=== PATIENT | female | born 1995 | race Caucasian/White ===

== ENCOUNTER 2020-08-31 11:42 | Outpatient (CLI) | payer OTHER, SELFPAY ==
[2020-09-02 03:52] LABS: Patient Race White; SARS-CoV-2 RNA Undetected (Undetected); SARS-CoV-2 Specimen Source Nasopharynx
== END 2020-08-31 12:02 ==
PROVIDERS: PCP Nurse Practitioner Family; Visit Provider Nurse Practitioner Family
DX: J06.9 Acute upper respiratory infection, unspecified (principal)
CPT/HCPCS: U0003

== ENCOUNTER 2020-10-27 02:25 | Outpatient (CLI) | payer OTHER, SELFPAY ==
[2020-10-29 18:53] LABS: Patient Race White; SARS-CoV-2 RNA Undetected (Undetected); SARS-CoV-2 Specimen Source Nasal
== END 2020-10-27 02:45 ==
PROVIDERS: PCP Nurse Practitioner Family; Visit Provider Nurse Practitioner Family
DX: Z11.59 Encounter for screening for other viral diseases (principal); Z20.828 Contact with and (suspected) exposure to other viral communicable diseases
CPT/HCPCS: U0003

== ENCOUNTER 2020-11-02 02:24 | Outpatient (CLI) | payer OTHER, SELFPAY ==
[2020-11-03 23:24] LABS: COVID-19 RT-PCR Result NEGATIVE (Negative)
== END 2020-11-02 02:44 ==
PROVIDERS: PCP Nurse Practitioner Family; Visit Provider Nurse Practitioner Family
DX: Z20.828 Contact with and (suspected) exposure to other viral communicable diseases (principal); Z11.59 Encounter for screening for other viral diseases
CPT/HCPCS: U0003

== ENCOUNTER 2021-01-05 08:16 | Outpatient (CLI) | payer OTHER, SELFPAY ==
[2021-01-06 15:19] LABS: COVID-19 RT-PCR UVMMC Result Negative (Negative)
== END 2021-01-05 08:17 | disposition home or self-care (01) ==
LOC: LBO 08:16
PROVIDERS: PCP Nurse Practitioner Family; Visit Provider Nurse Practitioner Family
DX: Z20.822 Contact with and (suspected) exposure to COVID-19 (principal)
CPT/HCPCS: U0003

== ENCOUNTER 2021-05-28 01:27 | Outpatient (CLI) | payer OTHER, SELFPAY ==
[2021-05-28 12:41] LABS: HCT 42.3 % (36.0-46.0); HGB 13.7 g/dL (11.2-15.7); MCHC 32.4 % (32.0-36.0); MCV 95.7 fL (80-95); MPV 12.8 fL (8.0-11.0); Platelet Count 215 10^3/uL (130-400); RBC 4.42 10^6/uL (3.93-5.22); RDW 11.9 % (11.7-14.6); RDW-SD 41.6 fL
[2021-05-28 12:54] LABS: Anion Gap 8.9 mmol/L (3-11); BUN 9 mg/dL (7-18); CO2 28.1 mmol/L (21.0-32.0); CREATININE 0.8 mg/dL (0.55-1.02); Calcium 9.3 mg/dL (8.5-10.1); Chloride 105 mmol/L (98-107); Glucose 80 mg/dL (74-106); Potassium 4.2 mmol/L (3.5-5.1); Sodium 142 mmol/L (136-145); TSH 0.86 uIU/mL (0.36-3.74)
== END 2021-05-28 01:28 | disposition home or self-care (01) ==
LOC: LOS 01:27
PROVIDERS: PCP Nurse Practitioner Family; Visit Provider Nurse Practitioner Family
DX: R53.83 Other fatigue (principal)
CPT/HCPCS: 36415; 80048; 85027; 84439; 84443

== ENCOUNTER 2021-07-09 15:57 | Outpatient (REF) | payer OTHER, SELFPAY ==
[2021-07-11 01:25] LABS: COVID-19 RT-PCR UVMMC Result Negative (Negative)
== END 2021-07-09 15:58 | disposition home or self-care (01) ==
LOC: LBN 15:57
PROVIDERS: PCP Nurse Practitioner Family; Visit Provider Physician Assistant
DX: Z20.822 Contact with and (suspected) exposure to COVID-19 (principal)
CPT/HCPCS: U0003

== ENCOUNTER 2021-07-13 15:50 | Emergency (ER) | payer OTHER, SELFPAY ==
[2021-07-13] VITALS (7 sets, daily range): BP systolic 109–118; BP diastolic 59–70; PULSE 75–98; RESP 14–22; TEMP 36.3; O2SAT 100
--- NOTE | 2021-07-13 16:00 | DI.RAD_ITS ---
Exam(s) XR PORTABLE CHEST AP EXAM: XR PORTABLE CHEST AP CLINICAL HISTORY: shortness of breath. TECHNIQUE: 2D digital imaging was performed. COMPARISON: No exams were available for comparison FINDINGS: Heart size is normal. The mediastinum is not widened. Lungs are clear. No infiltrates nor obvious pleural effusions. IMPRESSION: No acute pulmonary findings on this single AP portable view of the chest. DATA REPOSITORY: RADIATION DOSE DELIVERED: All CT scans at this facility use at least one of these dose optimization techniques: automated exposure control; mA and/or kV adjustment per patient size (includes targeted e xams where dose is matched to clinical indication); or iterative reconstruction.
--- NOTE | 2021-07-13 16:00 | RT.EKG_ITS ---
APPROVED REPORT Exam: Resting ECG Reason for Exam: shortness of breath Patient Location: E HR:90 bpm ECG Measurements Heart Rate 90 AXIS NM 114 P 38 QRSd 77 QRS 61 QT 367 T 32 QTc 449 Conclusion Sinus rhythm...normal P axis, V-rate 60- 99
--- NOTE | 2021-07-13 16:20 | ED.GENADUL_ITS ---
Discharge Plan Disposition Patient Disposition: HOME Condition: Stable Discharge Details Clinical Impression: Asthma exacerbation, Shortness of breath Primary Care Provider: Jocelyn Dhillon ED Provider: Kilo Hudson Home Meds and New Rx's Prescriptions: New prednisone 20 mg tablet 60 mg PO DAILY 4 Days Qty: 12 RF: 0 Continued albuterol sulfate 2.5 mg /3 mL (0.083 %) solution for nebulization 2.5 mg IH Q6H PRN (Reason: shortness of breath or wheezing) Qty: 180 RF: 4 loratadine [Allergy Relief (loratadine)] 10 mg tablet 10 mg PO DAILY RF: 0 famotidine 20 mg tablet 20 mg PO DAILY Qty: 90 RF: 0 methocarbamol 500 mg tablet 500 mg PO TID PRN (Reason: muscle spasm) Qty: 30 RF: 0 montelukast 10 mg tablet 10 mg PO DAILY Qty: 90 RF: 4 desogestrel-ethinyl estradiol [Apri] 0.15-0.03 mg tablet 1 tab PO DAILY Qty: 168 RF: 4 albuterol sulfate 90 mcg/actuation HFA aerosol inhaler 2 inh IH Q6H PRN (Reason: shortness of breath or wheezing) Qty: 18 RF: 4 budesonide-formoterol [Symbicort] 80-4.5 mcg/actuation HFA aerosol inhaler 2 puff IH BID Qty: 10.2 RF: 4 fluticasone propionate [Allergy Relief (fluticasone)] 50 mcg/actuation spray,suspension 2 spray intranasal DAILY PRN (Reason: allergy symptoms) Qty: 15.8 RF: 4 epinephrine 0.3 mg/0.3 mL auto-injector 0.3 ml subcut Q5-15M PRN (Reason: hypersensitivity reaction) Qty: 2 RF: 4 benzonatate [Tessalon Perles] 100 mg capsule 100 mg PO TID PRN (Reason: cough) Qty: 14 RF: 0 indomethacin 50 mg capsule 50 mg PO DAILY RF: 0 Discharge Instructions Instructions: Asthma (ED) Additional Instructions: your blood work, ekg and xray did not show concerning findings take the prednisone once a day for 4 more days follow up with your primary care provider within a week if you feel more ill, have worsening difficulty breathing or severe chest pain return to the emergency department Medical Decision Making 25 yo female with hx of asthma, who comes in with one week of shortness of breath along with dry cough. She states she has seen her pcp and had a covid test done on Monday that was negative. She has been using her albuterol with minimal relief. She has no chest pain or pressure. Also notes some rhinorrhea. She appears well systemically on exam. She states she had a fever to 102 yesterday none today and denies ivdu. She has wheezing in both lower lung lobes on exam as well as the apices. No jvd, no calf tenderness or leg swelling and no murmurs, no rashes or other stigmata of endocarditis. I suspect asthma exacerbation in the setting of a viral uri vs allergies but given persistent symptoms and her fever yesterday will obtain cxr to evaluate for infiltrate. Her wells score is low but given her oral contraceptive use can't use perc to exclude PE, will obtain d dimer. No chest pain or pressure so doubt acs but could have myocarditis, will obtain ecg and troponin labs and imaging unremarkable and she feels better after duoneb and only has apical bilateral wheezing now clear lungs otherwise. Covid negative. She is stable for d/c, will start her on prednisone and have her f/u with pcp and return precautions given Differential Diagnosis Differential Diagnosis: viral uri, covid, pneumonia, PE Imaging Data Radiologic Study: Attestation: I personally reviewed and interpreted this imaging study as follows: Imaging: X-Ray Radiologist's impression: no acute findings Lab Data Lab results reviewed: Yes I reviewed the patient's lab results. ECG Data Attestation: I personally reviewed and interpreted this ECG (s) as follows: Prior ECG tracings: not available for review HPI General Mode of arrival: ambulatory . Date/Time Provider Initiated Documentation: 07/13/21 15:52 . Limitations to Documentation: no limitations . Information obtained by: patient . History of Present Illness 25 year old F presents to the emergency department with the chief complaint of shortness of breath, described as moderate, Patient started experiencing this week(s) (1) and it has been constant. Rest improves symptom(s), Movement worsens symptoms . Patient notes cough. Patient did receive the following treatments prior to arrival, other (albuterol) Related Data Home Medications Medication Instructions Recorded Confirmed albuterol sulfate 2.5 mg IH Q6H PRN #180 ml 07/13/20 07/13/21 albuterol sulfate 90 mcg/actuation 2 inh IH Q6H PRN #18 gm 11/23/20 07/13/21 aerosol inhaler budesonide-formoterol HFA 80 2 puff IH BID #10.2 gm 11/23/20 07/13/21 mcg-4.5 mcg/actuation aerosol inhaler fluticasone propionate 50 2 spray INTRANASAL DAILY PRN #15.8 11/24/20 07/13/21 mcg/actuation nasal ml spray,suspension loratadine 10 mg tablet 10 mg PO DAILY 12/02/20 07/13/21 methocarbamol 500 mg tablet 500 mg PO TID PRN #30 tab 12/11/20 07/13/21 epinephrine 0.3 mg/0.3 mL 0.3 ml SUBCUT Q5-15M PRN #2 ea 05/25/21 07/13/21 injection, auto-injector famotidine 20 mg tablet 20 mg PO DAILY #90 tab 06/25/21 07/13/21 desogestrel 0.15 mg-ethinyl 1 tab PO DAILY #168 tab 07/05/21 07/13/21 estradiol 0.03 mg tablet montelukast 10 mg tablet 10 mg PO DAILY #90 tab 07/05/21 07/13/21 benzonatate 100 mg capsule 100 mg PO TID PRN #14 cap 07/12/21 07/13/21 indomethacin 50 mg PO DAILY 07/13/21 07/13/21 prednisone 60 mg PO DAILY 4 Days #12 tab 07/13/21 Previous Rx's Medication Instructions Recorded albuterol sulfate 2.5 mg IH Q6H PRN #180 ml 07/13/20 albuterol sulfate 90 mcg/actuation 2 inh IH Q6H PRN #18 gm 11/23/20 aerosol inhaler budesonide-formoterol HFA 80 2 puff IH BID #10.2 gm 11/23/20 mcg-4.5 mcg/actuation aerosol inhaler fluticasone propionate 50 2 spray INTRANASAL DAILY PRN #15.8 11/24/20 mcg/actuation nasal ml spray,suspension methocarbamol 500 mg tablet 500 mg PO TID PRN #30 tab 12/11/20 epinephrine 0.3 mg/0.3 mL 0.3 ml SUBCUT Q5-15M PRN #2 ea 05/25/21 injection, auto-injector famotidine 20 mg tablet 20 mg PO DAILY #90 tab 06/25/21 desogestrel 0.15 mg-ethinyl 1 tab PO DAILY #168 tab 07/05/21 estradiol 0.03 mg tablet montelukast 10 mg tablet 10 mg PO DAILY #90 tab 07/05/21 benzonatate 100 mg capsule 100 mg PO TID PRN #14 cap 07/12/21 prednisone 60 mg PO DAILY 4 Days #12 tab 07/13/21 Allergies Allergy/AdvReac Type Severity Reaction Status Date / Time lavender (Lavandula Allergy Mild Verified 07/13/21 15:57 angustifolia) amoxicillin [From Augmentin] AdvReac Intermediate GI Verified 07/13/21 15:57 clavulanic acid AdvReac Intermediate GI Verified 07/13/21 15:57 [From Augmentin] dairy Allergy Severe Uncoded 07/13/21 15:57 General Stated Complaint: RespSymp POLO: 3 Review of Systems All systems reviewed & are unremarkable except as noted in HPI and below Constitutional Constitutional: Denies chills and Denies weakness Cardiovascular Cardiovascular: Denies chest pain Gastrointestinal Gastrointestinal: Denies abdominal pain, Denies nausea and Denies vomiting Genitourinary Genitourinary: Denies dysuria Musculoskeletal Musculoskeletal: Denies joint swelling Neurologic Neurologic: Denies weakness [facility] Medical History Allergic rhinitis 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 entry and deep. GERD (gastroesophageal reflux disease) LLQ pain Migraine headache Moderate persistent asthma Oral contraceptive pill surveillance Seizures As a child, resolved at age 10 Surgical History S/P sinus surgery (06/08/20) Family History Mother Asthma Heart disease Hyperlipidemia Myocardial infarction Endometriosis Father , age 54 overdosed from alcohol poisoning Alcohol abuse Substance abuse Sister Asthma Endometriosis Maternal Grandfather Brain aneurysm Maternal Grandmother , from post polio syndrome No problems noted. Paternal Grandfather No problems noted. 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 Together since 2016 Number of Children: 0 Communication Needs: None Education Level: college Details: Education degree. [employer] current occupation: [employer]. Relocated from [place] Pets and animals: No Sexually active: No Do you think of yourself as: straight/heterosexual Current gender identity: female What is your relationship status?: living with partner How often do you talk on the phone with friends or family?: three or more times per week How often do you get together with friends or relatives?: three or more times per week How often do you attend buddhist or muslim services?: decline to answer Do you belong to any clubs or organized social groups?: no Panel score (0-1 are the most socially isolated patients): 2 What type of physical activity do you participate in: walking and aerobic Duration: 15-30 minutes/day Frequency: 3-4 times per week Roxy/Muslim: Hoahaoism Seatbelt use: always Helmet use: Yes Helmet use: always Drive intox or ride w/intox mechanic driver: No Do you feel safe at home: Yes Do you feel safe in your relationship?: Yes Female Reproductive History Menstrual Age of Menarche: 15 control method: pills History History 0 Para Hx # Term Pregnancies Multiple births Hx # Pregnancies Ectopic pregnancies AB induced Hx Number of Living Children AB spontaneous Exam Const General: no acute distress Orientation: alert HENMT Head: normal to inspection Ears: external ears normal General nose exam: external nose normal Mouth: moist mucous membranes Eyes General: appearance normal, both eyes and all related structures Neck Neck: normal visual inspection Resp Effort & Inspection: normal respiratory effort and able to speak in complete sentences Cardio Rate: regular rate Skin General skin exam: no rashes or lesions noted Neuro General: patient alert and patient oriented x3 Extrem General: normal to inspection Psych Mental Status: mental status grossly normal Course Vital Signs Vital signs: Vital Signs Temperature 36.3 C L 07/13/21 15:53 Pulse 95 H 07/13/21 15:53 Respiratory Rate 14 07/13/21 15:53 Pulse Oximetry 100 07/13/21 15:53 Temperature 36.3 C L 07/13/21 15:53 Temperature Source Skin 07/13/21 15:53 Pulse 95 H 07/13/21 15:53 Respiratory Rate 14 07/13/21 15:53 Respiratory Effort Non-Labored 07/13/21 15:59 Respiratory Depth Normal 07/13/21 15:59 Blood Pressure Position Supine 07/13/21 15:53 Pulse Oximetry 100 07/13/21 15:53 Oxygen Delivery Method Room Air 07/13/21 15:53 Oxygen Flow Rate 0 07/13/21 15:53 Pain Level 4 07/13/21 15:53 Comment 07/13/21 15:53
[2021-07-13 16:26] LABS: Source Nasal/Nares
[2021-07-13 16:36] LABS: Abs Immature Grans 0.01 10^3/uL (0.0-0.06); Absolute Basophil Count 0.03 10^3/uL (0.0-0.2); Absolute Eosinophil Count 0.04 10^3/uL (0.0-0.7); Absolute Lymphocyte Count 3.13 10^3/uL (1.2-3.4); Absolute Monocyte Count 0.51 10^3/uL (0.1-0.8); Absolute Neutrophil Count 4.41 10^3/uL (1.2-6.7); Basophils % 0.4; Eosinophils % 0.5; HCT 43.3 % (36.0-46.0); HGB 14.2 g/dL (11.2-15.7); Immature Grans % 0.1; Lymphocytes % 38.5; MCH 30.5 pg (27.0-33.0); MCHC 32.8 % (32.0-36.0); MCV 92.9 fL (80-95); MPV 12.1 fL (8.0-11.0); Monocytes % 6.3; Neutrophils % 54.2; Nucleated RBC 0 %; Platelet Count 249 10^3/uL (130-400); RBC 4.66 10^6/uL (3.93-5.22); RDW 11.6 % (11.7-14.6); RDW-SD 39.6 fL; WBC 8.13 10^3/uL (4.4-10.8)
[2021-07-13 16:51] LABS: ALT 12 U/L (14-59); AST 9 U/L (15-37); Albumin 3.4 g/dL (3.4-5.0); Alkaline Phosphatase 66 U/L (46-116); Anion Gap 7.1 mmol/L (3-11); BUN 10 mg/dL (7-18); Bilirubin, Total 0.2 mg/dL (0.2-1.0); CO2 27.9 mmol/L (21.0-32.0); CREATININE 0.7 mg/dL (0.55-1.02); Calcium 8.8 mg/dL (8.5-10.1); Chloride 103 mmol/L (98-107); Glucose 118 mg/dL (74-106); Magnesium 2.3 mg/dL (1.8-2.4); NT-proBNP 23 pg/mL (<300); Potassium 3.6 mmol/L (3.5-5.1); Sodium 138 mmol/L (136-145); Total Protein 7.3 g/dL (6.4-8.2); Troponin I < 0.05 ng/mL (<0.06)
[2021-07-13 17:01] LABS: D-Dimer 139 ng/mlFEU (<500)
[2021-07-13] MEDS: Albuterol/Ipratropium 3 ML UPD VIAL UPD (17:07)
[2021-07-13] MEDS: methylPREDNISolone SUCC 125 MG VIAL IVP (17:08)
--- NOTE | 2021-07-13 17:13 | DI.VRAD_ITS ---
PROCEDURE INFORMATION: Exam: XR Chest Exam date and time: 07/13/2021 4:08 PM Age: 25 years old Clinical indication: Other: Shortness of breath TECHNIQUE: Imaging protocol: XR of the chest. Views: 1 view. COMPARISON: No relevant prior studies available. FINDINGS: Lungs: No mass. No consolidation. Pleural spaces: Unremarkable. No pleural effusion. No pneumothorax. Heart/Mediastinum: Unremarkable cardiomediastinal silhouette. No cardiomegaly. Bones/joints: Unremarkable. IMPRESSION: No evidence for acute cardiopulmonary disease. Dictated and Authenticated by: Lavon Gardner MD. Ordering:SIL Boateng MD
[2021-07-13 17:17] LABS: COVID-19 PCR Negative (Negative)
== END 2021-07-13 18:11 | disposition home or self-care (01) ==
PROVIDERS: Emergency Provider Emergency Medicine; PCP Nurse Practitioner Family
DX: J45.901 Unspecified asthma with (acute) exacerbation (principal); R50.9 Fever, unspecified; Z77.22 Contact with and (suspected) exposure to environmental tobacco smoke (acute) (chronic); R06.02 Shortness of breath
CPT/HCPCS: 36415; 80053; 81025; 87635; 93005; 94640; 96374; 99284; 71045; 83735; 83880; 84484; 85025; 85379; 93010; J2930; J7620

== ENCOUNTER 2021-10-18 01:58 | Outpatient (CLI) | payer OTHER, SELFPAY ==
--- NOTE | 2021-10-18 12:45 | W.PFT ---
Date of service: 10/18/21 Time of Service: 08:05 Pulmonary Function Test Result Requesting Provider Jake Abel Indications: BEVERLY Interpretation Spirometry: No airflow limitation. There is no significant bronchodilator response. Impression Normal spirometry Clinical Correlation therefore is recommended.
[2021-10-18] MEDS: Inhaler, Assist Device 1 EACH MC (13:57)
[2021-10-18] MEDS: Albuterol HFA 18 GM 200 PUFF INH IH (13:57)
== END 2021-10-18 01:59 | disposition home or self-care (01) ==
LOC: RT 01:58
PROVIDERS: PCP Nurse Practitioner Family; Visit Provider Physician Assistant
DX: R06.09 Other forms of dyspnea (principal); R05.8 Other specified cough
CPT/HCPCS: 94060

== ENCOUNTER 2021-10-29 02:28 | Outpatient (CLI) | payer OTHER, SELFPAY ==
[2021-11-01 13:19] LABS: IgA 136 mg/dL (85-499); Interpretation (See Note); Tissue Transglutaminase IgA <1.2 U/mL (<4.0)
[2021-11-01 21:37] LABS: Baker's Yeast, IgE <0.35 kU/L; Beef IgE <0.35 kU/L; Black/White Pepper IgE <0.35 kU/L; Cacao/Cocoa, IgE <0.35 kU/L; Clam IgE <0.35 kU/L; Coconut IgE <0.35 kU/L; Crab IgE <0.35 kU/L; Egg Whole IgE <0.10 kU/L; Lobster IgE <0.35 kU/L; Milk, IgE <0.35 kU/L; Mushroom, IgE <0.35 kU/L; Scallop IgE <0.35 kU/L; Shrimp IgE <0.35 kU/L
[2021-11-01 21:51] LABS: Cranberry IgE <0.35 kU/L; Oyster IgE <0.35 kU/L
[2021-11-03 13:31] LABS: Misc Referral (MAYO) See Comments
== END 2021-10-29 02:29 | disposition home or self-care (01) ==
LOC: LBO 02:28
PROVIDERS: PCP Nurse Practitioner Family; Visit Provider Otolaryngology Otolaryngology/Facial Plastic Surgery
DX: Z91.018 Allergy to other foods (principal); T78.3XXA Angioneurotic edema, initial encounter; L50.9 Urticaria, unspecified
CPT/HCPCS: 36415; 82784; 83516; 86003

== ENCOUNTER 2021-11-18 11:01 | Outpatient (REF) | payer OTHER, SELFPAY ==
[2021-11-19 16:52] LABS: COVID-19 RT-PCR UVMMC Result Negative (Negative)
== END 2021-11-18 11:02 | disposition home or self-care (01) ==
LOC: LBN 11:01
PROVIDERS: PCP Nurse Practitioner Family; Visit Provider Physician Assistant
DX: Z20.822 Contact with and (suspected) exposure to COVID-19 (principal)
CPT/HCPCS: U0003

== ENCOUNTER 2021-12-01 03:48 | Outpatient (CLI) | payer OTHER, SELFPAY ==
[2021-12-02 10:39] LABS: C4 Complement 23 mg/dL (13-39)
[2021-12-02 14:29] LABS: Cinnamon, IgE <0.35 kU/L
== END 2021-12-01 03:49 | disposition home or self-care (01) ==
LOC: LBO 03:49
PROVIDERS: PCP Nurse Practitioner Family; Visit Provider Physician Assistant
DX: T78.3XXD Angioneurotic edema, subsequent encounter (principal); L50.9 Urticaria, unspecified
CPT/HCPCS: 36415; 86003; 83520; 86160

== ENCOUNTER 2022-06-13 12:20 | Outpatient (REF) | payer OTHER, SELFPAY ==
--- NOTE | 2022-06-13 11:20 | PAPFT_PTH ---
PATIENT: Shira Romo LOC: [facility] U#:[id number] AGE/SX: 26/F ROOM: RE06/13/[address]: Nirali Wen : 1995 BED: DIS: 06/13/2022 SPEC #: [id number] RECD: 06/13/22 13:09 STATUS: MEGAN RETiara #: [id number] HERBERT: 06/13/22 11:[address]: Nirali Wen DEPT: [facility] Cytology RECD BY: Cecile Barbosa ENTERED: 06/13/22 13:10 SP TYPE: PAPFT OTHR DR: Jocelyn Dhillon, ARELI Tissues: 1 - CX/ENDOCX FOR PAP SMEARS Procedures: PAP THIN PREP/UVM Screening Comments: [id number]
[2022-06-14 15:28] LABS: Chlamydia Result Negative (Negative); GC Result Negative (Negative)
== END 2022-06-13 12:21 | disposition home or self-care (01) ==
LOC: LBN 12:20
PROVIDERS: PCP Nurse Practitioner Family; Visit Provider Obstetrics & Gynecology Gynecology
DX: N94.6 Dysmenorrhea, unspecified (principal); R10.2 Pelvic and perineal pain; Z11.3 Encounter for screening for infections with a predominantly sexual mode of transmission; Z12.4 Encounter for screening for malignant neoplasm of cervix
CPT/HCPCS: 87491; 87591; 88142

== ENCOUNTER 2022-10-29 10:38 | Emergency (ER) | payer OTHER, SELFPAY ==
[2022-10-29] VITALS (16 sets, daily range): BP systolic 88–127; BP diastolic 50–81; PULSE 96–136; RESP 24; TEMP 36.8–37.4; O2SAT 98
--- NOTE | 2022-10-29 11:00 | DI.RAD_ITS ---
Exam(s) XR PORTABLE CHEST AP EXAM: XR PORTABLE CHEST AP CLINICAL HISTORY: covid positive, cough, tachycardia. TECHNIQUE: 2D digital imaging was performed. COMPARISON: CR,XR XR PORTABLE CHEST AP from 07/13/2021 FINDINGS: LUNGS: Clear. No pleural abnormality seen. HEART: Normal. MEDIASTINUM: Normal. OTHER FINDINGS: None. IMPRESSION: No acute pulmonary findings. DATA REPOSITORY: RADIATION DOSE DELIVERED: Total DLP
--- NOTE | 2022-10-29 11:23 | W.ED.GENAD ---
Discharge Plan Disposition Patient Disposition: Home Condition: Improving Discharge Details Chief Complaint: RespSymp Clinical Impression: COVID, Dehydration Primary Care Provider: Jocelyn Dhillon ED Provider: Enrique Mccoy Home Meds and New Rx's Prescriptions: No Action norethindrone ac-eth estradiol [ (21)] 1.5-30 mg-mcg tablet 1 tab PO .COMPLEX Qty: 63 5RF Rx Instructions: 1 tab orally active pills daily. No withdrawal bleed; fluticasone propionate [Allergy Relief (fluticasone)] 50 mcg/actuation spray,suspension 2 spray intranasal DAILY PRN (Reason: allergy symptoms) 90 Days Qty: 48 4RF Rx Instructions: administer into each nostril albuterol sulfate 1.25 mg/3 mL solution for nebulization 1.25 mg inhalation Q8H PRN (Reason: shortness of breath or wheezing) Qty: 90 3RF albuterol sulfate 90 mcg/actuation HFA aerosol inhaler 2 inh IH Q6H PRN (Reason: shortness of breath or wheezing) Qty: 18 4RF epinephrine 0.3 mg/0.3 mL auto-injector 0.3 ml subcut Q5-15M PRN (Reason: hypersensitivity reaction) Qty: 2 4RF Rx Instructions: do not exceed 2 doses per episode Discharge Instructions Instructions: Dehydration (ED), Viral Syndrome (ED) Additional Instructions: Continue with ibuprofen and/or acetaminophen at home for fevers and body aches. Stay hydrated consider buying Gatorade and/or Pedialyte on top of the normal fluids that you are taking daily. Please help with your primary care physician. Please return to the emergency department for any worsening symptoms Medical Decision Making 27-year-old female presents with tachycardia cough and fever tested positive for COVID, patient currently resting comfortably lungs clear bilaterally speaking full sentences, had taken antipyretics earlier today, was seen at [facility] here for evaluation of shortness of breath and tachycardia, nontoxic no acute distress afebrile currently, persistently tachycardic to the 120s sinus on the monitor, likely symptomatic COVID must consider superimposed pneumonia versus dehydration, lower suspicion for PE although patient is on exogenous estrogen she is low risk Wells criteria and symptomatology and examination more consistent with acute viral syndrome. At this point ordering a D-dimer compared to be falsely elevated due to patient's inflammatory state. If patient's tachycardia and symptomatology do not improve after fluids anti-inflammatory medications and rest consider further evaluation for thromboembolic disease however more likely viral versus superimposed pneumonia 14: 25 patient resting comfortably. Heart rate in the 90s currently. No respiratory distress. Labs and imaging unremarkable. Likely component of dehydration in the setting of viral syndrome, COVID. Home care instructions and return precautions given. Sign Out No HPI General Date/Time Provider Initiated Documentation: 10/29/22 10:59. HPI Narrative: 27-year-old female brought in by EMS from [facility] for evaluation of tachycardia and cough, tested positive for COVID. Related Data Home Medications Medication Instructions Recorded Confirmed albuterol sulfate 90 mcg/actuation 2 inh inhalation Q6H PRN shortness 11/23/20 10/29/22 aerosol inhaler of breath or wheezing #18 grams epinephrine 0.3 mg/0.3 mL 0.3 ml subcut Q5-15M PRN 05/25/21 10/29/22 injection, auto-injector hypersensitivity reaction #2 ea norethindrone acetate 1.5 1 tab PO .COMPLEX #63 tabs 06/13/22 10/29/22 mg-ethinyl estradiol 30 mcg tablet () fluticasone propionate 50 2 spray intranasal DAILY PRN 08/08/22 10/29/22 mcg/actuation nasal allergy symptoms 90 days #48 mL spray,suspension (Allergy Relief (fluticasone)) albuterol sulfate 1.25 mg/3 mL 1.25 mg (3 mL) inhalation Q8H PRN 10/17/22 10/29/22 solution for nebulization shortness of breath or wheezing #90 mL Previous Rx's Medication Instructions Recorded albuterol sulfate 90 mcg/actuation 2 inh inhalation Q6H PRN shortness 11/23/20 aerosol inhaler of breath or wheezing #18 grams epinephrine 0.3 mg/0.3 mL 0.3 ml subcut Q5-15M PRN 05/25/21 injection, auto-injector hypersensitivity reaction #2 ea norethindrone acetate 1.5 1 tab PO .COMPLEX #63 tabs 06/13/22 mg-ethinyl estradiol 30 mcg tablet () fluticasone propionate 50 2 spray intranasal DAILY PRN 08/08/22 mcg/actuation nasal allergy symptoms 90 days #48 mL spray,suspension (Allergy Relief (fluticasone)) albuterol sulfate 1.25 mg/3 mL 1.25 mg (3 mL) inhalation Q8H PRN 10/17/22 solution for nebulization shortness of breath or wheezing #90 mL Allergies Allergy/AdvReac Type Severity Reaction Status Date / Time lactose Allergy Severe Verified 10/29/22 10:47 lavender (Lavandula Allergy Mild Verified 10/29/22 10:47 angustifolia) dairy Allergy Severe Uncoded 10/29/22 10:47 General Stated Complaint: RespSymp POLO: 3 Review of Systems Narrative: Review of Systems Constitutional: Fever Eyes: negative ENT: negative Cardiovascular: negative Respiratory: Cough Gastrointestinal: negative : negative Musculoskeletal: negative Skin: negative Neurologic: negative Psych: negative PFSH All Active Problems (Updated 10/29/22 @ 14:25 by Enrique Mccoy MD) COVID (Acute) Dehydration (Acute) Exercise-induced asthma (Chronic) 04/2022-managed with as needed albuterol Normal PFTs 2020 Chronic rhinitis (Chronic) Food allergy (Chronic) Recurrent hives Dyspareunia in female (Chronic) longstanding. entry and deep. Rx with pelvic floor PT. Chronic sinusitis (Chronic) GERD (gastroesophageal reflux disease) (Chronic) Dysmenorrhea (Chronic) 05/2022 reluctant to use levonorgestrel IUD or Nexplanon. Continuous active OCPs for a number of years. No withdrawal menses. 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 Paternal Grandfather No problems noted. 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 Together 6 years Number of Children: 0 Communication Needs: None Education Level: other Details: Studying for masters in education at [employer] [place] Do you need help understanding health information?: Never current occupation: [employer]. Relocated from [place] Pets and animals: No Sexually active: Yes Do you think of yourself as: straight/heterosexual Current gender identity: female What is your relationship status?: living with partner How often do you talk on the phone with friends or family?: twice per week How often do you get together with friends or relatives?: twice per week How often do you attend tenriism or mandaeism services?: decline to answer Do you belong to any clubs or organized social groups?: decline to answer Panel score (0-1 are the most socially isolated patients): 2 What type of physical activity do you participate in: walking and aerobic Duration: 15-30 minutes/day Frequency: 3-4 times per week Roxy/Adventism: Mu-Ism Seatbelt use: always Helmet use: Yes Helmet use: always Drive intox or ride w/intox grain combine driver: No Do you feel safe at home: Yes Do you feel safe in your relationship?: Yes Female Reproductive History Menstrual Age of Menarche: 15 control method: pills History History 0 Para Hx # Term Pregnancies Multiple births Hx # Pregnancies Ectopic pregnancies AB induced Hx Number of Living Children AB spontaneous Exam Narrative Exam Narrative: Physical Examination General: alert, awake, cooperative, resting comfortably, no acute distress HEENT: normocephalic, atraumatic; PERRL, EOM intact, conjunctiva normal; no nasal discharge; moist mucous membranes, oral and pharyngeal mucosa normal, tolerating secretions Neck: supple, trachea midline; full ROM Chest: normal to inspection Respiratory: normal respiratory effort, speaking in full sentences, clear to auscultation, no wheezing, rales or rhonchi Cardiac: Tachycardia, regular rhythm, S1S2 intact, no murmurs rubs or gallops GI: abdomen soft, non-tender, non-distended; no palpable mass or hepatosplenomegaly Skin: no lesions, rashes or trauma appreciated Neuro: AAOx3, normal speech, moving all extremities Extremities: No peripheral edema Psych: Appropriate mood and affect Course Vital Signs Vital signs: Vital Signs Temperature 37.4 C 10/29/22 10:42 Pulse 136 H 10/29/22 10:42 Respiratory Rate 24 10/29/22 10:42 Blood Pressure 127/81 10/29/22 10:42 Pulse Oximetry 98 10/29/22 10:42 Temperature 37.4 C 10/29/22 10:42 Temperature Source Oral 10/29/22 10:42 Pulse 136 H 10/29/22 10:42 Respiratory Rate 24 10/29/22 10:42 Respiratory Effort 10/29/22 10:49 Respiratory Depth Normal 10/29/22 10:49 Blood Pressure 127/81 10/29/22 10:42 Blood Pressure Position Sitting 10/29/22 10:42 Pulse Oximetry 98 10/29/22 10:42 Oxygen Delivery Method Room Air 10/29/22 10:42 Oxygen Flow Rate 0 10/29/22 10:42 Pain Level 6 10/29/22 10:42
[2022-10-29] MEDS: Normal Saline 1,000 ML 1000 ML IV ×2 (11:27→13:08)
[2022-10-29] MEDS: Dexamethasone 10 MG/ML VIAL IVP (11:27)
[2022-10-29 11:36] LABS: Abs Immature Grans 0.04 10^3/uL (0.0-0.06); Absolute Eosinophil Count 0.03 10^3/uL (0.0-0.7); Absolute Lymphocyte Count 1.13 10^3/uL (1.2-3.4); Absolute Monocyte Count 0.91 10^3/uL (0.1-0.8); Absolute Neutrophil Count 8.98 10^3/uL (1.2-6.7); Basophils % 0.4; Eosinophils % 0.3; HCT 41.8 % (36.0-46.0); HGB 13.9 g/dL (11.2-15.7); Immature Grans % 0.4; Lymphocytes % 10.1; MCH 31.1 pg (27.0-33.0); MCHC 33.3 % (32.0-36.0); MCV 94 fL (80-95); MPV 12.2 fL (8.0-11.0); Monocytes % 8.2; Neutrophils % 80.6; Platelet Count 252 10^3/uL (130-400); RBC 4.47 10^6/uL (3.93-5.22); RDW 11.9 % (11.7-14.6); RDW-SD 40.6 fL; WBC 11.14 10^3/uL (4.4-10.8)
[2022-10-29 11:37] LABS: Absolute Basophil Count 0.04 10^3/uL (0.0-0.2)
[2022-10-29 11:45] LABS: ALT 16 U/L (14-59); AST 14 U/L (15-37); Albumin 3.4 g/dL (3.4-5.0); Alkaline Phosphatase 61 U/L (46-116); BUN 10 mg/dL (7-18); Bilirubin, Total 0.3 mg/dL (0.2-1.0); CREATININE 0.8 mg/dL (0.55-1.02); Calcium 9.1 mg/dL (8.5-10.1); Chloride 101 mmol/L (98-107); Glucose 91 mg/dL (74-106); Potassium 3.6 mmol/L (3.5-5.1); Sodium 136 mmol/L (136-145); Total Protein 7.4 g/dL (6.4-8.2)
[2022-10-29 11:54] LABS: Bilirubin Negative (Negative); Blood Trace-intact (Negative); Clarity Clear (Clear); Glucose Negative (Negative); Ketones Negative (Negative); Leukocyte Esterase Small (Negative); Nitrite Negative (Negative); Urobilinogen 0.2 EU/dL (Up TO 0.2); pH 7.5 (5-8)
[2022-10-29 12:01] LABS: Bacteria Few HPF (Negative); C & S Indicated? No/Sq. Contamination; Casts Negative LPF (Negative); Crystals Negative HPF (Negative); Epithelial Cells Many HPF (Negative); Mucus Trace (Negative); RBC 0-2 HPF (0-2)
--- NOTE | 2022-10-29 12:16 | DI.VRAD_ITS ---
PROCEDURE INFORMATION: Exam: XR Chest Exam date and time: 10/29/2022 11:40 AM Age: 27 years old Clinical indication: Other: Covid positive, cough, tachycardia.No history of trauma or recent surgery is provided. TECHNIQUE: Imaging protocol: Radiologic exam of the chest. 1image(s) are provided. Views: 1 view. COMPARISON: XR PORTABLE CHEST AP 07/13/2021 4:43 PM FINDINGS: Lungs: No interval lobar consolidation is appreciated. Pleural spaces: Unremarkable. No pneumothorax or pleural effusion is appreciated. Heart/Mediastinum: Unremarkable. The cardiomediastinal silhouette is normal. No cardiac decompensation is appreciated. Diaphragm: The hemidiaphragms are symmetric. Bones/joints: Unremarkable. No fracture or dislocation is appreciated. Soft tissues: No radiopaque foreign body or subcutaneous emphysema is appreciated. Other findings: No significant interval changes are appreciated. IMPRESSION: No interval lobar consolidation or cardiac decompensation is appreciated.No significant change of parenchymal aeration is appreciated. Dictated and Authenticated by: Catarino Dueñas MD. Ordering:BLAKE Nunez MD
[2022-10-29] MEDS: Acetaminophen 325 MG TAB 650 MG PO (13:11)
--- NOTE | 2022-10-29 15:23 | NUR.NOTE ---
Nursing Note: Accessed pt chart to see if pt had a chest CT done for ticket to ride.
--- NOTE | 2022-10-29 16:47 | NUR.NOTE ---
Addendum entered by Maritza Dunn 10/29/22 16:49: Meena Cheatham [phone] Original Note: Nursing Note: Mother, Meena Cheatham, called asking 1. what was the steriod given, daughter doesn't remember. 2. with severe asthma why not given antibodies? 3. no cough medicine was prescribed only told to take tylenol. Mother is on HIPPA form. Note given to Dr. Oviedo.
== END 2022-10-29 14:34 | disposition home or self-care (01) ==
PROVIDERS: Emergency Provider Emergency Medicine; PCP Nurse Practitioner Family
DX: U07.1 COVID-19 (principal); E86.0 Dehydration; R00.0 Tachycardia, unspecified; Z77.22 Contact with and (suspected) exposure to environmental tobacco smoke (acute) (chronic)
CPT/HCPCS: 36415; 80053; 81025; 96361; 96374; 99284; 71045; 81003; 81015; 85025; J1100

== ENCOUNTER 2022-11-16 16:32 | Outpatient (CLI) | payer OTHER, SELFPAY ==
--- NOTE | 2022-11-16 16:30 | RT.EKG_ITS ---
APPROVED REPORT Exam: Resting ECG Reason for Exam: chest discomfort Patient Location: O HR:79 bpm ECG Measurements Heart Rate 79 AXIS [place] 106 P 54 QRSd 76 QRS 66 QT 365 T 38 QTc 419 Conclusion Sinus rhythm...normal P axis, V-rate 50- 99 Short [place] interval...[place] <11 Otherwise normal
== END 2022-11-16 16:33 | disposition home or self-care (01) ==
LOC: DI.CM 16:33
PROVIDERS: PCP Nurse Practitioner Family; Visit Provider Physician Assistant
DX: R07.89 Other chest pain (principal)
CPT/HCPCS: 93010

== ENCOUNTER 2022-12-09 14:56 | Outpatient (RCR) | payer OTHER, SELFPAY ==
--- NOTE | 2022-12-09 14:45 | HOLTER_ITS ---
APPROVED REPORT Conclusion This is a 48-hour Holter monitor ordered for palpitations Rhythm throughout was sinus with an average heart rate of 88. Minimum was 64, maximum 151 There were no ventricular dysrhythmias There were rare isolated atrial premature beats There was no atrial fibrillation, no supraventricular tachycardia, no high-grade AV block, no pauses greater than 3 seconds
== END 2022-12-27 23:59 | disposition home or self-care (01) ==
LOC: CARDOPNVT 14:56
PROVIDERS: PCP Nurse Practitioner Family; Visit Provider Nurse Practitioner Family
DX: R00.2 Palpitations (principal)
CPT/HCPCS: 93225; 93226

== ENCOUNTER 2023-03-28 05:06 | Outpatient (CLI) | payer OTHER, SELFPAY ==
[2023-03-28] MEDS: Inhaler, Assist Device 1 EACH MC (09:00)
[2023-03-28] MEDS: Albuterol HFA 18 GM 200 PUFF INH IH (09:00)
--- NOTE | 2023-03-28 16:09 | W.PFT ---
Date of service: 03/28/23 Time of Service: 07:59 Pulmonary Function Test Result Indications: Dyspnea on exertion Interpretation Spirometry: There is no airway limitation. There is no significant bronchodilator response. Lung Volumes: There is air trapping Diffusion Capacity: Normal diffusion Airway Pressure: Normal airways resistance Impression Normal pulmonary function testing with some air trapping, which could be consistent with diagnosis of reactive airways disease. Note: When compared to 10/18/21, spirometry is stable. Clinical Correlation therefore is recommended.
== END 2023-03-28 05:07 | disposition home or self-care (01) ==
LOC: RT 05:11
PROVIDERS: PCP Student in an Organized Health Care Education/Training Program; Visit Provider Student in an Organized Health Care Education/Training Program
DX: R06.09 Other forms of dyspnea (principal); Z82.5 Family history of asthma and other chronic lower respiratory diseases
CPT/HCPCS: 94060; 94726; 94729

== ENCOUNTER 2023-04-07 15:10 | Outpatient (CLI) | payer OTHER, SELFPAY | END 2023-04-07 15:11 | disposition home or self-care (01) | PROVIDERS: PCP Student in an Organized Health Care Education/Training Program; Visit Provider Student in an Organized Health Care Education/Training Program | DX: D89.9 Disorder involving the immune mechanism, unspecified (principal); R00.0 Tachycardia, unspecified; R00.2 Palpitations; U09.9 Post COVID-19 condition, unspecified | CPT/HCPCS: 93246 ==

== ENCOUNTER 2023-04-10 12:26 | Outpatient (CLI) | payer OTHER, SELFPAY ==
--- NOTE | 2023-04-10 08:45 | DI.RAD_ITS ---
Exam(s) XR KNEE RT 4V AP,LAT,CAROL,PAT EXAM: XR KNEE RT 4V AP,LAT,CAROL,PAT CLINICAL HISTORY: eval bony path, knee pain, knee effusion rt, M25.569, M25.461. TECHNIQUE: 2D digital imaging was performed. Three views. COMPARISON: No exams were available for comparison FINDINGS: BONES: No acute fracture is present. No bony destructive lesion is seen. JOINTS: The knee is normally aligned. No joint effusion is seen. SOFT TISSUE: Normal. IMPRESSION: Unremarkable radiographs of the right knee. DATA REPOSITORY: RADIATION DOSE DELIVERED:
== END 2023-04-10 12:46 ==
LOC: DI 07-25 12:26
PROVIDERS: PCP Student in an Organized Health Care Education/Training Program; Visit Provider Student in an Organized Health Care Education/Training Program
DX: M25.561 Pain in right knee
CPT/HCPCS: 73564

== ENCOUNTER 2023-05-11 00:44 | Outpatient (CLI) | payer OTHER, SELFPAY ==
--- NOTE | 2023-05-11 08:45 | DI.MRI_ITS ---
Exam(s) MR LOWER JOINT RT WO EXAM: MR LOWER JOINT RT WO CLINICAL HISTORY: S87.80XA R KNEE CRUSHING INJURY M23.91 DERANGEMENT RT KNEE M25.561 PAIN TECHNIQUE: Multiplanar multisequence MRI of the knee was performed. COMPARISON: CR XR KNEE RT 4V AP,LAT,CAROL,PAT from 04/10/2023 FINDINGS: EFFUSION: There is a small knee joint effusion. There is no Saravia cyst in the popliteal fossa. MARROW:There is no evidence of fracture, bone contusion, nor osteochondral defects.. There are no si gnificant osseous lesions. PATELLOFEMORAL COMPARTMENT: The quadriceps tendon is intact. The patellar ligament is intact. There is no significant thinning of the retropatellar cartilage. No evidence of fissure nor signific ant chondral defect. No osteochondral defect at this level.There is no intraosseous signal to sugges t recent patellar dislocation. There are no patellar retinacular tears. CRUCIATE LIGAMENTS: The anterior cruciate ligament is intact.The posterior cruciate ligament is intac t. MEDIAL COMPARTMENT/MEDIAL MENISCUS: There are no tears of the medial meniscus evident.. There are no chondral defects, osteochondral defects, subarticular marrow edema, nor osteophytes evid ent. MEDIAL COLLATERAL LIGAMENT: Intact LATERAL COMPARTMENT/LATERAL MENISCUS: There is no evidence of lateral meniscal tear.There are no angelina dral defects, osteochondral defects, subarticular marrow edema, nor osteophytes evident. ILIOTIBIAL BAND: Intact LATERAL COLLATERAL LIGAMENT COMPLEX: The fibular collateral ligament is intact. The biceps femoris t endon is intact.Popliteus muscle and tendon are intact. IMPRESSION: 1. There is a small knee joint effusion (no Saravia cyst) but there is no evidence of significant inter nal derangement. No cruciate nor collateral ligament tears and no meniscal tears evident. 2. No evidence of bone contusion, osteochondral defects, nor significant degenerative changes. DATA REPOSITORY:
== END 2023-05-11 01:04 ==
LOC: DI 00:45
PROVIDERS: PCP Student in an Organized Health Care Education/Training Program; Visit Provider Student in an Organized Health Care Education/Training Program
DX: M25.561 Pain in right knee; S87.80XA Crushing injury of unspecified lower leg, initial encounter; M25.461 Effusion, right knee; X58.XXXA Exposure to other specified factors, initial encounter
CPT/HCPCS: 73721

== ENCOUNTER 2023-05-15 10:20 | Outpatient (CLI) | payer OTHER, SELFPAY ==
--- NOTE | 2023-05-15 10:27 | W.CARDEVENT ---
Date of service: 05/15/23 Time of Service: 10:27 Cardiac Event Recorder Referring Provider:: Keyla Solorzano Indications:: Palpitations Cardiac Event Note: This is a cardiac event monitor ordered for palpitations. Patient was monitored for 12 days and 21 hours Rhythm throughout was sinus. Average heart rate was 94, minimum was 51, maximum 158 There were no supraventricular dysrhythmias, no atrial fibrillation, no SVT There were very rare isolated ventricular ectopic beats, a total of 24 Patient symptoms were reported. These corresponded to sinus rhythm
== END 2023-05-15 10:21 | disposition home or self-care (01) ==
LOC: CARDOPNVT 10:20
PROVIDERS: PCP Student in an Organized Health Care Education/Training Program; Visit Provider Internal Medicine Cardiovascular Disease
DX: R00.2 Palpitations (principal); R00.8 Other abnormalities of heart beat

== ENCOUNTER → 2023-07-12 01:15 | Outpatient (CLI) | payer OTHER, SELFPAY ==
--- NOTE | 2023-07-12 07:00 | DI.CT_ITS ---
Exam(s) CT ABD AORTA CTA W RUNOFF EXAM: CT ABD AORTA CTA W RUNOFF CLINICAL HISTORY: evaluate vascular competency,numbness,tingling,pain and cold ext, h/o crush. TECHNIQUE: Imaging Protocol: Axial CT angiography was performed with multi-slice acquisition and mu lti-planar and/or 3D reconstructions. CONTRAST MATERIAL: Intravenous: Omnipaque 350 Contrast volume:50 ml Contrast route:IV - Oral:/ no COMPARISON: US US SOFT TISSUE EXTREMITY from 04/19/2023 FINDINGS: Vascular Structures: Abdomen: Celiac [place]/SMA: No evidence of stenosis. Renal Arteries: No evidence of stenosis. There is a single renal artery perfusing each kidney. Aorta: No aneurysm. No dissection. Pelvis: Iliac Arteries: No evidence of stenosis. Common Femoral Arteries: No evidence of stenosis. Lower extremities: Right: Common Femoral: No evidence of stenosis. Superficial Femoral: No evidence of stenosis. Popliteal: No evidence of stenosis. Knee Trifurcation: No evidence of stenosis. Posterior Tibial: No evidence of stenosis. Dorsalis Pedis: No evidence of stenosis. Left: Common Femoral: No evidence of stenosis. Superficial Femoral: No evidence of stenosis. Popliteal: No evidence of stenosis. Knee Trifurcation: No evidence of stenosis. Posterior Tibial: No evidence of stenosis. Dorsalis Pedis: No evidence of stenosis. Soft Tissues: No abnormality in the soft tissues. No hematoma or fluid collection. Liver: Normal density. No measurable mass. Gallbladder and biliary tract: No radiodense calculus or dilation. Pancreas: Normal density, no abnormal calcifications or inflammatory process. Spleen: Normal. Kidneys: Normal size, contour and axis. No radiodense stones or obstructive uropathy. No masses seen. Adrenal glands: No masses seen. Aorta: Abdominal portion non-dilated. Bladder: Symmetric distention, no gross wall thickening. Bowel: No obstruction or bowel wall thickening. Peritoneal cavity: No ascites, collection or mesenteric inflammatory response. Bones: Within normal limits. IMPRESSION: Normal CT Angiogram of the Abdomen, Pelvis and Lower Extremities. RADIATION DOSE DELIVERED: 1,132.94mGy.cm Total DLP DATA REPOSITORY: All CT scans at this facility are submitted to the National Radiology Data Registry (NRDR) Dose Index Registry (DIR) with the [employer] (ACR). RADIATION OPTIMIZATION: All CT scans at this facility use at least one of these dose optimization te chniques: automated exposure control; mA and/or kV adjustment per patient size (includes targeted exa ms where dose is matched to clinical indication); or iterative reconstruction.
[2023-07-12] MEDS: Omnipaque 350 MG/ML 100 ML BTL IJ (09:13)
[2023-07-12] MEDS: Normal Saline - Diluent 50 ML VIAL 100 ML IJ (09:13)
[2023-07-12] MEDS: Normal Saline Flush 10 ML SYR IVP (09:14)
== END ==
PROVIDERS: PCP Student in an Organized Health Care Education/Training Program; Visit Provider Student in an Organized Health Care Education/Training Program
DX: M25.561 Pain in right knee (principal); R20.0 Anesthesia of skin; R20.2 Paresthesia of skin; R93.89 Abnormal findings on diagnostic imaging of other specified body structures; S87.81XA Crushing injury of right lower leg, initial encounter; X58.XXXA Exposure to other specified factors, initial encounter
CPT/HCPCS: 75635; J3490

== ENCOUNTER 2023-08-15 12:15 | Outpatient (REF) | payer OTHER, SELFPAY ==
[2023-08-15 16:54] LABS: COVID-19 PCR Negative (Negative); Influenza A PCR Negative (Negative); Influenza B PCR Negative (Negative); RSV PCR Negative (Negative)
[2023-08-15 16:55] LABS: Source NASOPHARYNX
== END 2023-08-15 12:16 | disposition home or self-care (01) ==
LOC: LBN 12:15
PROVIDERS: PCP Student in an Organized Health Care Education/Training Program; Visit Provider Nurse Practitioner
DX: R11.2 Nausea with vomiting, unspecified (principal); R19.7 Diarrhea, unspecified; R10.11 Right upper quadrant pain; R10.32 Left lower quadrant pain; Z20.822 Contact with and (suspected) exposure to COVID-19; R82.79 Other abnormal findings on microbiological examination of urine
CPT/HCPCS: 87637; 87086

== ENCOUNTER → 2023-08-15 13:07 | Outpatient (CLI) | payer OTHER, SELFPAY ==
--- NOTE | 2023-08-15 12:00 | DI.CT_ITS ---
Exam(s) CT ABDOMEN PELVIS W EXAM: CT ABDOMEN PELVIS W CLINICAL HISTORY: RUQ, RLQ pain for 6 days, nausea, R10.31 TECHNIQUE: Imaging Protocol: Axial computed tomography images with coronal and sagittal reformatted images were created and reviewed CONTRAST MATERIAL: Intravenous: Omnipaque 350 Contrast volume:100 mL Oral: Yes COMPARISON: CT CT CTA CHEST W AND/OR WO CONTRAST from 10/31/[address] ABD AORTA CTA W RUNOFF from 07/12/2023 FINDINGS: ABDOMEN: Lung Bases: There is a small ground-glass nodule seen at the 1st image in the medial aspect of the ri ght lung base. Liver: Normal density. No measurable mass. Portal, Superior Mesenteric, and Splenic Veins: Unremarkable. Gallbladder and Biliary Tract: No radiodense calculus or dilation. Pancreas: Normal density, no abnormal calcifications or inflammatory process. Spleen: Normal. Adrenals: No masses seen. Kidneys: Normal size, contour and axis. No radiodense stones or obstructive uropathy. No masses seen. Abdominal Aorta: Abdominal portion non-dilated. Bowel: No obstruction or bowel wall thickening. Appendix is unremarkable. There is a moderate amount of stool throughout the colon suggesting constipation. Peritoneal Cavity: No ascites, collection or mesenteric inflammatory response. No free air. Lymph Nodes: Within normal limits. Bones: Within normal limits for the patient's age. Soft Tissues: Unremarkable. PELVIS: Bladder: Symmetric distention, no gross wall thickening. Reproductive Organs: Unremarkable as visualized. Lymph Nodes: Within normal limits. Bones: Within normal limits for the patient's age. IMPRESSION: 1. No acute abdominal or pelvic process. 2. No evidence of appendicitis. 3. Constipation. RADIATION DOSE DELIVERED: 871.08mGy.cm Total DLP DATA REPOSITORY: All CT scans at this facility are submitted to the National Radiology Data Registry (NRDR) Dose Index Registry (DIR) with the [employer] (ACR). RADIATION OPTIMIZATION: All CT scans at this facility use at least one of these dose optimization te chniques: automated exposure control; mA and/or kV adjustment per patient size (includes targeted exa ms where dose is matched to clinical indication); or iterative reconstruction.
[2023-08-15] MEDS: Barium Sulfate 2% W/V-Berry Smoothie 450 ML BTL PO (12:15)
[2023-08-15] MEDS: Omnipaque 350 MG/ML 500 ML BTL-Imaging package IJ (14:14)
[2023-08-15] MEDS: Normal Saline - Diluent 50 ML VIAL IJ (14:15)
[2023-08-15] MEDS: Normal Saline Flush 10 ML SYR IVP (14:16)
== END ==
PROVIDERS: PCP Student in an Organized Health Care Education/Training Program; Visit Provider Nurse Practitioner
DX: R10.11 Right upper quadrant pain (principal); R10.31 Right lower quadrant pain; R11.0 Nausea
CPT/HCPCS: 74177

== ENCOUNTER 2023-08-18 02:21 | Outpatient (CLI) | payer OTHER, SELFPAY ==
[2023-08-18 16:23] LABS: Abs Immature Grans 0.01 10^3/uL (0.0-0.06); Absolute Basophil Count 0.05 10^3/uL (0.0-0.2); Absolute Monocyte Count 0.83 10^3/uL (0.1-0.8); Absolute Neutrophil Count 5.56 10^3/uL (1.2-6.7); Basophils % 0.5; HCT 43.2 % (36.0-46.0); HGB 14.4 g/dL (11.2-15.7); Immature Grans % 0.1; Lymphocytes % 34.2; MCH 31.2 pg (27.0-33.0); MCHC 33.3 % (32.0-36.0); MCV 94 fL (80-95); MPV 11.8 fL (8.0-11.0); Monocytes % 8.3; Neutrophils % 55.9; Platelet Count 243 10^3/uL (130-400); RBC 4.62 10^6/uL (3.93-5.22); RDW 11.9 % (11.7-14.6); RDW-SD 40.9 fL; WBC 9.95 10^3/uL (4.4-10.8)
[2023-08-18 17:20] LABS: ALT 15 U/L (14-59); AST 12 U/L (15-37); Albumin 3.6 g/dL (3.4-5.0); Alkaline Phosphatase 64 U/L (46-116); Anion Gap 6.3 mmol/L (3-11); BUN 11 mg/dL (7-18); Bilirubin, Total 0.3 mg/dL (0.2-1.0); CO2 28.7 mmol/L (21.0-32.0); CREATININE 0.6 mg/dL (0.55-1.02); Calcium 9.5 mg/dL (8.5-10.1); Chloride 101 mmol/L (98-107); Estimated GFR 126.87 (mL/min/1.73m2); Glucose 86 mg/dL (74-106); Potassium 4.4 mmol/L (3.5-5.1); Sodium 136 mmol/L (136-145); Total Protein 7.2 g/dL (6.4-8.2)
== END 2023-08-18 02:22 | disposition home or self-care (01) ==
LOC: LBO 02:21
PROVIDERS: PCP Student in an Organized Health Care Education/Training Program; Visit Provider Nurse Practitioner
DX: B34.9 Viral infection, unspecified (principal); R82.998 Other abnormal findings in urine
CPT/HCPCS: 36415; 80053; 85025; 87086

== ENCOUNTER 2023-08-24 05:18 | Outpatient (CLI) | payer OTHER, SELFPAY ==
[2023-08-24] MEDS: Inhaler, Assist Device 1 EACH MC (16:47)
[2023-08-24] MEDS: Albuterol HFA 18 GM 200 PUFF INH IH (16:47)
[2023-08-24] MEDS: Methacholine 100 MG VIAL IH (16:47)
--- NOTE | 2023-08-28 14:10 | W.PFT ---
Date of service: 08/24/23 Time of Service: 14:59 Pulmonary Function Test Result Indications: [facility] Interpretation Spirometry: There is no baseline airflow limitation. There was a 35% decrease in FEV1 with administration of 0.5mg/mL methacholine. Impression Positive methacholine challenge. Clinical Correlation therefore is recommended.
== END 2023-08-24 05:19 | disposition home or self-care (01) ==
LOC: RT 05:18
PROVIDERS: PCP Student in an Organized Health Care Education/Training Program; Visit Provider Student in an Organized Health Care Education/Training Program
DX: U09.9 Post COVID-19 condition, unspecified (principal)
CPT/HCPCS: 94060; 94070; J7674

== ENCOUNTER 2023-09-13 19:31 | Outpatient (REF) | payer BC, SELFPAY ==
[2023-09-13 19:35] LABS: Source Nasal/Nares
[2023-09-13 20:28] LABS: COVID-19 PCR POSITIVE (Negative)
== END 2023-09-13 19:32 | disposition home or self-care (01) ==
LOC: LBN 19:31
PROVIDERS: PCP Student in an Organized Health Care Education/Training Program; Visit Provider Nurse Practitioner Adult Health
DX: J45.909 Unspecified asthma, uncomplicated (principal); R05.9 Cough, unspecified; R06.2 Wheezing; Z20.822 Contact with and (suspected) exposure to COVID-19
CPT/HCPCS: 87635

== ENCOUNTER 2023-10-16 17:56 | Outpatient (REF) | payer BC, SELFPAY ==
[2023-10-16 19:50] LABS: Influenza A PCR Negative (Negative); Influenza B PCR Negative (Negative); RSV PCR Negative (Negative)
[2023-10-16 19:53] LABS: COVID-19 PCR Positive (Negative); Source NASOPHARYNX
== END 2023-10-16 17:57 | disposition home or self-care (01) ==
LOC: LBN 17:56
PROVIDERS: PCP Student in an Organized Health Care Education/Training Program; Referring Provider Nurse Practitioner; Visit Provider Nurse Practitioner
DX: R05.8 Other specified cough (principal); J34.89 Other specified disorders of nose and nasal sinuses; Z20.822 Contact with and (suspected) exposure to COVID-19
CPT/HCPCS: 87637

== ENCOUNTER → 2023-10-17 15:11 | Outpatient (CLI) | payer BC, SELFPAY ==
--- NOTE | 2023-10-17 16:03 | DI.RAD_ITS ---
Exam(s) XR CHEST 2V PA LATERAL EXAM: XR CHEST 2V PA LATERAL CLINICAL HISTORY: cough, chest pain R05.9,R07.9 TECHNIQUE: 2D digital imaging was performed. COMPARISON: CT CT CHEST WO from 08/25/2023 FINDINGS: HEART: Normal size. Aorta: Not dilated. PULMONARY VASCULATURE: Normal. LUNGS: Clear. PLEURAL SPACE: No pleural effusion or pneumothorax. BONE:Unremarkable for age. Soft tissues: Unremarkable. IMPRESSION: No acute abnormality. DATA REPOSITORY: RADIATION DOSE DELIVERED:
== END ==
PROVIDERS: PCP Student in an Organized Health Care Education/Training Program; Visit Provider Nurse Practitioner
DX: R05.9 Cough, unspecified (principal); R07.9 Chest pain, unspecified
CPT/HCPCS: 71046

== ENCOUNTER 2023-10-17 16:09 | Inpatient (IN) | payer BC, SELFPAY ==
[2023-10-17] VITALS (61 sets, daily range): BP systolic 95–137; BP diastolic 45–91; PULSE 88–131; RESP 13–30; TEMP 37.3; O2SAT 96–100
--- NOTE | 2023-10-17 16:00 | RT.EKG_ITS ---
APPROVED REPORT Exam: Resting ECG Reason for Exam: chest pain Patient Location: E HR:117 bpm ECG Measurements Heart Rate 117 AXIS [place] 95 P 35 QRSd 70 QRS 37 QT 298 T 54 QTc 416 Conclusion Sinus tachycardia...rate> 99 Narrow complex sinus tachycardia at a rate of 117. Normal axis. Short [place] interval similar to prior. No obvious delta wave. No ST segment abnormalities. No T wave inversions. Compared to prior date d last year sinus tachycardia has replaced normal sinus rhythm.
--- NOTE | 2023-10-17 16:30 | DI.CT_ITS ---
Exam(s) CT CHEST PE CTA EXAM: CT CHEST PE CTA CLINICAL HISTORY: covid-19, chest pain, fhx of severe covid, tachy. TECHNIQUE: Imaging Protocol: Axial CT angiography was performed with multi-slice acquisition and mu lti-planar reconstructions as well as axial, coronal and sagittal MIP reconstructions. CONTRAST MATERIAL: Intravenous: Omnipaque 350 Contrast volume:100 ml COMPARISON: CT CT CHEST WO from 08/25/2023 FINDINGS: Evaluation of the lungs mildly limited by mild motion and dependent changes. Pulmonary Arteries: No evidence of filling defect to suggest pulmonary emboli. Tracheobronchial tree: Patent where visualized. Mediastinum and Karissa: No dominant adenopathy or fluid collection. Pulmonary parenchyma: No consolidation or dominant measurable mass. No infiltrates. Pleura: No effusion or pneumothorax. Heart: The heart is not dilated. No coronary artery calcifications are seen. Aorta: Thoracic aorta non-dilated. No aneurysm. No dissection. Upper abdomen: Unremarkable. Bones: Unremarkable for age. Tubes, Catheters, and Lines: None IMPRESSION: No evidence of pulmonary embolism or other acute abnormality.. RADIATION DOSE DELIVERED: Total DLP DATA REPOSITORY: All CT scans at this facility are submitted to the National Radiology Data Registry (NRDR) Dose Index Registry (DIR) with the [employer] (ACR). RADIATION OPTIMIZATION: All CT scans at this facility use at least one of these dose optimization te chniques: automated exposure control; mA and/or kV adjustment per patient size (includes targeted exa ms where dose is matched to clinical indication); or iterative reconstruction.
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
[2023-10-17 16:48] LABS: Lactate 1.3 mmol/L (0.6-1.4)
[2023-10-17] MEDS: Normal Saline 1,000 ML 1000 ML IV (16:49)
[2023-10-17 16:50] LABS: Abs Immature Grans 0.08 10^3/uL (0.0-0.06); Absolute Basophil Count 0.04 10^3/uL (0.0-0.2); Absolute Eosinophil Count 0.07 10^3/uL (0.0-0.7); Absolute Lymphocyte Count 2.98 10^3/uL (1.2-3.4); Absolute Monocyte Count 1.56 10^3/uL (0.1-0.8); Absolute Neutrophil Count 9.58 10^3/uL (1.2-6.7); Basophils % 0.3; Eosinophils % 0.5; HGB 15.3 g/dL (11.2-15.7); Immature Grans % 0.6; Lymphocytes % 20.8; MCH 30.7 pg (27.0-33.0); MCHC 33.3 % (32.0-36.0); MCV 92 fL (80-95); MPV 11.5 fL (8.0-11.0); Monocytes % 10.9; Neutrophils % 66.9; Platelet Count 252 10^3/uL (130-400); RBC 4.99 10^6/uL (3.93-5.22); RDW 12.3 % (11.7-14.6); RDW-SD 41.8 fL; WBC 14.32 10^3/uL (4.4-10.8)
[2023-10-17] MEDS: ACETAMINOPHEN 1,000 MG/100 ML BTL 400 MG IVPB (16:50)
[2023-10-17] MEDS: Ketorolac 15 MG/ML VIAL IVP (16:51)
[2023-10-17] MEDS: Dexamethasone 10 MG/ML VIAL IVP (16:51)
[2023-10-17 17:00] LABS: Diff Comment Diff Reviewed; RBC Morphology Normal
[2023-10-17 17:09] LABS: ALT 19 U/L (14-59); AST 10 U/L (15-37); Albumin 3.6 g/dL (3.4-5.0); Alkaline Phosphatase 58 U/L (46-116); Anion Gap 7.8 mmol/L (3-11); BUN 8 mg/dL (7-18); Bilirubin, Total 0.6 mg/dL (0.2-1.0); C-Reactive Protein 12.17 mg/dL (0.0-0.3); CO2 26.2 mmol/L (21.0-32.0); CREATININE 0.7 mg/dL (0.55-1.02); Calcium 9.3 mg/dL (8.5-10.1); Chloride 100 mmol/L (98-107); Estimated GFR 122.25 (mL/min/1.73m2); Glucose 105 mg/dL (74-106); LDH 128 U/L (81-234); Potassium 3.6 mmol/L (3.5-5.1); Sodium 134 mmol/L (136-145); Total Protein 7.8 g/dL (6.4-8.2); Troponin I 55 ng/L (<or=60)
[2023-10-17 17:15] LABS: NT-proBNP 87 pg/mL (<300)
--- NOTE | 2023-10-17 17:34 | ED.PROG_ITS ---
Date of service: 10/17/23 Time of Service: 17:34 Medical Decision Making I had initially signed up to evaluate this patient but I did not see her nor participate in her care in emergency department. Discharge Plan Discharge Details Chief Complaint: Chest Pain Primary Care Provider: Keyla Solorzano ED Provider: Diony Yang Home Meds and New Rx's Prescriptions: No Action fexofenadine [Radha Allergy] 180 mg tablet 180 mg PO DAILY Qty: 30 0RF Rx Instructions: Seasonal & environmental allergies during cough illness & Fall ipratropium-albuterol 0.5 mg-3 mg(2.5 mg base)/3 mL solution for nebulization 3 ml inhalation QID PRN (Reason: wheezing/productive moist cough) Qty: 90 0RF Rx Instructions: May use instead of albuterol when moist cough present albuterol sulfate 1.25 mg/3 mL solution for nebulization 1.25 mg inhalation Q8H PRN (Reason: shortness of breath or wheezing) Qty: 90 3RF epinephrine 0.3 mg/0.3 mL auto-injector 0.3 ml subcut Q5-15M PRN (Reason: hypersensitivity reaction) Qty: 2 4RF Rx Instructions: do not exceed 2 doses per episode fluticasone propionate [Allergy Relief (fluticasone)] 50 mcg/actuation spray,suspension 2 spray intranasal DAILY PRN (Reason: allergy symptoms) 90 Days Qty: 48 4RF Rx Instructions: administer into each nostril (DME) Dexcom G7 Sensor Device See Rx Instructions .Route Qty: 3 6RF Rx Instructions: As directed glucagon 3 mg/actuation spray,non-aerosol 3 mg intranasal ONCE Rx Instructions: Reported Rx from [facility] in [place], dose size unknown. albuterol sulfate 90 mcg/actuation HFA aerosol inhaler 2 inh IH Q6H PRN (Reason: shortness of breath or wheezing) Qty: 18 4RF (DME) Continuous Glucose Monitor - SENSOR Dexcom G7 CGM SENSOR See Rx Instructions .Route .MEDSUPPLY Qty: 1 0RF Rx Instructions: As directed glucagon 1 mg/0.2 mL solution 1 mg subcut Q20M MDD 6 doses Qty: 1.2 2RF Rx Instructions: Trial for symptomatic low blood-glucose; Eat; Repeat q20min or go to ED norethindrone ac-eth estradiol [Microgestin 1.5/30 (21)] 1.5-30 mg-mcg tablet See Rx Instructions .ROUTE .COMPLEX Qty: 63 5RF Dose Instruction: TAKE 1 ACTIVE PILL BY MOUTH DAILY, NO WITHDRAWAL BLEED Rx Instructions: TAKE 1 ACTIVE PILL BY MOUTH DAILY, NO WITHDRAWAL BLEED (DME) FreeStyle Test Strip See Rx Instructions .Route Qty: 100 1RF Rx Instructions: DX: E16.1, E74.9 (DME) blood-glucose meter Misc See Rx Instructions .Route Qty: 1 1RF Rx Instructions: Freestyle glucometer DX: E16.1, E74.9, (DME) lancets [FreeStyle Lancets] 28 gauge misc See Rx Instructions .Route Qty: 100 1RF Rx Instructions: DX E74.9, E16.1 fluticasone propion-salmeterol [Advair HFA] 115-21 mcg/actuation HFA aerosol inhaler 2 puff inhalation BID Qty: 12 12RF Gynazole-1 2 % cream 1 appful vaginal ONCE Qty: 5 0RF Hold Instructions: Pt Stopped/Never Started Rx Instructions: Apply to vagina and vulva
[2023-10-17] MEDS: Normal Saline - Diluent 50 ML VIAL IJ (17:40)
[2023-10-17] MEDS: Omnipaque 350 MG/ML 100 ML BTL IJ (17:42)
--- NOTE | 2023-10-17 19:45 | RT.EKG_ITS ---
APPROVED REPORT Exam: Resting ECG Reason for Exam: increasing trop Patient Location: E HR:108 bpm ECG Measurements Heart Rate 108 AXIS SD 113 P 30 QRSd 76 QRS 51 QT 336 T 30 QTc 452 Conclusion Sinus tachycardia...rate> 99 Narrow complex sinus tachycardia at a rate of 108. Normal axis. No ST segment abnormalities. Appea rs similar to prior from earlier this evening. No dynamic changes. No acute injury pattern.
[2023-10-17 19:52] LABS: Troponin I 62 ng/L (<or=60)
[2023-10-17] MEDS: Aspirin 81 MG CHEW 324 MG CH (20:08)
[2023-10-17 22:59] LABS: Troponin I < 50 ng/L (<or=60)
--- NOTE | 2023-10-17 23:05 | NUR.NOTE ---
PT was updated on plan of care. PT will be staying in the ED for this evening. Nursing Note:
--- NOTE | 2023-10-17 23:27 | ED.PROG_ITS ---
Date of service: 10/17/23 Time of Service: 22:30 Medical Decision Making This patient was signed out to me. Please see previous notes for H&P and initial eval. In brief, 28yo F COVID + presenting with intermittent crushing chest pain and tachycardia, troponing uptrending, pending cardiology consult/possible transfer. Patient does have asthma as well as a history of post-prandial hypoglycemia, currently being worked up, has been advised not to drive in the meantime. History of severe COVID both personally and in her family; she was admitted with COVID last October, had an uncle from COVID, mother was also hospitalized with severe illness. After her COVID last year she had persistent tachycardia, 130's-150's, which was reportedly worked up with Holter monitor, stress test, echocardiogram without revealing underlying cause. It then resolved. 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 Tested positive for Covid about one month ago, symptoms initially improved/resolved and then this Monday she began to feel acutely worse, body aches, intermittent crushing chest pain. No fevers. Antigen test positive on Monday. In the ED here today troponin uptrending 52->62, CRP elevated, CBC with leukocytosis, CT negative for PE or pulmonary findings, heart appears normal. EKG has been sinus tachycardia with short NV, no evident ischemic changes. Discussed patient extensively with Dr. Evangelista [facility] cardiology, he advises trending troponin, echocardiogram, and sending ESR. Would not treat as ischemic with heparin/etc; he does believe this patient needs transfer or urgent/emergent intervention. Not overtly concerning for pericarditis. She remains stable here with HR 100's-130's, continues with intermittent pain. Discussed with hospitalist Dr. Robertson, will start 70mg BID lovenox. Boarding in the ED awaiting bed availability. Medical Records Medical records reviewed: Yes I reviewed the patient's medical records. Lab Data Lab results reviewed: Yes I reviewed the patient's lab results. Lab results narrative: Prior clinic notes, ED visit notes, Labs: Laboratory Tests Range/Units 10/17/23 10/17/23 10/17/23 16:43 19:29 22:30 WBC (4.4-10.8) 10^3/uL 14.32 H RBC (3.93-5.22) 10^6/uL 4.99 Hgb (11.2-15.7) g/dL 15.3 Hct (36.0-46.0) % 46.0 MCV (80-95) fL 92 MCH (27.0-33.0) pg 30.7 MCHC (32.0-36.0) % 33.3 RDW (11.7-14.6) % 12.3 Plt Count (130-400) 10^3/uL 252 MPV (8.0-11.0) fL 11.5 H Immature Gran % 0.6 Neutrophils % 66.9 Lymphocytes % 20.8 Monocytes % 10.9 Eosinophils % 0.5 Basophils % 0.3 Nucleated RBC % (0.0-0.3) % 0.0 Absolute Neutrophils (1.2-6.7) 10^3/uL 9.58 H Absolute Lymphocytes (1.2-3.4) 10^3/uL 2.98 Absolute Monocytes (0.1-0.8) 10^3/uL 1.56 H Absolute Eosinophils (0.0-0.7) 10^3/uL 0.07 Absolute Basophils (0.0-0.2) 10^3/uL 0.04 RBC Morphology Normal VBG Lactate (0.6-1.4) mmol/L 1.3 Sodium (136-145) mmol/L 134 L Potassium (3.5-5.1) mmol/L 3.6 Chloride (98-107) mmol/L 100 Carbon Dioxide (21.0-32.0) mmol/L 26.2 Anion Gap (3-11) mmol/L 7.8 BUN (7-18) mg/dL 8 Creatinine (0.55-1.02) mg/dL 0.7 Est GFR (CKD-EPI 2020) (mL/min/1.73m2) 122.25 Glucose (74-106) mg/dL 105 Calcium (8.5-10.1) mg/dL 9.3 Total Bilirubin (0.2-1.0) mg/dL 0.6 AST (15-37) U/L 10 L ALT (14-59) U/L 19 Alkaline Phosphatase (46-116) U/L 58 Lactate Dehydrogenase (81-234) U/L 128 Troponin I (<or=60) ng/L 55 62 H* < 50 C-Reactive Protein (0.0-0.3) mg/dL 12.17 H NT-Pro-B Natriuret Pep (<300) pg/mL 87 Total Protein (6.4-8.2) g/dL 7.8 Albumin (3.4-5.0) g/dL 3.6 Critical Care Time Critical Care Time Critical Care Time: Yes Total Critical Care Time: 32 Attestation: Due to a high probability of clinically significant, life threatening deterioration, the patient required my highest level of preparedness to intervene emergently and I personally spent this critical care time directly and personally managing the patient. This critical care time included obtaining a history; examining the patient; pulse oximetry; ordering and review of studies; arranging urgent treatment with development of a management plan; evaluation of patient's response to treatment; frequent reassessment; and, discussions with other providers. This critical care time was performed to assess and manage the high probability of imminent, life-threatening deterioration that could result in multi-organ failure. It was exclusive of separately billable procedures. Includes discussion with Dr. Evangelista [facility] cardiology, Dr. Robertson [facility] hospitalist, reviewing prior documentation, labs, imaging, and physical exam and discussion with patient. Sign Out Sign Out Data: Sign Out Comment: Myocarditis vs NSTEMI secondary to Covid-19, complex covid history and Fhx of severe covid. Pending [facility] Cards admit/transfer consult. trop 55 >62 > 6hr pending CTA negative for PE, no PNA EKG x2 non-dynamic, no ST changes WBCs 14.3 BNP WNL Lactate neg Last updated by Diony Yang PA at 10/17/23 22:00 Discharge Plan Disposition Patient Disposition: Admit to [facility] Condition: Serious Condition: Stable Discharge Details Chief Complaint: Chest Pain Clinical Impression: COVID, Tachycardia, Chest pain Primary Care Provider: Keyla Solorzano ED Provider: Shania Villanueva Home Meds and New Rx's Prescriptions: No Action fexofenadine [Radha Allergy] 180 mg tablet 180 mg PO DAILY Qty: 30 0RF Rx Instructions: Seasonal & environmental allergies during cough illness & Fall ipratropium-albuterol 0.5 mg-3 mg(2.5 mg base)/3 mL solution for nebulization 3 ml inhalation QID PRN (Reason: wheezing/productive moist cough) Qty: 90 0RF Rx Instructions: May use instead of albuterol when moist cough present albuterol sulfate 1.25 mg/3 mL solution for nebulization 1.25 mg inhalation Q8H PRN (Reason: shortness of breath or wheezing) Qty: 90 3RF epinephrine 0.3 mg/0.3 mL auto-injector 0.3 ml subcut Q5-15M PRN (Reason: hypersensitivity reaction) Qty: 2 4RF Rx Instructions: do not exceed 2 doses per episode fluticasone propionate [Allergy Relief (fluticasone)] 50 mcg/actuation spray,suspension 2 spray intranasal DAILY PRN (Reason: allergy symptoms) 90 Days Qty: 48 4RF Rx Instructions: administer into each nostril (DME) Dexcom G7 Sensor Device See Rx Instructions .Route Qty: 3 6RF Rx Instructions: As directed glucagon 3 mg/actuation spray,non-aerosol 3 mg intranasal ONCE Rx Instructions: Reported Rx from [facility] in [place], dose size unknown. albuterol sulfate 90 mcg/actuation HFA aerosol inhaler 2 inh IH Q6H PRN (Reason: shortness of breath or wheezing) Qty: 18 4RF (DME) Continuous Glucose Monitor - SENSOR Dexcom G7 CGM SENSOR See Rx Instructions .Route .MEDSUPPLY Qty: 1 0RF Rx Instructions: As directed glucagon 1 mg/0.2 mL solution 1 mg subcut Q20M MDD 6 doses Qty: 1.2 2RF Rx Instructions: Trial for symptomatic low blood-glucose; Eat; Repeat q20min or go to ED norethindrone ac-eth estradiol [Microgestin 1.5/30 (21)] 1.5-30 mg-mcg tablet See Rx Instructions .ROUTE .COMPLEX Qty: 63 5RF Dose Instruction: TAKE 1 ACTIVE PILL BY MOUTH DAILY, NO WITHDRAWAL BLEED Rx Instructions: TAKE 1 ACTIVE PILL BY MOUTH DAILY, NO WITHDRAWAL BLEED (DME) FreeStyle Test Strip See Rx Instructions .Route Qty: 100 1RF Rx Instructions: DX: E16.1, E74.9 (DME) blood-glucose meter Misc See Rx Instructions .Route Qty: 1 1RF Rx Instructions: Freestyle glucometer DX: E16.1, E74.9, (DME) lancets [FreeStyle Lancets] 28 gauge misc See Rx Instructions .Route Qty: 100 1RF Rx Instructions: DX E74.9, E16.1 fluticasone propion-salmeterol [Advair HFA] 115-21 mcg/actuation HFA aerosol inhaler 2 puff inhalation BID Qty: 12 12RF Gynazole-1 2 % cream 1 appful vaginal ONCE Qty: 5 0RF Hold Instructions: Pt Stopped/Never Started Rx Instructions: Apply to vagina and vulva
[2023-10-17] MEDS: Enoxaparin 80 MG/0.8 ML SYR 70 MG SC (23:50)
[2023-10-18] VITALS (80 sets, daily range): BP systolic 89–117; BP diastolic 41–94; PULSE 57–109; RESP 12–38; TEMP 36.8–36.9; O2SAT 93–100
[2023-10-18 00:33] LABS: *AMPHETAMINES SCREEN URINE Negative (Negative); *BARBITURATES SCREEN URINE Negative (Negative); *BENZODIAZEPINES SCREEN URINE Negative (Negative); Cannabinoids THC Negative (Negative); Cocaine Screen,Urine Negative (Negative); METHADONE URINE SCREEN Negative (Negative); OPIATES URINE SCREEN Negative (Negative)
[2023-10-18 00:40] LABS: Tricyclic Antidepressants Negative (Negative)
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
[2023-10-18] MEDS: Normal Saline 1,000 ML 125 ML IV ×2 (05:00→12:39)
[2023-10-18] MEDS: Ketorolac 15 MG/ML VIAL IVP (05:24)
[2023-10-18 05:34] LABS: HCT 45.7 % (36.0-46.0); HGB 15.1 g/dL (11.2-15.7); MCH 30.5 pg (27.0-33.0); MCV 92 fL (80-95); MPV 11.6 fL (8.0-11.0); Platelet Count 249 10^3/uL (130-400); RBC 4.95 10^6/uL (3.93-5.22); RDW-SD 41.2 fL; WBC 8.69 10^3/uL (4.4-10.8)
[2023-10-18 05:38] LABS: ESR 20 mm/hr (0-20)
[2023-10-18 06:14] LABS: ALT 18 U/L (14-59); AST 9 U/L (15-37); Albumin 3.1 g/dL (3.4-5.0); Alkaline Phosphatase 54 U/L (46-116); Anion Gap 11.7 mmol/L (3-11); BUN 9 mg/dL (7-18); Bilirubin, Total 0.4 mg/dL (0.2-1.0); CO2 23.3 mmol/L (21.0-32.0); CREATININE 0.6 mg/dL (0.55-1.02); Calcium 8.9 mg/dL (8.5-10.1); Chloride 104 mmol/L (98-107); Estimated GFR 126.87 (mL/min/1.73m2); Glucose 135 mg/dL (74-106); Magnesium 2.3 mg/dL (1.8-2.4); Potassium 3.9 mmol/L (3.5-5.1); Sodium 139 mmol/L (136-145); Total Protein 7.2 g/dL (6.4-8.2)
[2023-10-18 06:22] LABS: Prothrombin Time 10.4 sec (9.1-11.1)
[2023-10-18 06:38] LABS: FREE T4 1.17 ng/dL (0.76-1.46)
[2023-10-18] MEDS: Heparin 5,000 UNITS/ML VIAL 5000 UNITS SC ×2 (07:37→16:18)
[2023-10-18 07:52] LABS: Bilirubin Negative (Negative); Blood Moderate (Negative); Clarity Sl Cloudy (Clear); Glucose 500 mg/dL (Negative); Ketones 15 mg/dL (Negative); Leukocyte Esterase Trace (Negative); Nitrite Negative (Negative); Specific Gravity 1.025 (1.005-1.025)
[2023-10-18 07:59] LABS: Bacteria Few HPF (Negative); C & S Indicated? No/Sq. Contamination; Casts 0-2 Hyaline LPF (Negative); Crystals Negative HPF (Negative); Epithelial Cells Many HPF (Negative); Mucus Negative (Negative); RBC 20-50 HPF (0-2); WBC 0-2 HPF (0-5)
[2023-10-18 08:22] LABS: Lab Add On Test DONE
[2023-10-18 08:40] LABS: C-Reactive Protein 13.72 mg/dL (0.0-0.3)
--- NOTE | 2023-10-18 13:48 | NUR.NOTE ---
Nursing Note: Pt c/o cramping pain to left upper chest, denies any SOB. On assessment, pt states the pain worsens on palpation. Director Stars notified.
[2023-10-18] MEDS: Levalbuterol HFA 15 GM INH 2 PUFF IH (16:17)
[2023-10-18] MEDS: REMDESIVIR 200 MG in Normal Saline 250 ML 250 MG IVPB (16:18)
[2023-10-18] MEDS: Ipratropium/Albuterol 4 GM 120 PUFF INH IH ×2 (17:17→20:14)
--- NOTE | 2023-10-18 17:34 | RESPIRATORY ---
RT Assessment Start: 10/18/23 17:01 Freq: .q shift and prn Status: Active Protocol: Document 10/18/23 17:20 [email or web address] (Rec: 10/18/23 17:33 [email or web address] [id number]) RT Assessment Pulmonary History Pulmonary History Asthma Smoking History Smoking/Tobacco Use Status Never OXYGEN HISTORY: CPAP Can use home machine No BIPAP Can you home machine No Trilogy/AVAPS Can use home machine No Current Respiratory Symptoms Current Respiratory Symptoms Chest Pain,Cough,Shortness of breath,Sputum production Activity Activity Level Pt. states very active. Respiratory Breath Sounds Breath Sounds Any abnormal sounds, decreased breath sounds Response No change Pulse Rate >100 Respiratory Rate <18 Shortness of Breath At rest Respiratory Therapy Score Total 4 Assessment and Plan RT Treatment Protocol Bronchodilator Aerosol Therapy Protocol,Lung Expansion Therapy Protocol,Bronchial Hygiene Therapy Protocol Note BRONCHODILATOR AEROSOL THERAPY : Continue home regimen. LUNG EXPANSION THERAPY: Q1-2 IS and Deep Cough breathing/ cough. BRONCHIAL HYGIENCE THERAPY: Acapella Q4.
--- NOTE | 2023-10-18 19:38 | PGE_ITS ---
Date of Service Date of service: 10/18/23 Time of Service: 19:38 Subjective Subjective Interval history since last seen: The patient was seen twice today, and both times her mother was on speaker phone and her fiance was visiting. Ms Cheatham reports a dry cough, chest heaviness and tightness, some shortness of breath, nausea which she thinks is from coughing. She just wants to sleep. She has had symptoms of COVID again since Monday and tested positive for it in her doctor's office. Her chest pain woke her up overnight/chemical pumper on Monday and felt crushing. This CP was relieved with toradol and is now gone, though the heaviness and tightness remain. She has had no arrhythmic events on telemetry and has been in sinus tachycardia 90s-110s. Per patient, this is somewhat chronic for her since her original bout of COVID-19. I discussed with her and her mother that COVID-19 is known to cause autonomic dysfunction and that palpitations are a very common complaint of long COVID. 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 She has not had further follow-up with cardiology. The patient and her mother are concerned about a strong family history of CAD in the family - specifically on her mother's side. Her mother has it and had an TN in her 60s. It sounds like her maternal grandfather also had an TN in his 60s, but his brother and other relatives on this side did have MIs in the 40s. There was also another family member, though not related by blood, who of COVID, so the patient admits to having a lot of anxiety about this. The mother was hoping that the patient be transferred to [facility] for a cardiac workup. After speaking with [facility] cardiology myself today to review the case (a very minimal elevation in the high sensitivity troponin I was felt to be due to demand ischemia of the tachycardia and COVID itself), I explained to both Ms Pritchett and her mother that there was no medical indication for transfer. We went over the results of the echocardiogram. While the mother asked me to promise her that there would not be further damage to Shira's heart, I naturally could not do that, but I did assure that there was no evidence of damage now. I did explain that if the transfer to [facility] was still wished to be pursued then it would be on the patient/her family to find an accepting doctor. I did also discuss treatment of COVID that we could offer here, since I do feel that Ms Cheatham is of high risk for developing complications from COVID due to her h/o asthma, BMI, and symptomatic long COVID from prior infection. The patient is allergic to lactose, and paxlovid contains lactose. She is willing to try remdesivir. She has previously tolerated symbicort and albuterol. I did discuss the use of levalbuterol instead and tried prescribing mometasone in place of symbicort, but unfortunately mometasone also has lactose and symbicort does not. At this point, the patient and I ageed on management of COVID with inhalers, antitussives, antiemetics. She appears comfortable with this treatment plan and states she would just like to sleep tonight. I did prescribe her deuce tonin and guaifenesin AC to hopefully help with that tonight. I have answered all questions asked of me at the time of my two visits and have reassured the patient that she is not having an acute heart attack. Objective Last Vital Signs Temp 36.9 C 10/18/23 19:30 Pulse 93 H 10/18/23 19:30 Resp 20 10/18/23 19:30 BP 114/77 10/18/23 19:30 Pulse Ox 99 10/18/23 19:30 Laboratory Results - last 24 hr 10/17/23 10/17/23 10/18/23 19:29 22:30 00:16 WBC RBC Hgb Hct MCV MCH MCHC RDW Plt Count MPV ESR PT INR Sodium Potassium Chloride Carbon Dioxide Anion Gap BUN Creatinine Est GFR (CKD-EPI 2020) Glucose Calcium Magnesium Total Bilirubin AST ALT Alkaline Phosphatase Troponin I 62 H* < 50 C-Reactive Protein Total Protein Albumin TSH Free T4 Urine Color Urine Clarity Urine pH Ur Specific Higdon Urine Protein Urine Ketones Urine Blood Urine Nitrite Urine Bilirubin Urine Urobilinogen Ur Leukocyte Esterase Urine RBC Urine WBC Ur Epithelial Cells Urine Crystals Urine Bacteria Urine Casts Urine Mucus Ur Culture Indicated? Urine Glucose Urine Opiates Screen Negative Urine Methadone Screen Negative Ur Barbiturates Screen Negative Ur Tricyclics Screen Negative Ur Amphetamines Screen Negative U Benzodiazepines Scrn Negative Urine Cocaine Screen Negative Ur THC Screen Negative Add-On Test Request 10/18/23 10/18/23 10/18/23 05:30 05:35 05:45 WBC 8.69 RBC 4.95 Hgb 15.1 Hct 45.7 MCV 92 MCH 30.5 MCHC 33.0 RDW 12.0 Plt Count 249 MPV 11.6 H ESR 20 PT 10.4 INR 1.0 Sodium 139 Potassium 3.9 Chloride 104 Carbon Dioxide 23.3 Anion Gap 11.7 H BUN 9 Creatinine 0.6 Est GFR (CKD-EPI 2020) 126.87 Glucose 135 H Calcium 8.9 Magnesium 2.3 Total Bilirubin 0.4 AST 9 L ALT 18 Alkaline Phosphatase 54 Troponin I C-Reactive Protein 13.72 H Total Protein 7.2 Albumin 3.1 L TSH 0.20 L Free T4 1.17 Urine Color Urine Clarity Urine pH Ur Specific Higdon Urine Protein Urine Ketones Urine Blood Urine Nitrite Urine Bilirubin Urine Urobilinogen Ur Leukocyte Esterase Urine RBC Urine WBC Ur Epithelial Cells Urine Crystals Urine Bacteria Urine Casts Urine Mucus Ur Culture Indicated? Urine Glucose Urine Opiates Screen Urine Methadone Screen Ur Barbiturates Screen Ur Tricyclics Screen Ur Amphetamines Screen U Benzodiazepines Scrn Urine Cocaine Screen Ur THC Screen Add-On Test Request DONE 10/18/23 07:40 WBC RBC Hgb Hct MCV MCH MCHC RDW Plt Count MPV ESR PT INR Sodium Potassium Chloride Carbon Dioxide Anion Gap BUN Creatinine Est GFR (CKD-EPI 2020) Glucose Calcium Magnesium Total Bilirubin AST ALT Alkaline Phosphatase Troponin I C-Reactive Protein Total Protein Albumin TSH Free T4 Urine Color Yellow Urine Clarity Sl Cloudy Urine pH 7.0 Ur Specific Higdon 1.025 Urine Protein 30 H Urine Ketones 15 H Urine Blood Moderate H Urine Nitrite Negative Urine Bilirubin Negative Urine Urobilinogen 1.0 H Ur Leukocyte Esterase Trace H Urine RBC 20-50 H Urine WBC 0-2 Ur Epithelial Cells Many Urine Crystals Negative Urine Bacteria Few Urine Casts 0-2 Hyaline Urine Mucus Negative Ur Culture Indicated? No/Sq. Contamination Urine Glucose 500 H Urine Opiates Screen Urine Methadone Screen Ur Barbiturates Screen Ur Tricyclics Screen Ur Amphetamines Screen U Benzodiazepines Scrn Urine Cocaine Screen Ur THC Screen Add-On Test Request Time Spent with Patient Time Spent with Patient: >50 minutes Time was spent: preparing to see the patient(eg.review tests), obtaining and/or reviewing separately [facility], ordering medications,tests, procedures, referring, communicating with other health care management specialist, indepentently interpreting results, counseling the patient and care coordination
[2023-10-18] MEDS: Budesonide/Formoterol 160/4.5 6 GM 60 PUFF INH IH (20:13)
[2023-10-18] MEDS: Benzonatate 200 MG CAP PO (21:08)
[2023-10-19] VITALS (7 sets, daily range): BP systolic 104–117; BP diastolic 68–81; PULSE 82–99; RESP 16–24; TEMP 36.4–37.2; O2SAT 18–99
[2023-10-19] MEDS: Heparin 5,000 UNITS/ML VIAL 5000 UNITS SC ×2 (00:25→08:29)
[2023-10-19 07:20] LABS: Abs Immature Grans 0.08 10^3/uL (0.0-0.06); HCT 39.5 % (36.0-46.0); HGB 12.9 g/dL (11.2-15.7); MCH 30.7 pg (27.0-33.0); MCHC 32.7 % (32.0-36.0); MCV 94 fL (80-95); MPV 12.3 fL (8.0-11.0); Platelet Count 211 10^3/uL (130-400); RDW 12.4 % (11.7-14.6); RDW-SD 43.6 fL; WBC 12.17 10^3/uL (4.4-10.8)
[2023-10-19 07:34] LABS: Prothrombin Time 9.7 sec (9.1-11.1)
[2023-10-19 07:37] LABS: Absolute Neutrophil Count 6.09 10^3/uL (1.2-6.7)
[2023-10-19 07:50] LABS: ALT 14 U/L (14-59); AST 10 U/L (15-37); Albumin 2.7 g/dL (3.4-5.0); Alkaline Phosphatase 41 U/L (46-116); Anion Gap 6.9 mmol/L (3-11); BUN 11 mg/dL (7-18); Bilirubin, Direct 0.1 mg/dL (0.0-0.2); Bilirubin, Total 0.2 mg/dL (0.2-1.0); CO2 26.1 mmol/L (21.0-32.0); CREATININE 0.8 mg/dL (0.55-1.02); Calcium 8.7 mg/dL (8.5-10.1); Chloride 108 mmol/L (98-107); Estimated GFR 104.15 (mL/min/1.73m2); Glucose 86 mg/dL (74-106); Magnesium 2.2 mg/dL (1.8-2.4); Potassium 3.7 mmol/L (3.5-5.1); Sodium 141 mmol/L (136-145); TSH 1.09 uIU/mL (0.36-3.74); Total Protein 6.3 g/dL (6.4-8.2)
[2023-10-19 08:02] LABS: Vitamin D 25 Total 47.1 ng/mL (30-100)
[2023-10-19 08:19] LABS: D-Dimer 141 ng/mlFEU (<500)
[2023-10-19] MEDS: Benzonatate 200 MG CAP PO ×3 (08:30→19:40)
[2023-10-19] MEDS: Ascorbic Acid 500 MG TAB 1000 MG PO (08:30)
[2023-10-19] MEDS: Zinc Sulfate 220 MG TAB PO (08:31)
[2023-10-19] MEDS: Ipratropium/Albuterol 4 GM 120 PUFF INH IH ×2 (08:53→13:28)
[2023-10-19] MEDS: Budesonide/Formoterol 160/4.5 6 GM 60 PUFF INH IH ×2 (08:53→20:37)
[2023-10-19 08:57] LABS: Procalcitonin < 0.1 ng/mL
[2023-10-19 09:07] LABS: Absolute Basophil Count 0.12 10^3/uL (0.0-0.2); Absolute Eosinophil Count 0.12 10^3/uL (0.0-0.7); Absolute Lymphocyte Count 4.62 10^3/uL (1.2-3.4); Absolute Monocyte Count 1.22 10^3/uL (0.1-0.8); Atypical Lymphocytes % 2; Diff Comment Manual Differential; RBC Morphology Normal
--- NOTE | 2023-10-19 09:15 | RT.EKG_ITS ---
APPROVED REPORT Exam: Resting ECG Reason for Exam: chest heaviness Patient Location: I HR:87 bpm ECG Measurements Heart Rate 87 AXIS ME 101 P 44 QRSd 102 QRS 60 QT 354 T -73 QTc 426 Conclusion Sinus rhythm...normal P axis, V-rate 50- 99 Short ME interval...ME <110mS Borderline T abnormalities, diffuse leads...T flat/neg
--- NOTE | 2023-10-19 09:36 | NUR.NOTE ---
Nursing Note: Pt c/o chest tightness this am, denies pain, states that her chest feels tight and heavy, like there's something on it. Clinical Coordinator notified.
--- NOTE | 2023-10-19 14:57 | W.PM.PROGNOT ---
Date of Service Date of service: 10/19/23 Time of Service: 14:57 Assessment and Plan Assessment and plan (1) Atypical chest pain: Status: Acute Assessment and plan: CTA and echo did not show any myocardial structural abnormalities and no PE or pulmonary consolidations. I think her CP is related to asthma exacerbation and tachycardia (2) Sinus tachycardia: Status: Acute Assessment and plan: she apparently has had problems w/ tachycardia since her COVID was first diagnosed but probably exacerbate by her asthma. I think that treating the underlying COVID and her asthma and her tachycardia will improve. (3) COVID-19: Status: Acute Assessment and plan: Unclear as to whether or not this is a new infection or continuation of an infection from August. During that period she says that she was treated for pneumonia and also a sinus infection so she really has not had a period of getting back to her baseline respiratory function. Per RT she failed her PFT miserably. 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 She has had problems since her first infection with what appears to be autoimmune processes including recurrent hypoglycemia with hyperglycemia and weight gain of 25 pounds. She is followed closely by her PCP. (5) Hypoglycemia without diagnosis of diabetes mellitus: Status: Chronic Assessment and plan: Diabetic diet with monitor glucometers before meals and at bedtime while hospitalized. No coverage for now. (6) Moderate persistent chronic asthma without complication: Status: Chronic Assessment and plan: I believe she is having exacerbation of her asthma w/ her current COVID, I will initiate dexamethasone tonight then switch to oral corticosteroid that does not have any dairy products. She says that had just finished liquid prednisolone with her recent sinus infection. She has no evidence of acute bacterial infection. Subjective Subjective Interval history since last seen: Patient w/ increased dyspnea, cough and tachycardia (up to 130's) w/ any activity of ADL (washing her hair). Patient has had persistent asthma w/ exacerbations couple times per month. She had been scheduled to see Dr. Jules for pulmonary consultation in August but had to cancel d/t COVID. It sounds to me that she never really got back to her baseline function after COVID and now was admitted symptoms of chest pain, palpitations and was found to be tachycardic w/ minimally elevated troponin I levels w/ out ischemic EKG changes. She was found to have positive PCR for COVID19 as outpatient on Tuesday 10/16 (but negative for RSV and influenza). She has been fully immunized for COVID and had her influenza vaccine in July but not had the RSV immunization yet. She was admitted yesterday and put on Remdesivir (Paxlovid was not used d/t her severe dairy allergy). She was worked up for her CP w/ CTA that did not show any pneumonic consolidations nor any P.E. and no ground glass changes. Echo was performed yesterday and showed normal LV and RV function w/ no valvular abnormalities. Telemetry overnight has shown her rhythm to be SR w/ intermittent sinus tachycardia w/ activity such as toileting or washing her hair. This afternoon while washing her hair she became dyspneic and had chest pains along w/ tachycardia. Exam Narrative Exam Narrative: Young white female sitting up on her bed, able to speak in complete sentences w/out breathlessness although has intermittent nonproductive cough Lungs: faint end expiratory wheezes bilaterally w/ forceful exhalation, no rhonchi Heart: regular to slight tachycardia no murmur or rub Objective Last Vital Signs Temp 36.9 C 10/19/23 12:00 Pulse 90 10/19/23 12:00 Resp 18 10/19/23 12:00 BP 117/79 10/19/23 12:00 Pulse Ox 18 L 10/19/23 12:00 Laboratory Results - last 24 hr 10/19/23 06:20 WBC 12.17 H RBC 4.20 Hgb 12.9 D Hct 39.5 MCV 94 MCH 30.7 MCHC 32.7 RDW 12.4 Plt Count 211 MPV 12.3 H Immature Gran % See Differential Neutrophils % 50.0 Lymphocytes % 36.0 Atypical Lymphs % 2 Monocytes % 10.0 Eosinophils % 1.0 Basophils % 1.0 Nucleated RBC % 0.0 Absolute Neutrophils 6.09 Absolute Lymphocytes 4.62 H Absolute Monocytes 1.22 H Absolute Eosinophils 0.12 Absolute Basophils 0.12 RBC Morphology Normal PT 9.7 INR 1.0 D-Dimer 141 Sodium 141 Potassium 3.7 Chloride 108 H Carbon Dioxide 26.1 Anion Gap 6.9 BUN 11 Creatinine 0.8 Est GFR (CKD-EPI 2020) 104.15 Glucose 86 Calcium 8.7 Magnesium 2.2 Total Bilirubin 0.2 Conjugated Bilirubin 0.1 AST 10 L ALT 14 Alkaline Phosphatase 41 L Total Protein 6.3 L Albumin 2.7 L 25-OH Vitamin D Total 47.1 Procalcitonin < 0.1 TSH 1.09 Time Spent with Patient Time Spent with Patient: 35-49 minutes Time was spent: preparing to see the patient(eg.review tests), ordering medications,tests, procedures, referring, communicating with other health vocational childcare teacher, indepentently interpreting results, counseling the patient and care coordination
[2023-10-19] MEDS: Enoxaparin 80 MG/0.8 ML SYR 70 MG SC (15:39)
[2023-10-19] MEDS: Dexamethasone 10 MG/ML VIAL IVP (15:39)
[2023-10-19] MEDS: Levalbuterol HFA 15 GM INH 2 PUFF IH ×2 (17:55→22:37)
[2023-10-20 00:47] VITALS: BP 107/69; PULSE 75; RESP 16; TEMP 35.8; O2SAT 99
[2023-10-20 07:17] LABS: Abs Immature Grans 0.09 10^3/uL (0.0-0.06); Absolute Basophil Count 0.02 10^3/uL (0.0-0.2); Absolute Monocyte Count 0.49 10^3/uL (0.1-0.8); Absolute Neutrophil Count 10.12 10^3/uL (1.2-6.7); Basophils % 0.2; HCT 44.5 % (36.0-46.0); HGB 14.7 g/dL (11.2-15.7); Immature Grans % 0.7; Lymphocytes % 12.3; MCH 30.6 pg (27.0-33.0); MCV 93 fL (80-95); MPV 12.1 fL (8.0-11.0); Neutrophils % 82.8; Platelet Count 271 10^3/uL (130-400); RDW-SD 41.9 fL; WBC 12.22 10^3/uL (4.4-10.8)
[2023-10-20 07:42] LABS: ALT 16 U/L (14-59); AST 10 U/L (15-37); Albumin 3.3 g/dL (3.4-5.0); Alkaline Phosphatase 48 U/L (46-116); Anion Gap 11.3 mmol/L (3-11); BUN 15 mg/dL (7-18); Bilirubin, Total 0.3 mg/dL (0.2-1.0); C-Reactive Protein 3.82 mg/dL (0.0-0.3); CO2 22.7 mmol/L (21.0-32.0); CREATININE 0.8 mg/dL (0.55-1.02); Calcium 9.6 mg/dL (8.5-10.1); Chloride 102 mmol/L (98-107); Estimated GFR 104.15 (mL/min/1.73m2); Glucose 123 mg/dL (74-106); LDH 126 U/L (81-234); Potassium 3.8 mmol/L (3.5-5.1); Sodium 136 mmol/L (136-145); Total Protein 7.5 g/dL (6.4-8.2)
[2023-10-20 07:54] LABS: D-Dimer 133 ng/mlFEU (<500)
[2023-10-20 08:06] VITALS: BP 113/68; PULSE 90; RESP 18; TEMP 36.9; O2SAT 99
[2023-10-20 08:15] LABS: Ferritin 174 ng/mL (8-252)
[2023-10-20] MEDS: Zinc Sulfate 220 MG TAB PO (08:18)
[2023-10-20] MEDS: Ascorbic Acid 500 MG TAB 1000 MG PO (08:18)
[2023-10-20] MEDS: Benzonatate 200 MG CAP PO ×3 (08:18→20:40)
[2023-10-20] MEDS: Levalbuterol HFA 15 GM INH 2 PUFF IH ×4 (08:25→20:40)
[2023-10-20] MEDS: Budesonide/Formoterol 160/4.5 6 GM 60 PUFF INH IH ×2 (08:26→20:40)
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
[2023-10-20 11:15] LABS: Lab Add On Test DONE
[2023-10-20 11:30] VITALS: BP 123/76; PULSE 85; RESP 12; TEMP 36.7; O2SAT 100
[2023-10-20 11:52] LABS: Procalcitonin < 0.1 ng/mL
[2023-10-20] MEDS: prednisoLONE SOD PHOS. Soln. 3 MG/ML 40 MG PO (12:00)
--- NOTE | 2023-10-20 15:19 | PGE_ITS ---
Date of Service Date of service: 10/20/23 Time of Service: 15:19 Assessment and Plan Assessment and plan (1) COVID-19: Status: Acute Assessment and plan: continue Molnupiravir, steroids, workup sinus tachycardia and near syncope; i.e. TFT have been checked, therefore ruling out hyperhyroidism, check 24 hour urine metanephrines to rule out pheochromocytoma; trial of midodrine and TEDS to see if her orthostatic symptoms improve. consider metoprolol but in light of frequent asthma exacerbations, relatively contraindicate, can try other medications empirically for POTS Professional time spent interviewing and examining patient, discussion of goals of care with hospital team (care management, nursing and consulting professionals) was 30 minutes. (2) POTS (postural orthostatic tachycardia syndrome): Status: Suspected Assessment and plan: as above; rule out other causes but suspect she has some form of autonomic dysfunction from her COVID, unfortunately her current asthma exacerbation precludes the initiation of a beta-anshul. I have ordered midodrine 5 mg 3 times daily along with thigh-high FELIX hose. If this is not working I will consider adding addition of fludrocortisone, or pyridostigmine, or ivabradine if the above fail. (3) Sinus tachycardia: Status: Acute Assessment and plan: as above (4) Atypical chest pain: Status: Acute Assessment and plan: normal echo and negative CTA chest for PE. 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 She has had problems since her first infection with what appears to be autoimmune processes including recurrent hypoglycemia with hyperglycemia and weight gain of 25 pounds and pos tural hypotension and resting tachycardia. She is followed closely by her PCP. (7) Hypoglycemia without diagnosis of diabetes mellitus: Status: Chronic Assessment and plan: Diabetic diet with monitor glucometers before meals and at bedtime while hospitalized. No coverage for now. Subjective Subjective Interval history since last seen: Shira is still having problems with resting tachycardia that worsens with activity and has been associated with near syncopal spells. In light of her COVID infection I think she is suffering from POTS syndrome. Unfortunately she is also having an asthma exacerbation which makes initiation of a beta-anshul contraindication. Nevertheless I will start her on midodrine and FELIX hose and see if we can improve her orthostasis. If this is not working and may need to add some fludrocortisone. She would like a cardiology consultation unfortunately Dr. Cortez is away today and will not be back until Monday. She states that earlier today when she was up to the bathroom she nearly passed out and if her fianc? had not been there to catch her she probably would have gone down. I explained to her I like her to monitor her blood pressure when she gets out of bed and have asked nursing to assist with showing her how to put a blood pressure cuff on and initiating a automated blood pressure measurement before getting out of bed and right after getting out of bed. Patient does feel that her breathing is a little better since I initiated steroids yesterday with Decadron and now today we have put her on prednisolone. Exam Narrative Exam Narrative: Pleasant young white female sitting up in bed talking with her boyfriend appears to be in no acute respiratory distress she is alert and oriented person place time circumstance Lungs are clear with quiet respirations and just a faint end expiratory wheeze with forceful exhalation Hearts regular but tachycardic Extremities without edema Objective Last Vital Signs Temp 36.7 C 10/20/23 11:30 Pulse 85 10/20/23 11:30 Resp 12 10/20/23 11:30 BP 123/76 10/20/23 11:30 Pulse Ox 100 10/20/23 11:30 Laboratory Results - last 24 hr 10/20/23 10/20/23 10/20/23 06:10 06:10 06:10 WBC 12.22 H RBC 4.80 Hgb 14.7 Hct 44.5 MCV 93 MCH 30.6 MCHC 33.0 RDW 12.0 Plt Count 271 MPV 12.1 H Immature Gran % 0.7 Neutrophils % 82.8 Lymphocytes % 12.3 Monocytes % 4.0 Eosinophils % 0.0 Basophils % 0.2 Nucleated RBC % 0.0 Absolute Neutrophils 10.12 H Absolute Lymphocytes 1.50 Absolute Monocytes 0.49 Absolute Eosinophils 0.00 Absolute Basophils 0.02 D-Dimer 133 Sodium 136 Potassium 3.8 Chloride 102 Carbon Dioxide 22.7 Anion Gap 11.3 H BUN 15 Creatinine 0.8 Est GFR (CKD-EPI 2020) 104.15 Glucose 123 H Calcium 9.6 Ferritin Cancelled 174 Total Bilirubin 0.3 AST 10 L ALT 16 Alkaline Phosphatase 48 Lactate Dehydrogenase Cancelled 126 C-Reactive Protein Cancelled Total Protein Albumin Procalcitonin Add-On Test Request 10/20/23 06:10 WBC RBC Hgb Hct MCV MCH MCHC RDW Plt Count MPV Immature Gran % Neutrophils % Lymphocytes % Monocytes % Eosinophils % Basophils % Nucleated RBC % Absolute Neutrophils Absolute Lymphocytes Absolute Monocytes Absolute Eosinophils Absolute Basophils D-Dimer Sodium Potassium Chloride Carbon Dioxide Anion Gap BUN Creatinine Est GFR (CKD-EPI 2020) Glucose Calcium Ferritin Total Bilirubin AST ALT Alkaline Phosphatase Lactate Dehydrogenase C-Reactive Protein 3.82 H Total Protein 7.5 Albumin 3.3 L Procalcitonin < 0.1 Add-On Test Request DONE Time Spent with Patient Time Spent with Patient: 35-49 minutes Time was spent: preparing to see the patient(eg.review tests), referring, communicating with other health animal care supervisor, indepentently interpreting results, counseling the patient and care coordination
[2023-10-20 15:36] VITALS: BP 116/75; BP 124/77; BP 127/80; PULSE 86; PULSE 88; PULSE 95; RESP 16; TEMP 37; O2SAT 92
[2023-10-20] MEDS: Enoxaparin 40 MG/0.4 ML SYR SC (15:55)
[2023-10-20] MEDS: Midodrine 2.5 MG TAB 5 MG PO (20:40)
[2023-10-20 21:22] VITALS: BP 121/78; PULSE 75; RESP 22; TEMP 37.1; O2SAT 98
[2023-10-20] MEDS: Ondansetron 4 MG/2 ML VIAL IVP (21:24)
[2023-10-21 04:08] VITALS: BP 107/64; BP 110/65; BP 111/73; PULSE 65; PULSE 70; PULSE 77; RESP 18; TEMP 36.3; O2SAT 100
[2023-10-21 07:44] LABS: Iron 131 ug/dL (50-170); Total Iron Binding Capacity 331 ug/dL (250-450); Transferrin Sat 40 % (15-50)
[2023-10-21 07:47] LABS: ALT 45 U/L (14-59); AST 47 U/L (15-37); Alkaline Phosphatase 49 U/L (46-116); Anion Gap 7.1 mmol/L (3-11); BUN 15 mg/dL (7-18); Bilirubin, Total 0.3 mg/dL (0.2-1.0); CO2 25.9 mmol/L (21.0-32.0); CREATININE 0.7 mg/dL (0.55-1.02); Chloride 104 mmol/L (98-107); Estimated GFR 122.25 (mL/min/1.73m2); Glucose 88 mg/dL (74-106); LDH 139 U/L (81-234); Potassium 3.9 mmol/L (3.5-5.1); Sodium 137 mmol/L (136-145); Total Protein 6.8 g/dL (6.4-8.2)
[2023-10-21 07:48] LABS: D-Dimer 200 ng/mlFEU (<500)
[2023-10-21 08:21] VITALS: BP 103/67; PULSE 89; RESP 20; TEMP 37; O2SAT 100
[2023-10-21 08:29] LABS: Ferritin 185 ng/mL (8-252)
[2023-10-21] MEDS: Levalbuterol HFA 15 GM INH 2 PUFF IH ×3 (09:00→16:27)
[2023-10-21] MEDS: Budesonide/Formoterol 160/4.5 6 GM 60 PUFF INH IH (09:00)
[2023-10-21] MEDS: Midodrine 2.5 MG TAB 5 MG PO ×2 (09:03→14:40)
[2023-10-21] MEDS: Ascorbic Acid 500 MG TAB 1000 MG PO (09:03)
[2023-10-21] MEDS: Benzonatate 200 MG CAP PO ×2 (09:05→14:41)
[2023-10-21] MEDS: Zinc Sulfate 220 MG TAB PO (09:05)
[2023-10-21] MEDS: prednisoLONE SOD PHOS. Soln. 3 MG/ML 40 MG PO (09:57)
[2023-10-21 11:47] VITALS: BP 104/71; PULSE 86; RESP 20; TEMP 36.3; O2SAT 100
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
--- NOTE | 2023-10-21 15:24 | PDOC.CMDIS ---
Date of service: 10/21/23 Time of Service: 15:24 LACE Index Scoring Tool Questions: Length of Stay (in days): 3 Was the patient admitted via the E.D.?: Yes Care Management Discharge Plan Reason for Hospitalization: Seizure, rhabdo Discharge Plan: Shira will return home today with no new services. provided a return to work letter, stating that she will be medically cleared for discharge on 10/30/23, per MD, as requested by MD. Shira will be driven home via private vehicle by family. She will follow up with her PCP and discharge plan of care. Patient/Family Education Needs: Review discharge instructions and limitations, discussion of self care needs including ask me three.
[2023-10-21] MEDS: Enoxaparin 40 MG/0.4 ML SYR SC (15:32)
[2023-10-21 15:40] VITALS: BP 102/64; PULSE 83; RESP 18; TEMP 36.7; O2SAT 98
[2023-10-26 00:33] LABS: Metanephrines, U 112 mcg/24 h; Normetanephrine, U 201 mcg/24 h; Total Metanephrines, U 313 mcg/24 h; Urine Volume 1900 mL
[2023-10-26 16:21] LABS: Lab Add On Test DONE
[2023-10-26 23:16] LABS: Folate 13.4 ng/mL (See Note)
[2023-10-26 23:20] LABS: Vitamin B12 282 pg/mL (211-911)
== END 2023-10-21 17:00 | disposition home or self-care (01) | DRG 178 ==
LOC: ER 10-18 07:22 → MS 10-18 10:02
PROVIDERS: Internal Medicine; Physician Assistant; Admitting Provider Family Medicine; Emergency Provider Student in an Organized Health Care Education/Training Program; PCP Student in an Organized Health Care Education/Training Program; Visit Provider Family Medicine
DX: U07.1 COVID-19 (principal); E74.89 Other specified disorders of carbohydrate metabolism; M35.89 Other specified systemic involvement of connective tissue; R07.89 Other chest pain; R00.0 Tachycardia, unspecified; J45.40 Moderate persistent asthma, uncomplicated; U09.9 Post COVID-19 condition, unspecified; R73.9 Hyperglycemia, unspecified; J32.9 Chronic sinusitis, unspecified; G43.909 Migraine, unspecified, not intractable, without status migrainosus; K21.9 Gastro-esophageal reflux disease without esophagitis; R63.5 Abnormal weight gain; R74.9 Abnormal serum enzyme level, unspecified; Z68.28 Body mass index [BMI] 28.0-28.9, adult
CPT/HCPCS: 00123; 36415; 36416; 71275; 80048; 80053; 80076; 80307; 81025; 82306; 82962; 84145; 85027; 85652; 93005; 94640; 96361; 96365; 96372; 96375; 99291; J1650; 81003; 81015; 82607; 82728; 82746; 83540; 83550; 83605; 83615; 83735; 83835; 83880; 84439; 84443; 84484; 85025; 85379; 85610; 86140; 93010; 93306; 94664; 94667; 94668; 94760; 99223; 99232; 99233; 99239; J0131; J0248; J1100; J1644; J1885; J2405; J3490

== ENCOUNTER → 2023-11-16 09:47 | Outpatient (CLI) | payer BC, SELFPAY ==
--- NOTE | 2023-11-16 09:30 | DI.RAD_ITS ---
Exam(s) XR CHEST 2V PA LATERAL EXAM: XR CHEST 2V PA LATERAL CLINICAL HISTORY: R05.9 persistent cough and fatigue. TECHNIQUE: 2D digital imaging was performed. COMPARISON: CR XR CHEST 2V PA LATERAL from 10/17/2023 FINDINGS: 2 views: Heart size is normal. The mediastinum is not widened. Lungs are clear. No infiltrates nor pleural effusions. IMPRESSION: No acute pulmonary findings. DATA REPOSITORY: RADIATION DOSE DELIVERED:
== END ==
PROVIDERS: PCP Student in an Organized Health Care Education/Training Program; Visit Provider Student in an Organized Health Care Education/Training Program
DX: R05.9 Cough, unspecified (principal)
CPT/HCPCS: 71046

== ENCOUNTER 2023-11-16 12:41 | Outpatient (CLI) | payer BC, SELFPAY ==
[2023-11-16 16:57] LABS: Anion Gap 7.9 mmol/L (3-11); BUN 12 mg/dL (7-18); CO2 28.1 mmol/L (21.0-32.0); CREATININE 0.8 mg/dL (0.55-1.02); Calcium 9.3 mg/dL (8.5-10.1); Chloride 101 mmol/L (98-107); Estimated GFR 104.15 (mL/min/1.73m2); Glucose 109 mg/dL (74-106); Potassium 3.9 mmol/L (3.5-5.1); Sodium 137 mmol/L (136-145); Vitamin B12 254 pg/mL (193-986)
[2023-11-16 17:24] LABS: Lab Add On Test DONE
[2023-11-16 17:46] LABS: TSH 0.33 uIU/mL (0.36-3.74)
[2023-11-16 18:26] LABS: Lab Add On Test DONE
[2023-11-16 18:47] LABS: FREE T4 0.91 ng/dL (0.76-1.46)
[2023-11-17 17:20] LABS: T3,Free 4.6 pg/mL (2.8-5.3)
== END 2023-11-16 12:42 | disposition home or self-care (01) ==
LOC: LBO 12:41
PROVIDERS: PCP Student in an Organized Health Care Education/Training Program; Visit Provider Student in an Organized Health Care Education/Training Program
DX: E53.8 Deficiency of other specified B group vitamins (principal); I10 Essential (primary) hypertension; Z88.6 Allergy status to analgesic agent; R53.83 Other fatigue; R63.5 Abnormal weight gain; R79.89 Other specified abnormal findings of blood chemistry
CPT/HCPCS: 36415; 80048; 82607; 83036; 84439; 84443; 84481

== ENCOUNTER 2023-12-05 17:22 | Outpatient (CLI) | payer BC, SELFPAY ==
[2023-12-05 17:01] LABS: Abs Immature Grans 0.03 10^3/uL (0.0-0.06); Absolute Basophil Count 0.04 10^3/uL (0.0-0.2); Absolute Eosinophil Count 0.08 10^3/uL (0.0-0.7); Absolute Lymphocyte Count 3.67 10^3/uL (1.2-3.4); Absolute Neutrophil Count 4.94 10^3/uL (1.2-6.7); Basophils % 0.4; Eosinophils % 0.8; HCT 42.5 % (36.0-46.0); HGB 14.2 g/dL (11.2-15.7); Immature Grans % 0.3; Lymphocytes % 37.6; MCH 31.2 pg (27.0-33.0); MCHC 33.4 % (32.0-36.0); MCV 93 fL (80-95); MPV 12.3 fL (8.0-11.0); Monocytes % 10.2; Neutrophils % 50.7; Platelet Count 302 10^3/uL (130-400); RBC 4.55 10^6/uL (3.93-5.22); RDW 12.7 % (11.7-14.6); RDW-SD 43.8 fL; WBC 9.76 10^3/uL (4.4-10.8)
[2023-12-05 18:03] LABS: Anion Gap 8.1 mmol/L (3-11); BUN 16 mg/dL (7-18); CO2 26.9 mmol/L (21.0-32.0); CREATININE 0.7 mg/dL (0.55-1.02); Calcium 9.4 mg/dL (8.5-10.1); Chloride 103 mmol/L (98-107); Estimated GFR 122.25 (mL/min/1.73m2); Glucose 85 mg/dL (74-106); Potassium 3.7 mmol/L (3.5-5.1); Sodium 138 mmol/L (136-145)
[2023-12-06 18:11] LABS: IgE 3 IU/mL (<158)
== END 2023-12-05 17:23 | disposition home or self-care (01) ==
LOC: LBO 17:22
PROVIDERS: PCP Student in an Organized Health Care Education/Training Program; Visit Provider Student in an Organized Health Care Education/Training Program
DX: J45.909 Unspecified asthma, uncomplicated (principal); M25.561 Pain in right knee; N28.9 Disorder of kidney and ureter, unspecified; R20.2 Paresthesia of skin; R93.89 Abnormal findings on diagnostic imaging of other specified body structures; S87.80XA Crushing injury of unspecified lower leg, initial encounter; X58.XXXA Exposure to other specified factors, initial encounter
CPT/HCPCS: 36415; 80048; 82785; 85025

== ENCOUNTER 2024-01-09 19:05 | Outpatient (CLI) | payer BC, SELFPAY ==
[2024-01-09 17:21] LABS: FREE T4 0.93 ng/dL (0.76-1.46); TSH (W/Ref FT4) 0.79 uIU/mL (0.36-3.74)
[2024-01-10 19:16] LABS: Thyroglobulin Antibody <15 U/mL (<=60); Thyroperoxidase Antibody 29 U/mL (<=60)
== END 2024-01-09 19:06 | disposition home or self-care (01) ==
LOC: LBO 19:06
PROVIDERS: Absent Provider Student in an Organized Health Care Education/Training Program; PCP Student in an Organized Health Care Education/Training Program; Visit Provider Student in an Organized Health Care Education/Training Program
DX: R79.89 Other specified abnormal findings of blood chemistry (principal)
CPT/HCPCS: 36415; 86376; 84439; 84443; 84481

== ENCOUNTER → 2024-01-15 01:53 | Outpatient (CLI) | payer BC, SELFPAY ==
--- NOTE | 2024-01-15 08:30 | DI.MRI_ITS ---
Exam(s) MR BRAIN WO/W EXAM: MR BRAIN WO/W CLINICAL HISTORY: new L TGN,FACIAL NEURALGIA,G51.8,KNOWN CEREBRAL CYST TECHNIQUE: Multiplanar multisequence MRI of the brain was performed. Both noninfused and contrast i nfused sequences were performed. Also performed high-resolution sub mm slice thickness T2 sequences the region of the trigeminal nerves. IV Contrast injected was 18 cc Dotarem. COMPARISON: No exams were available for comparison FINDINGS: CEREBRAL PARENCHYMA: No evidence of intracranial hemorrhage, mass effect nor shift of midline structu re. No extraaxial fluid collections. There is mild focal dilatation of the left lateral ventricle just a nterior to the atrium, exhibiting CSF intensity on all sequences and lack of abnormal enhancement at this level.. Also no abnormal signal in adjacent white matter and no abnormal signal within nor dysg enesis of the corpus callosum. In the right paracentral posterior fossa there is a small retro cerebellar arachnoid cyst measuring 1 .3 cm AP by 1.4 cm wide No abnormal signal in the adjacent cerebellar hemispheres. No abnormal signal in the anil and midbra in and thalami. No evidence of demyelinating disease. DWI: No areas of restricted diffusion to suggest acute ischemic event. SWI: No microhemorrhages evident. There are no ring enhancing lesions in the brain. There is no abnormal meningeal enhancement. TRIGEMINAL NERVES: On the axial and coronal sub millimeter slice sequence is there is a small vessel contacting the inferior surface of the left trigeminal nerve within the extra-axial space between the anil and Meckel's cave. PITUITARY GLAND: No mass nor parasellar abnormality. No obvious abnormality in the cavernous sinuses. FLOW VOIDS: The expected flow void are noted. No evidence of obvious aneurysm nor obvious vascular ma lformation. PARANASAL SINUSES: There is some mucosal thickening without fluid levels in the maxillary sinuses as well as significant fluid-filled right frontal sinuses consistent with sinusitis. Sphenoid sinuses a re clear. Some fluid is seen in ethmoidal air cells. Mastoid air cells are clear. ORBITS: No obvious abnormal findings. IMPRESSION: 1. On the sub millimeter slice sequences there is a small vessel contacting the inferior aspect of th e left trigeminal nerve in its extra-axial course as described above. This may be related to trigemi nal neuralgia. 2. There is a small right paracentral retro cerebellar arachnoid cyst measuring 13 x 14 mm. 3. There is mild focal dilatation of the left lateral ventricle just anterior to the atrium, exhibit ing CSF signal on all sequences and without enhancing mass evident at this level. This may be relate d to the subtle developmental versus presence of a focal imperceptible thin walled cyst of the choroi d plexus. 4. There are no ring enhancing lesions in the brain and there is no abnormal meningeal enhancement. 5. There is significant frontal sinusitis with complete opacification of the right frontal sinus. A lso the right frontoethmoidal recess. Left side is spared. There is some mucosal thickening noted i n the left maxillary sinus but without fluid level. DATA REPOSITORY:
[2024-01-15] MEDS: Normal Saline Flush 10 ML SYR IVP (14:50)
[2024-01-15] MEDS: Gadoterate meglumine 20 ML SYRINGE 14 ML IVP (14:54)
--- NOTE | 2024-01-15 18:50 | DI.VRAD_ITS ---
PROCEDURE INFORMATION: Exam: MR Head Without and With Contrast Exam date and time: 01/15/2024 2:35 PM Age: 28 years old Clinical indication: Other: New L tgn, facial neuralgia, known cerebral cyst TECHNIQUE: Imaging protocol: Magnetic resonance imaging of the head without and with contrast. Contrast material: DOTAREM; Contrast volume: 18 ml; Contrast route: INTRAVENOUS (IV); COMPARISON: CT FACE (SINUS) WITHOUT CONTRAST 05/21/2020 1:59 PM FINDINGS: Brain: Normal. No acute infarct. No hemorrhage. No significant white matter disease. No edema. 12 mm posterior fossa arachnoid cyst, just right of midline. Cerebral ventricles: Normal. No ventriculomegaly. Bones/joints: Unremarkable. Paranasal sinuses: DWI and mixed T2 hyperintensity in the right frontal and ethmoid sinuses, likely representing sinusitis. Mastoid air cells: Normal as visualized. No mastoid effusion. Orbital cavities: Unremarkable. Soft tissues: A tiny branching vessel contacts the inferior surface of the left trigeminal nerve, 4 mm distal to the nerve root entry zone. IMPRESSION: 1. Vascular contact with the left trigeminal nerve near the transition zone, possibly resulting in trigeminal neuralgia. 2. 12 mm right posterior fossa arachnoid cyst. 3. Right frontal and ethmoid sinusitis. Dictated and Authenticated by: Lavon Sam MD. Ordering:STEVEN Abernathy MD
== END ==
PROVIDERS: PCP Student in an Organized Health Care Education/Training Program; Visit Provider Psychiatry & Neurology Neurology
DX: G51.8 Other disorders of facial nerve (principal); R94.02 Abnormal brain scan
CPT/HCPCS: 70553

== ENCOUNTER 2024-01-19 11:23 | Outpatient (CLI) | payer BC, SELFPAY ==
[2024-01-19 17:34] LABS: HCG Quant, Pregnancy < 1 mIU/mL (1-3)
[2024-01-19 18:30] LABS: Bacteria Few HPF (Negative); Crystals Few Amorphous HPF (Negative); Epithelial Cells Few HPF (Negative)
[2024-01-19 18:31] LABS: C & S Indicated? C&S Done As Ordered; Casts Negative LPF (Negative); Mucus Moderate (Negative)
== END 2024-01-19 11:24 ==
LOC: LBO 01-24 11:24
PROVIDERS: PCP Student in an Organized Health Care Education/Training Program; Visit Provider Student in an Organized Health Care Education/Training Program
DX: R30.0 Dysuria (principal); N93.9 Abnormal uterine and vaginal bleeding, unspecified; R10.2 Pelvic and perineal pain; N94.6 Dysmenorrhea, unspecified
CPT/HCPCS: 36415; 81015; 84702; 87086

== ENCOUNTER 2024-02-19 05:07 | Outpatient (CLI) | payer BC, SELFPAY ==
[2024-02-19 16:06] LABS: Abs Immature Grans 0.02 10^3/uL (0.0-0.06); Absolute Basophil Count 0.04 10^3/uL (0.0-0.2); Absolute Eosinophil Count 0.06 10^3/uL (0.0-0.7); Absolute Lymphocyte Count 2.87 10^3/uL (1.2-3.4); Absolute Monocyte Count 0.73 10^3/uL (0.1-0.8); Absolute Neutrophil Count 5.08 10^3/uL (1.2-6.7); Basophils % 0.5; Eosinophils % 0.7; HGB 15.9 g/dL (11.2-15.7); Immature Grans % 0.2; Lymphocytes % 32.6; MCH 31.4 pg (27.0-33.0); MCHC 33.1 % (32.0-36.0); MCV 95 fL (80-95); MPV 12.8 fL (8.0-11.0); Monocytes % 8.3; Neutrophils % 57.7; Platelet Count 239 10^3/uL (130-400); RBC 5.06 10^6/uL (3.93-5.22); RDW 11.9 % (11.7-14.6); RDW-SD 41.8 fL
[2024-02-19 16:08] LABS: Bilirubin Negative (Negative); Blood Moderate (Negative); Clarity Clear (Clear); Glucose Negative (Negative); Ketones Negative (Negative); Leukocyte Esterase Small (Negative); Nitrite Negative (Negative); Specific Gravity 1.015 (1.005-1.025); pH 6.5 (5-8)
[2024-02-19 16:19] LABS: Bacteria Rare HPF (Negative); C & S Indicated? No/Sq. Contamination; Casts Negative LPF (Negative); Crystals Negative HPF (Negative); Epithelial Cells Many HPF (Negative); Mucus Negative (Negative); Other Cells Rare Transitional (Negative); RBC 0-2 HPF (0-2)
[2024-02-19 17:12] LABS: ESR 7 mm/hr (0-20)
[2024-02-19 17:45] LABS: C-Reactive Protein 2.29 mg/dL (<or=0.5)
== END 2024-02-19 05:08 | disposition home or self-care (01) ==
LOC: LBO 05:07
PROVIDERS: Absent Provider Student in an Organized Health Care Education/Training Program; PCP Student in an Organized Health Care Education/Training Program; Referring Provider Student in an Organized Health Care Education/Training Program; Visit Provider Student in an Organized Health Care Education/Training Program
DX: R31.9 Hematuria, unspecified; R82.89 Other abnormal findings on cytological and histological examination of urine; M19.09 Primary osteoarthritis, other specified site
CPT/HCPCS: 36415; 85652; 81003; 81015; 85025; 86140

== ENCOUNTER → 2024-02-23 01:01 | Outpatient (CLI) | payer BC, SELFPAY ==
--- NOTE | 2024-02-23 09:20 | DI.MAMMO_ITS ---
Exam(s) US BREAST LT COMPLETE MG MAMMO DIAGNOSTIC BI EXAM: MG MAMMO DIAGNOSTIC BI CLINICAL HISTORY: LEFT breast nodule found on CARDIAC MRI. COMPARISON: US US BREAST LT COMPLETE from 02/23/2024 Patient had a cardiac MRI done which detected a nodule in the left breast. The images are unavailabl e. TECHNIQUE: Craniocaudal and mediolateral oblique Full Field Digital Mammography views of both breast s with Computer Aided Diagnosis followed by Tomosynthesis and left breast ultrasound. FINDINGS: Mammography/Tomosynthesis: Masses/Architectural Distortion: None seen. Microcalcifications: No suspicious pleomorphic-type are seen. Skin Thickening/Nipple Retraction: None. Left breast US: Echotexture: Normal appearance of the glandular tissue. Shadowing: No suspicious foci. Cyst: Hypoechoic circumscribed nodule 1 o'clock position 3 cm from nipple measuring 10 x 5 x 10 ratna meters. Findings may represent a complex cyst versus fibroadenoma. No vascularity. Increased throu gh transmission. Solid lesions: None seen. Ductal dilation: None. IMPRESSION: 1. No evidence of malignancy is noted. 2. Unless there is more urgent need, follow-up screening mammography is recommended, as per [place] [employer] guidelines. BI-RADS Category 2 - Benign Findings Breast Density - Category C - Heterogeneously dense Breast density category C or D implies that the patient has dense breast tissue. Dense breast tissue is very common and is not abnormal but dense breast tissue can make it harder to find cancer on a ma mmogram. Also, dense breast tissue may increase their breast cancer risk. This information about the result of the mammogram report was provided to the patient to raise their awareness. Use this report when you speak with the patient about their risks for breast cancer, which includes their family hist ory. At that time, you may recommend for more screening tests (Ultrasound or MRI) as they might be us eful based on their risk. A negative radiographic report should not delay biopsy if a dominant or clinically suspicious mass is present. Up to ten percent of cancers are not identified on mammography. A negative report may reinforce clinical impression. Adenosis and dense breasts may obscure an underlying neoplasm. False positive reports average 6 to 10%. Patient will receive a letter notifying them of these results.
== END ==
PROVIDERS: PCP Student in an Organized Health Care Education/Training Program; Visit Provider Obstetrics & Gynecology Gynecology
DX: R92.8 Other abnormal and inconclusive findings on diagnostic imaging of breast (principal); N63.21 Unspecified lump in the left breast, upper outer quadrant; R92.333 Mammographic heterogeneous density, bilateral breasts
CPT/HCPCS: 76642; 77062; 77066; G0279

== ENCOUNTER 2024-04-11 05:09 | Outpatient (CLI) | payer BC, SELFPAY ==
[2024-04-11 16:11] LABS: Abs Immature Grans 0.02 10^3/uL (0.0-0.06); Absolute Basophil Count 0.03 10^3/uL (0.0-0.2); Absolute Eosinophil Count 0.05 10^3/uL (0.0-0.7); Absolute Lymphocyte Count 2.88 10^3/uL (1.2-3.4); Absolute Monocyte Count 0.53 10^3/uL (0.1-0.8); Absolute Neutrophil Count 4.93 10^3/uL (1.2-6.7); Basophils % 0.4 %; Eosinophils % 0.6 %; HCT 44.1 % (36.0-46.0); HGB 14.6 g/dL (11.2-15.7); Immature Grans % 0.2 %; Lymphocytes % 34.1 %; MCHC 33.1 % (32.0-36.0); MCV 94 fL (80-95); MPV 12.4 fL (8.0-11.0); Monocytes % 6.3 %; Neutrophils % 58.4 %; Platelet Count 239 10^3/uL (130-400); RBC 4.71 10^6/uL (3.93-5.22); RDW 11.6 % (11.7-14.6); RDW-SD 40.1 fL; WBC 8.44 10^3/uL (4.4-10.8)
[2024-04-11 16:50] LABS: Anion Gap 9.4 mmol/L (3-11); BUN 14 mg/dL (7-18); C-Reactive Protein 1.17 mg/dL (<or=0.5); CO2 27.6 mmol/L (21.0-32.0); CREATININE 0.8 mg/dL (0.55-1.02); Chloride 102 mmol/L (98-107); Estimated GFR 104.15 (mL/min/1.73m2); Glucose 119 mg/dL (74-106); Potassium 3.2 mmol/L (3.5-5.1); Sodium 139 mmol/L (136-145); TSH (W/Ref FT4) 1.13 uIU/mL (0.36-3.74)
[2024-04-13 10:58] LABS: Erythropoietin 9.9 mIU/mL (2.6 - 18.5)
[2024-04-18 23:12] LABS: Cortisol, Free 0.296 mcg/dL; PM Cortisol 19 mcg/dL (2-14)
== END 2024-04-11 05:10 | disposition home or self-care (01) ==
LOC: LBO 05:09
PROVIDERS: PCP Student in an Organized Health Care Education/Training Program; Referring Provider Student in an Organized Health Care Education/Training Program; Visit Provider Student in an Organized Health Care Education/Training Program
DX: I10 Essential (primary) hypertension (principal); R79.82 Elevated C-reactive protein (CRP); R79.89 Other specified abnormal findings of blood chemistry; E16.2 Hypoglycemia, unspecified; Z91.89 Other specified personal risk factors, not elsewhere classified; G90.A Postural orthostatic tachycardia syndrome [POTS]
CPT/HCPCS: 36415; 80048; 82530; 82533; 82668; 84443; 85025; 86140

== ENCOUNTER 2024-06-14 23:04 | Emergency (ER) | payer BC, SELFPAY ==
[2024-06-14 23:07] VITALS: BP 113/80; PULSE 92; RESP 18; TEMP 36.8; O2SAT 98
--- OUTSIDE RECORDS SUMMARY | 2024-06-14 23:15 | XMS_ITS | Encounter Summary ---
Author Organization [facility] [place] [address] Care Team Providers Care Monorail Operator Name Role Phone Jeanine Kyelaarmida Jessica DO Primary Care Provider [phone]- [phone] Reason for Visit * Diagnostic Test (Routine) - Closed Specialty Diagnoses / Procedures Referred By Contac t Referred To Contact Radiology Diagnoses Hypoglycemia Procedures NM Gastric Emptying Scan Shira Leach PA [facility] [place] [address] [place] [address] Referral ID Status Reason Start Date Expiration Date V isits Requested Visits Authorized [id number] Closed Specialty Service Requested 02/07/2024 08/09/2025 1 1 Encounter Details Date Type Department Care Team (Latest Contact Info) Description 05/20/2024 9:30 AM EDT - 05/20/2024 11:59 PM EDT Hospital Encounter [place] [address] Sundar Bingham MD [facility] [place] [address] Discharge Disposition: Home Social History Tobacco Use Types Packs/Day Years Used Date Smoking Tobacco: Never Smokeless Tobacco: Never Alcohol Use Standard Drinks/Week Comments Not Currently 0 (1 standard drink = 0.6 oz pur e alcohol) Sex and Gender Information Value Date Recorded Sex Assigned at Not on file Gender Identity Not on file Sexual Orientation Not on file documented as of this encounter Medications at Time of Discharge Medication Sig Dispensed Refills Start Date End Date Dexcom G7 Sensor Device CHANGE EVERY 10 DAYS DIRECTED 06/05/2023 diclofenac (Voltaren) 1 % Gel Apply topically. fluticasone propionate (Flonase) 50 mcg/actuation [place], Suspension 08/08/2022 albuteroL 90 mcg/actuation HFA Aerosol Inhaler Every 4 hours. Microgestin 1.5/30, 21, 1.5-30 mg-mcg Tablet TAKE 1 ACTIVE PILL BY MOUTH DAILY, NO WITHDRAWAL BLEED 07/29/2022 documented as of this encounter Plan of Treatment Upcoming Encounters Date Type Department Care Team (Late st Contact Info) Description 07/10/2024 1:30 PM EDT Office Visit [place] [address] Lee Regan MD [facility] [place] [address] documented as of this encounter Procedures Procedure Name Priority Date/Time Associated Diagnosis Comments NM GASTRIC EMPTYING SCAN Routine 05/20/2024 2:23 PM EDT Hypoglycemia documented in this encounter Results * NM Gastric Emptying Scan (05/20/2024 2:23 PM EDT) WORKSTATION ID [id number] [facility] Anatomical Region Laterality Modality Nuclear Medicine Impressions 05/20/2024 2:51 PM EDT Normal gastric emptying. I have personally reviewed the image(s) and the resident's interpretation and agree with the findings, Emanuel Bennett MD at 05/20/2024 2:51 PM Thank you for letting us participate in the care of this patient. ??If you are a health care provider and have any questions regarding this report, please contact the number below. ??For patients who have questions please contact the health manager critical care unit that requested your imaging first. ? Electronically signed by: Emanuel Bennett MD, [facility] ([phone]), at 05/20/2024 2:51 PM Narrative 05/20/2024 2:51 PM EDT EXAMINATION: NM GASTRIC EMPTYING SCAN CLINICAL HISTORY: evaulation for dumping syndrome given severe hypogycemia without diagnosis of DM E16.2, Hypoglycemia, unspecified TECHNIQUE: A standard meal was labeled with 0.6 mCi of technetium-99m sulfur colloid and ingested. Images of the stomach were obtained in the anterior and posterior projections immediately thereafter and 1, 2, 3 and 4 hours later. COMPARISON: None FINDINGS: Activity fills the stomach on the initial images obtained immediately after ingesting the meal. Small bowel is visible at one hour. There is minimal activity present in the stomach at 4 hours. Quantitative analysis: 2 hours: 37% in the stomach (normal less than 60%) 4 hours: 3% in the stomach (normal less than 10% at four hours) Procedure Note Emanuel Bennett MD - 05/20/2024 EXAMINATION: NM GASTRIC EMPTYING SCAN CLINICAL HISTORY: evaulation for dumping syndrome given severehypogycemia without diagnosis of DM E16.2, Hypoglycemia, unspecified TECHNIQUE: A standard meal was labeled with 0.6 mCi of technetium-99msulfur colloid and ingested. Images of the stomach were obtained in the anteriorand posterior projections immediately thereafter and 1, 2, 3 and 4 hourslater. COMPARISON: None FINDINGS: Activity fills the stomach on the initial images obtained immediatelyafter ingesting the meal. Small bowel is visible at one hour. There is minimal activity present in the stomach at 4 hours. Quantitative analysis: 2 hours: 37% in the stomach (normal less than 60%) 4 hours: 3% in the stomach (normal less than 10% at four hours) IMPRESSION Normal gastric emptying. I have personally reviewed the image(s) and the resident's interpretationand agree with the findings, Emanuel Bennett MD at 05/20/2024 2:51 PM Thank you for letting us participate in the care of this patient. If youare a health care provider and have any questions regarding this report,please contact the number below. For patients who have questions please contactthe health manager critical care unit that requested your imaging first. Electronically signed by: Emanuel Bennett MD, [facility]([phone]), at 05/20/2024 2:51 PM Sundar Bingham MD IM NM ORDERABLES documented in this encounter Visit Diagnoses Not on filedocumented in this encounter Care Teams Monorail Operator Relationship Specialty Start Date End Date Keyla Solorzano DO [address] [place] [address] PCP - General Family Medicine 05/23/23 documented as of this encounter
--- OUTSIDE RECORDS SUMMARY | 2024-06-14 23:15 | XMS_ITS | Encounter Summary ---
Author Organization [facility] Address [facility] [place] [address] Care Team Providers Care Color Printer Operator Name Role Phone Jocelyn Dhillon APRN Primary Care Provider [phone] Reason for Visit * Consultation (Routine) - Closed Specialty Diagnoses / Procedures Referred By Lilly fry Referred To Contact Dermatology Diagnoses Melanocytic nevus, unspecified location Valerie Morrison APRN [address] [place] [address] [facility] Dermatology [address] [place] [address] Referral ID Status Reason Start Date Expiration Date V isits Requested Visits Authorized [id number] Closed Consult, Test & Treat PCP Updated and/or Approved 07/29/2022 07/29/2023 6 6 Encounter Details Date Type Department Care Team (Late Contact Info) Description 08/09/2022 4:30 PM EDT Office Visit Dermatology at [facility] [address] [place] [address] Antoinette Hankins MD [facility] [place] [address] Melanocytic nevus, unspecified location Social History Tobacco Use Types Packs/Day Years Used Date Smoking Tobacco: Never Smokeless Tobacco: Never Sex and Gender Information Value Date Recorded Sex Assigned at Not on file Gender Identity Not on file Sexual Orientation Not on file documented as of this encounter Progress Notes * Antoinette Ragland MD - 08/09/2022 4:30 PM EDT Images from the original note were not included. DEPARTMENT OF DERMATOLOGY Medical Dermatology Clinic Provider: Antoinette Ragland MD Patient's preferred name Shira Preferred contact method for results [x]Phone []myD-H []Letter Detailed phone message OK? yes Are there any other people with whom we may discuss your care? 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 Patient is referred to the clinic at the request of Valerie Morrison for the following: -Mole on right parietal scalp. Present most of pts life. Changes in size or color. No previous treatment. Review of Systems: General: Feeling well. Skin: No other skin concerns. Medications: Reviewed in eD-H Allergies: Reviewed in eD-H Skin Examination: Focused skin examination of the R parietal sclap was normal with the exception of the findings below. Assessment/Plan # Melanocytic Nevus, favor cockade pattern- on the right parietal scalp is a 6 mm reticulate brown macule, dark brown border, and light brown center. Light brown macule on the abdomen - Discussed benign appearing nevi based on today's exam - Recommended follow-up with dermatology if any changes in any pigmented lesions are noted or any concerns regarding new lesions arise. - Will follow up in 4-5 months for nevus recheck Figure 1 Photo(s) taken and charted with patient's verbal consent. RTC: 4-5 month nevus follow up []Note routed to secretary board of commissioners []Recall placed in scheduling system [x]Appointment scheduled at checkout Scribe attestation: Fanny Rutledge LPN and Radha Chapa MA have performed the documentation for this encounter in the presence of and acting as a scribe for Antoinette Ragland MD. I performed the above scribed service and agree with the accuracy of the documentation in this encounter. Reviewed and signed by: Antoinette Ragland MD Dermatology [facility] documented in this encounter Plan of Treatment Upcoming Encounters Date Type Department Care Team (Late st Contact Info) Description 07/10/2024 1:30 PM EDT Office [place] [address] Lee Regan MD [facility] [place] [address] documented as of this encounter Visit Diagnoses Diagnosis Melanocytic nevus, unspecified location documented in this encounter Care Teams Color Printer Operator Relationship Specialty Start Date End Date Jocelyn Dhillon APRN [address] [place] [address] PCP - General Family Medicine 07/29/22 05/22/23 documented as of this encounter
--- OUTSIDE RECORDS SUMMARY | 2024-06-14 23:15 | XMS_ITS | Encounter Summary ---
Author Organization [facility] Address [facility] [place] [address] Care Team Providers Care Corset Maker Name Role Phone Keyla Solorzano DO Primary Care Provider +1- [phone] Encounter Details Date Type Department Care Team (Late st Contact Info) Description 02/27/2024 [place] [address] Shauna Damian RN Social History Tobacco Use Types Packs/Day Years Used Date Smoking Tobacco: Never Smokeless Tobacco: Never Alcohol Use Standard Drinks/Week Comments Not Currently 0 (1 standard drink = 0.6 oz pur e alcohol) Sex and Gender Information Value Date Recorded Sex Assigned at Not on file Gender Identity Not on file Sexual Orientation Not on file documented as of this encounter Miscellaneous Notes * Telephone Encounter - Shauna Damian RN - 02/27/2024 10:24 AM EDT Reaching out to assist pt in scheduling the NM (gastric emptying scan) & the XR (fluoro upper GI series) ordered on 02/07/2024 by PA. Perrone. STRATTON for pt to call the radiology dept to schedule imaging. documented in this encounter Plan of Treatment Upcoming Encounters Date Type Department Care Team (Late st Contact Info) Description 07/10/2024 1:30 PM EDT Office Visit [place] [address] Lee Regan MD [facility] [place] [address] documented as of this encounter Visit Diagnoses Not on filedocumented in this encounter Care Teams Corset Maker Relationship Specialty Start Date End Date Keyla Solorzano DO [address] [place] [address] PCP - General Family Medicine 05/23/23 documented as of this encounter
--- OUTSIDE RECORDS SUMMARY | 2024-06-14 23:15 | XMS_ITS | Encounter Summary ---
[place] [address] Care Team Providers Care Talent Development Director Name Role Phone Jeanine Keylaarmida Jessica DO Primary Care Provider +1- [phone] Reason for Referral * Diagnostic Test (Routine) - Closed Specialty Diagnoses / Procedures Referred By Contac t Referred To Contact Radiology Diagnoses Hypoglycemia Procedures NM Gastric Emptying Scan Shira Leach PA [facility] [place] [address] [place] [address] Referral ID Status Reason Start Date Expiration Date V isits Requested Visits Authorized [id number] Closed Specialty Service Requested 02/07/2024 08/09/2025 1 1 Reason for Visit * Diagnostic Test (Routine) - Closed Specialty Diagnoses / Procedures Referred By Contac t Referred To Contact Radiology Diagnoses Hypoglycemia Procedures NM Gastric Emptying Scan Shira Leach PA [facility] [place] [address] [place] [address] Referral ID Status Reason Start Date Expiration Date V isits Requested Visits Authorized [id number] Closed Specialty Service Requested 02/07/2024 08/09/2025 1 1 Encounter Details Date Type Department Care Team (Latest Contact Info) Description 05/20/2024 9:29 AM EDT Hospital Encounter [place] [address] Sundar Bingham MD [facility] [place] [address] Hypoglycemia Discharge Disposition: Home Social History Tobacco Use [...] Apply topically. fluticasone propionate (Flonase) 50 mcg/actuation [place], Suspension 08/08/2022 albuteroL 90 mcg/actuation HFA Aerosol Inhaler Every 4 hours. Microgestin 1.5/30, 21, 1.5-30 mg-mcg Tablet TAKE 1 ACTIVE PILL BY MOUTH DAILY, NO WITHDRAWAL BLEED 07/29/2022 documented as of this encounter Plan of Treatment Upcoming Encounters Date Type Department Care Team (Late st Contact Info) Description 07/10/2024 1:30 PM EDT Office [place] [address] Lee Regan MD [facility] [place] [address] documented as of this encounter Procedures Procedure Name Priority Date/Time Associated Diagnosis Comments NM GASTRIC EMPTYING SCAN Routine 05/20/2024 2:23 PM EDT Hypoglycemia documented in this encounter Results * NM Gastric Emptying Scan (05/20/2024 2:23 PM EDT) WORKSTATION ID [id number] [facility] Anatomical Region Laterality Modality Nuclear Medicine Impressions [...] who have questions please contact the health residential care facility manager that requested your imaging first. ? Narrative 05/20/2024 2:51 PM EDT EXAMINATION: NM [...] patients who have questions please contactthe health residential care facility manager that requested your imaging first. Sundar Bingham MD IMG NM ORDERABLES documented in this encounter Visit Diagnoses Diagnosis Hypoglycemia Hypoglycemia, unspecified documented in this encounter Administered Medications Inactive Administered Medications - up to 3 most recent administrations Medication Order MAR Action Action Date Dose Rate Site technetium (Tc-99m) sulfur colloid injection 0-18 mCi 0-18 mCi, Oral, ONCE PRN, 1 dose, Starting on Mon05/20/24 at 1004, Until Mon05/20/24 at 1000, Per Protocol, Radiology Contrast, Routine Given 05/20/2024 10:00 AM EDT 0.6 mCi documented in this encounter Care Teams Talent Development Director Relationship Specialty Start Date End Date Keyla Solorzano DO [address] [place] [address] PCP - General Family Medicine 05/23/23 documented as of this encounter
--- OUTSIDE RECORDS SUMMARY | 2024-06-14 23:15 | XMS_ITS | Encounter Summary ---
Author Organization [facility] [place] [address] Care Team Providers Care Merchandise Team Manager Name Role Phone Jeanine Keylaarmida Jessica DO Primary Care Provider +1- [phone] Reason for Visit * Diagnostic Test (Routine) - Closed Specialty Diagnoses / Procedures Referred By Contac t Referred To Contact Radiology Diagnoses Hypoglycemia Procedures NM Gastric Emptying Scan Shira Leach PA [facility] [place] [address] [place] [address] Referral ID Status Reason Start Date Expiration Date V isits Requested Visits Authorized [id number] Closed Specialty Service Requested 02/07/2024 08/09/2025 1 1 Encounter Details Date Type Department Care Team (Latest Contact Info) Description 05/20/2024 9:29 AM EDT Hospital Encounter [place] [address] Sundar Bingham MD [facility] [place] [address] Discharge Disposition: Home Social History Tobacco Use [...] Apply topically. fluticasone propionate (Flonase) 50 mcg/actuation [place], Suspension 08/08/2022 albuteroL 90 mcg/actuation HFA Aerosol Inhaler Every 4 hours. Microgestin 1.5/30, 21, 1.5-30 mg-mcg Tablet TAKE 1 ACTIVE PILL BY MOUTH DAILY, NO WITHDRAWAL BLEED 07/29/2022 documented as of this encounter Plan of Treatment Upcoming Encounters Date Type Department Care Team (Late st Contact Info) Description 07/10/2024 1:30 PM EDT Office [place] [address] Lee Regan MD [facility] [place] [address] documented as of this encounter Procedures Procedure Name Priority Date/Time Associated Diagnosis Comments NM GASTRIC EMPTYING SCAN Routine 05/20/2024 2:23 PM EDT Hypoglycemia documented in this encounter Results * NM Gastric Emptying Scan (05/20/2024 2:23 PM EDT) WORKSTATION ID [id number] [facility] Anatomical Region Laterality Modality Nuclear Medicine Impressions [...] who have questions please contact the health primary care nurse that requested your imaging first. ? Electronically signed by: Emanuel Bennett MD, [facility] ([phone]), at 05/20/2024 2:51 PM Narrative 05/20/2024 2:51 [...] patients who have questions please contactthe health primary care nurse that requested your imaging first. Electronically signed by: Emanuel Bennett MD, [facility]([phone]), at 05/20/2024 2:51 PM Sundar Bingham MD IM NM ORDERABLES documented in this encounter Visit Diagnoses Not on filedocumented in this encounter Care Teams Merchandise Team Manager Relationship Specialty Start Date End Date Keyla Solorzano DO [address] [place] [address] PCP - General Family Medicine 05/23/23 documented as of this encounter
--- OUTSIDE RECORDS SUMMARY | 2024-06-14 23:15 | XMS_ITS | Encounter Summary ---
Author [facility] [place] [address] Care Team Providers Care Income Tax Analyst Name Role Phone Keyla Solorzano Primary Care Provider +1- [phone] Encounter Details Date Type Department Care Team (Late st Contact Info) Description 04/09/2024 Telephone [place] [address] Estee Lloyd Social History Tobacco Use Types Packs/Day Years [...] encounter Miscellaneous Notes * Telephone Encounter - Estee Lloyd - 04/09/2024 10:44 AM EDT Call placed to patient to request she get records from [facility]. No answer, mailbox full * Telephone Encounter - Estee Lloyd - 04/09/2024 10:44 AM EDT ----- Message from JOLEEN Blancas sent at 02/05/2024 11:03 AM EDT ----- Regarding: recrods Please request records from [facility] in [facility]. Thank you documented in this encounter Plan of Treatment Upcoming Encounters Date Type Department Care Team (Late st Contact Info) Description 07/10/2024 1:30 PM EDT Office Visit [place] [address] Lee Regan MD [facility] [place] [address] documented as of this encounter Visit Diagnoses Not on filedocumented in this encounter Care Teams Income Tax Analyst Relationship Specialty Start Date End Date Keyla Solorzano DO [address] [place] [address] PCP - General Family Medicine 05/23/23 documented as of this encounter
--- OUTSIDE RECORDS SUMMARY | 2024-06-14 23:15 | XMS_ITS | Encounter Summary ---
Author Organization [facility] [place] [address] Care Team Providers Care It Infrastructure Specialist Name Role Phone Keyla Solorzano DO Primary Care Provider +1- [phone] Encounter Details Date Type Department Care Team (Late st Contact Info) Description 03/18/2024 Notes [place] [address] Shira Leach PA [facility] [place] [address] Social History Tobacco Use Types Packs/Day Years Used Date Smoking Tobacco: Never Smokeless Tobacco: Never Alcohol Use Standard Drinks/Week Comments Not Currently 0 (1 standard drink = 0.6 oz pur e alcohol) Sex and Gender Information Value Date Recorded Sex Assigned at Not on file Gender Identity Not on file Sexual Orientation Not on file documented as of this encounter Progress Notes * Shira Leach PA - 03/18/2024 12:56 PM EDT I again reviewed this case with Dr. Young. We discussed the importance of obtaining previous records to determine what has been completed and the degree of hypoglycemia. At this time we have not received records from her diabetes center in [place]. I contacted and left a message myself today 03/18/2024 at 12:55 PM. I provided my personal cell phone number, my office number and my fax number and requested all appropriate records be faxed to us assoon as possible so we can review and determine our plan of care documented in this encounter Plan of Treatment Upcoming Encounters Date Type Department Care Team (Late st Contact Info) Description 07/10/2024 1:30 PM EDT Office [place] [address] Lee Regan MD [facility] [place] [place] [address] documented as of this encounter Visit Diagnoses Not on filedocumented in this encounter Care Teams It Infrastructure Specialist Relationship Specialty Start Date End Date Keyla Solorzano DO [address] [place] [address] PCP - General Family Medicine 05/23/23 documented as of this encounter
--- OUTSIDE RECORDS SUMMARY | 2024-06-14 23:15 | XMS_ITS | Encounter Summary ---
[facility] [place] [address] Care Team Providers Care Skid Wrapper Name Role Phone Keyla Solorzano DO Primary Care Provider +1- [phone] Encounter Details Date Type Department Care Team (Late st Contact Info) Description 06/01/2023 Transcribe Orders eDH Incoming Referrals [phone] Keyla Solorzano DO [address], [place] [id number] Social History Tobacco Use Types Packs/Day Years Used Date Smoking Tobacco: Never Smokeless Tobacco: Never Sex and Gender Information Value Date Recorded Sex Assigned at Not on file Gender Identity Not on file Sexual Orientation Not on file documented as of this encounter Plan of Treatment Upcoming Encounters Date Type Department Care Team (Late st Contact Info) Description 07/10/2024 1:30 PM EDT Office [place] [address] Lee Regan MD [facility] [place] [address] documented as of this encounter Visit Diagnoses Not on filedocumented in this encounter Care Teams Skid Wrapper Relationship Specialty Start Date End Date Keyla Solorzano DO [address] [place], [place] [address] PCP - General Family Medicine 05/23/23 documented as of this encounter
--- OUTSIDE RECORDS SUMMARY | 2024-06-14 23:15 | XMS_ITS | Encounter Summary ---
[place] [address] Care Team Providers Care Water Softener Installer Name Role Phone Keyla Solorzano DO Primary Care Provider +1- [phone] Encounter Details Date Type Department Care Team (Latest Contact Info) Description 06/09/2023 Travel Social History Tobacco Use Types Packs/Day Years [...] 1:30 PM EDT Office [place] [address] Lee Regan MD [facility] [place] [address] documented as of this encounter Visit Diagnoses Not on filedocumented in this encounter Care Teams Water Softener Installer Relationship Specialty Start Date End Date Keyla Solorzano DO [address] [place] [address] PCP - General Family Medicine 05/23/23 documented as of this encounter
--- OUTSIDE RECORDS SUMMARY | 2024-06-14 23:15 | XMS_ITS | Continuity of Care Document ---
Author Organization [facility] Address [address] [place] [address] Care Team Providers Care Traffic Enumerator Name Role Phone Jocelyn Dhillon Primary Care Physician Encounter NCTY_ND Date(s): 10/31/22 - 10/31/[address] [address] Discharge Disposition: Home or Self Care Attending Physician: Shira Wild Admitting Physician: Shira Wild Referring Physician: Shira Wild Social History Social History Type Response Sex Female Patient Care team information Personnel Name: Jocelyn Dhillon SPRING CLIPPER Address: Address: [address] [address]- [place]
--- OUTSIDE RECORDS SUMMARY | 2024-06-14 23:15 | XMS_ITS | Encounter Summary ---
Author Organization [facility] [place] [address] Care Team Providers Care Placement Director Name Role Phone Jocelyn Dhillon APRN Primary Care Provider +1 [phone] Encounter Details Date Type Department Care Team (Late st Contact Info) Description 03/02/2023 Telephone Dermatology at [facility] [address] [place] [address] Antoinette Hankins MD [facility] [address] [place] [address] Social History Tobacco Use Types Packs/Day Years Used Date Smoking Tobacco: Never Smokeless Tobacco: Never Sex and Gender Information Value Date Recorded Sex Assigned at Not on file Gender Identity Not on file Sexual Orientation Not on file documented as of this encounter Miscellaneous Notes * Telephone Encounter - Nanda Hernandes - 03/02/2023 10:39 AM EDT Left message with my direct # for patient to call to reschedule with Dr. Hankins for appt canceled by pt on 03/01 due to illness. documented in this encounter Plan of Treatment Upcoming Encounters Date Type Department Care Team (Late st Contact Info) Description 07/10/2024 1:30 PM EDT Office [place] [address] Lee Regan MD [facility] [place] [address] documented as of this encounter Visit Diagnoses Not on filedocumented in this encounter Care Teams Placement Director Relationship Specialty Start Date End Date Jocelyn Dhillon APRN [address] [place] [address] PCP - General Family Medicine 07/29/22 05/22/23 documented as of this encounter
--- OUTSIDE RECORDS SUMMARY | 2024-06-14 23:15 | XMS_ITS | Encounter Summary ---
[place] [address] Care Team Providers Care Plug Machine Operator Name Role Phone Keyla Solorzano DO Primary Care Provider +1- [phone] Reason for Referral * Consultation (Routine) - Closed Specialty Diagnoses / Procedures Referred By Lilly fry Referred To Contact Orthopaedics Diagnoses Stiffness of right knee, not elsewhere classified Myalgia, other site Chronic pain syndrome Contusion of right knee, initial encounter Keyla Solorzano DO [address] [place] [address] [facility] [place] [place] [facility] [address] [place] [id number] Referral ID Status Reason Start Date Expiration Date V isits Requested Visits Authorized [id number] Closed Consult, Test & Treat PCP Updated and/or Approved 06/01/2023 05/31/2024 6 6 Encounter Details Date Type Department Care Team (Latest Contact Info) Description 06/01/2023 Transcribe Orders eDH Incoming Referrals [phone] Keyla Solorzano DO [address] [place], [place] [id number] Stiffness of right knee, not elsewhere classified; Myalgia, other site; Chronic pain syndrome; Contusion of right knee, initial encounter Social History Tobacco Use Types Packs/Day Years [...] 1:30 PM EDT Office [place] [address] Lee Regan MD [facility] [place] [address] Scheduled Referrals Name Type Priority Associated Diagnoses Order Schedule Referral to Orthopaedics Outpatient Referral Routine Stiffness of right knee, not elsewhere classified Myalgia, other site Chronic pain syndrome Contusion of right knee, initial encounter Ordered: 06/01/2023 documented as of this encounter Visit Diagnoses Diagnosis Stiffness of right knee, not elsewhere classified Myalgia, other site Chronic pain syndrome Contusion of right knee, initial encounter documented in this encounter Care Teams Plug Machine Operator Relationship Specialty Start Date End Date Keyla Solorzano DO [address] [place] [address] PCP - General Family Medicine 05/23/23 documented as of this encounter
--- OUTSIDE RECORDS SUMMARY | 2024-06-14 23:15 | XMS_ITS | Encounter Summary ---
Author Organization [facility] [place] [address] Care Team Providers Care Bogger Operator Name Role Phone Jeanine Keylaarmida Jessica DO Primary Care Provider +1- [phone] Reason for Visit * Diagnostic Test (Routine) - Closed Specialty Diagnoses / Procedures Referred By Contac t Referred To Contact Radiology Diagnoses Hypoglycemia Procedures NM Gastric Emptying Scan Shira Leach PA [facility] [place] [address] [place] [address] Referral ID Status Reason Start Date Expiration Date V isits Requested Visits Authorized [id number] Closed Specialty Service Requested 02/07/2024 08/09/2025 1 1 Encounter Details Date Type Department Care Team (Latest Contact Info) Description 05/20/2024 9:29 AM EDT Hospital En[place] [address] Sundar Bingham MD [facility] [place] [address] Discharge Disposition: Home Social History Tobacco Use [...] Apply topically. fluticasone propionate (Flonase) 50 mcg/actuation [place], Suspension 08/08/2022 albuteroL 90 mcg/actuation HFA Aerosol Inhaler Every 4 hours. Microgestin 1.5/30, 21, 1.5-30 mg-mcg Tablet TAKE 1 ACTIVE PILL BY MOUTH DAILY, NO WITHDRAWAL BLEED 07/29/2022 documented as of this encounter Plan of Treatment Upcoming Encounters Date Type Department Care Team (Late st Contact Info) Description 07/10/2024 1:30 PM EDT Office [place] [address] Lee Regan MD [facility] [place] [address] documented as of this encounter Procedures Procedure Name Priority Date/Time Associated Diagnosis Comments NM GASTRIC EMPTYING SCAN Routine 05/20/2024 2:23 PM EDT Hypoglycemia documented in this encounter Results * NM Gastric Emptying Scan (05/20/2024 2:23 PM EDT) WORKSTATION ID [id number] [facility] Anatomical Region Laterality Modality Nuclear Medicine Impressions [...] who have questions please contact the health long term care phlebotomist that requested your imaging first. ? Electronically signed by: Emanuel Bennett MD, [facility] ([phone]), at 05/20/2024 2:51 PM Narrative 05/20/2024 2:51 [...] patients who have questions please contactthe health long term care phlebotomist that requested your imaging first. Electronically signed by: Emanuel Bennett MD, [facility]([phone]), at 05/20/2024 2:51 PM Sundar Bingham MD IM [place] ORDERABLES documented in this encounter Visit Diagnoses Not on filedocumented in this encounter Care Teams Bogger Operator Relationship Specialty Start Date End Date Keyla Solorzano DO [address] [place] [address] PCP - General Family Medicine 05/23/23 documented as of this encounter
--- OUTSIDE RECORDS SUMMARY | 2024-06-14 23:15 | XMS_ITS | Encounter Summary ---
Author Organization [facility] [place] [address] Care Team Providers Care Front Desk Admin Name Role Phone Keyla Solorzano DO Primary Care Provider +1- [phone] Encounter Details Date Type Department Care Team (Late st Contact Info) Description 10/17/2023 9:05 PM EST Ancillary Procedure [place] [address] Keyla Solorzano DO [address] [place] [id number] Social History Tobacco Use Types Packs/Day Years [...] 1:30 PM EDT Office [place] [address] Lee Regan MD [facility] [place] [address] documented as of this encounter Procedures Procedure Name Priority Date/Time Associated Diagnosis Comments FILM LIBRARY STORAGE ONLY DX CHEST Routine 10/17/2023 9:00 PM EST documented in this encounter Results * Film Library- Storage Only DX Chest (10/17/2023 9:00 PM EST) Narrative [facility] - 10/17/2023 9:00 PM EST This exam is auto-finalizing. It's purpose is for storage only. Keyla Solorzano DO IMG FILM LIBRARY O RDERABLES Performing Organization Address City/State/[facility] Co de Phone Number [place], [place] documented in this encounter Visit Diagnoses Not on filedocumented in this encounter Care Teams Front Desk Admin Relationship Specialty Start Date End Date Keyla Solorzano DO [address] [place] [address] PCP - General Family Medicine 05/23/23 documented as of this encounter
--- OUTSIDE RECORDS SUMMARY | 2024-06-14 23:15 | XMS_ITS | Encounter Summary ---
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 Keyla Solorzano DO [address] [place] [address] [facility] [place] [facility] Allergy [address] [place] [address] Referral ID Status Reason Start Date Expiration Date V isits Requested Visits Authorized [id number] Denied Consult, Test & Treat PCP Updated and/or Approved 04/05/2024 04/05/2025 6 0 Encounter Details Date Type Department Care Team (Latest Contact Info) Description 04/05/2024 Transcribe Orders eDH Incoming Referrals [phone] Keyla Solorzano DO [address] [place], [place] [id number] POTS (postural orthostatic tachycardia syndrome); Hypoglycemia without diagnosis of diabetes mellitus; Autoimmune disease; Autoimmune disorder of autonomic nervous system; Inflammatory autoimmune disorder Social History Tobacco Use Types Packs/Day Years [...] 1:30 PM EDT Office [place] [address] Lee Regan MD [facility] [place] [address] Scheduled Referrals Name Type Priority Associated Diagnoses Orde r Schedule Referral to Allergy Outpatient Referral Routine POTS (postural orthostatic tachycardia syndrome) Hypoglycemia without diagnosis of diabetes mellitus Autoimmune disease 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
--- OUTSIDE RECORDS SUMMARY | 2024-06-14 23:15 | XMS_ITS | Encounter Summary ---
[place] [address] Care Team Providers Care Events Director Name Role Phone MalikrolfCinthya dunbarne Jaskaran Primary Care Provider +1- [phone] Reason for Referral * Diagnostic Test (Routine) - Closed Specialty Diagnoses / Procedures Referred By Contac t Referred To Contact Cardiology Diagnoses Atypical chest pain Procedures Mobile Flavio Rossi MD [address] [place] [address] [place] [address] [facility] [place] [address] Referral ID Status Reason Start Date Expiration Date V isits Requested Visits Authorized [id number] Closed Specialty Service Requested 10/18/2023 10/17/2024 1 1 Reason for Visit * Diagnostic Test (Routine) - Closed Specialty Diagnoses / Procedures Referred By Contac t Referred To Contact Cardiology Diagnoses Atypical chest pain Procedures Mobile Echo Flavio Hopkins MD [address] [place] [address] [place] [address] [facility] [place] [address] Referral ID Status Reason Start Date Expiration Date V isits Requested Visits Authorized [id number] Closed Specialty Service Requested 10/18/2023 10/17/2024 1 1 Encounter Details Date Type Department Care Team (Latest Contact Info) Description 10/18/2023 9:50 AM EST - 10/18/2023 11:59 PM EST Hospital Encounter [place] [address] Flavio Hopkins MD [address] [place] [address] [place] [address] Atypical chest pain Discharge Disposition: Home Social History Tobacco Use [...] Apply topically. fluticasone propionate (Flonase) 50 mcg/actuation [place], Suspension 08/08/2022 albuteroL 90 mcg/actuation HFA Aerosol Inhaler Every 4 hours. Microgestin 1.5/30, 21, 1.5-30 mg-mcg Tablet TAKE 1 ACTIVE PILL BY MOUTH DAILY, NO WITHDRAWAL BLEED 07/29/2022 documented as of this encounter Plan of Treatment Upcoming Encounters Date Type Department Care Team (Late st Contact Info) Description 07/10/2024 1:30 PM EDT Office [place] [address] Lee Regan MD [facility] [place] [address] documented as of this encounter Procedures Procedure Name Priority Date/Time Associated Diagnosis Comments ECHO COMPLETE Routine 10/18/2023 11:02 AM EST Atypical chest pain documented in this encounter Results * ECHO COMPLETE (10/18/2023 11:02 AM EST) Anatomical Region Laterality Modality Other 10/18/2023 7:53 AM EST Narrative 10/18/2023 11:06 AM EST 1 [place] [address] ? Echocardiogram Report Name: LESLIE HORAN ? Study Date: 10/18/2023 07:53 AMBP: 117/69 mmHg ? Patient Location: 4A : 1995 ? Height: 157 cm ? Account: [id number] Age: 28 yrs ? Weight: 70 kg Gender: Female ?BSA: 1.7 m2 Ordering Physician: FLAVIO HOPKINS Referring Physician: FLAVIO HOPKINS Reason For Study: Chest pain, covid Exam Location: [facility]. Interpretation Summary Left ventricle is of normal size. Wall thickness is normal. Left ventricular size and systolic function is normal. The left ventricular ejection fraction is 58% by Rivera's biplane. The right ventricle is of normal size. Right ventricular systolic function is normal. Procedure Complete-[id number]. Satisfactory quality. Left Ventricle Left ventricle is of normal size. Wall thickness is normal. Left ventricular size and systolic function is normal. The left ventricular ejection fraction is 58% by Rivera's biplane. There are no segmental wall motion abnormalities. Right Ventricle The right ventricle is of normal size. Right ventricular systolic function is normal. Left Atrium The left atrium is normal. No abnormality of the interatrial septum is identified. Right Atrium The right atrium is normal. Aortic Valve The aortic valve is tricuspid. There is no aortic stenosis. There is no aortic regurgitation. Mitral Valve The mitral valve is structurally normal. There is trace mitral regurgitation. Tricuspid Valve The tricuspid valve is structurally normal. There is trace tricuspid regurgitation. Pulmonic Valve The pulmonic valve appears to be structurally and functionally normal. Great Arteries The aortic root is of normal size. No abnormalities are identified. No abnormalities of the pulmonary artery are identified. Venous Inferior vena cava is normal in size. Inferior vena cava collapse greater than 50% with respiration. Pericardium/Pleural The pericardium appears normal. Hemodynamics Pulmonary artery hypertension could not be assessed due to inadequate tricuspid regurgitation jet. ? 2D Measurements ? Volumes ?IVSd: 0.73 cm ?LA Volume Index: ?LVIDd: 4.0 cm ?LVIDs: 2.7 cm ?14.1 ml/m2 ? SV(LVOT): 66.1 ml ?LVPWd: 0.73 cm ? LV Stroke Volume: 66.1 ml ?LV mass(C)d: 84.2 grams ?SI(LVOT): 38.5 ml/m2 ?LV mass(C)dI: 49.1 grams/m2 ?Ao root diam: 2.4 cm ?Ao root diam index: 1.4 ?asc Aorta Diam: 2.4 cm ?LVOT diam: 1.9 cm ?TAPSE_phl: 2.5 cm Doppler ?3D/Strain/TomTec LV V1 VTI: 23.0 cm ?LV GLS (S3P): -16.7 % LVOT max Velocity: 113.4 cm/sec Ao V2 VTI: 26.5 cm Ao Max: 122.4 cm/sec Ao valve max: 6.0 mmHg Ao valve mean: 3.4 mmHg MV E max rayshawn: 95.1 cm/sec MV A max rayshawn: 68.6 cm/sec MV E/A: 1.4 MV dec time: 0.16 sec MV mean P.6 mmHg Lat Peak E' Rayshawn: 13.6 cm/sec E/ e' (lat): 7.0 Med Peak E' Rayshawn: 11.5 cm/sec E/e' (med): 8.2 E/e' Average: 7.6 TIEN(I,D): 2.5 cm2 Dimensionless index Aov: 0.87 Procedure Note Haile Vidal MD - 10/18/2023 1 [place] [id number] Echocardiogram Report Name: LESLIE HORAN Study Date:10/18/2023 07:53 AMBP: 117/69 mmHg Patient Location: : 1995 Height: 157 cm Account: [id number] Age: 28 yrs Weight: 70 kg Gender: Female BSA: 1.7 m2 Ordering Physician: FLAVIO HOPKINS Referring Physician: FLAVIO HOPKINS Reason For Study: Chest pain, covid Exam Location: [facility]. Interpretation Summary Left ventricle is of normal size. Wall thickness is normal. Leftventricular size and systolic function is normal. The left ventricular ejection fraction is58% by Rivera's biplane. The right ventricle is of normal size. Right ventricular systolic functionis normal. Procedure Complete-[id number]. Satisfactory quality. Left Ventricle Left ventricle is of normal size. Wall thickness is normal. Leftventricular size and systolic function is normal. The left ventricular ejection fraction is58% by Rivera's biplane. There are no segmental wall motion abnormalities. Right Ventricle The right ventricle is of normal size. Right ventricular systolic functionis normal. Left Atrium The left atrium is normal. No abnormality of the interatrial septum isidentified. Right Atrium The right atrium is normal. Aortic Valve The aortic valve is tricuspid. There is no aortic stenosis. There is noaortic regurgitation. Mitral Valve The mitral valve is structurally normal. There is trace mitralregurgitation. Tricuspid Valve The tricuspid valve is structurally normal. There is trace tricuspid regurgitation. Pulmonic Valve The pulmonic valve appears to be structurally and functionally normal. Great Arteries The aortic root is of normal size. No abnormalities are identified. No abnormalities of the pulmonary artery are identified. Venous Inferior vena cava is normal in size. Inferior vena cava collapse greaterthan 50% with respiration. Pericardium/Pleural The pericardium appears normal. Hemodynamics Pulmonary artery hypertension could not be assessed due to inadequatetricuspid regurgitation jet. 2D Measurements Volumes IVSd: 0.73 cm LA VolumeIndex: LVIDd: 4.0 cm LVIDs: 2.7 cm 14.1 ml/m2 SV(LVOT): 66.1ml LVPWd: 0.73 cm LV Stroke Volume:66.1 ml LV mass(C)d: 84.2 grams SI(LVOT): 38.5ml/m2 LV mass(C)dI: 49.1 grams/m2 Ao root diam: 2.4 cm Ao root diam index: 1.4 asc Aorta Diam: 2.4 cm LVOT diam: 1.9 cm TAPSE_phl: 2.5 cm Doppler 3D/Strain/TomTec LV V1 VTI: 23.0 cm LV GLS (S3P): -16.7 % LVOT max Velocity: 113.4 cm/sec Ao V2 VTI: 26.5 cm Ao Max: 122.4 cm/sec Ao valve max: 6.0 mmHg Ao valve mean: 3.4 mmHg MV E max rayshawn: 95.1 cm/sec MV A max rayshawn: 68.6 cm/sec MV E/A: 1.4 MV dec time: 0.16 sec MV mean P.6 mmHg Lat Peak E' Rayshawn: 13.6 cm/sec E/ e' (lat): 7.0 Med Peak E' Rayshawn: 11.5 cm/sec E/e' (med): 8.2 E/e' Average: 7.6 TIEN(I,D): 2.5 cm2 Dimensionless index Aov: 0.87 Flavio Hopkins MD ECHO ORDERABLES documented in this encounter Visit Diagnoses Diagnosis Atypical chest pain Other chest pain documented in this encounter Care Teams Events Director Relationship Specialty Start Date End Date Keyla Solorzano DO [address] [place] [address] PCP - General Family Medicine 05/23/23 documented as of this encounter
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
--- OUTSIDE RECORDS SUMMARY | 2024-06-14 23:15 | XMS_ITS | Encounter Summary ---
Author Organization [facility] [address] Care Team Providers Care Banquet Director Name Role Phone Jeanine Keylaarmida Jessica DO Primary Care Provider +1- [phone] Reason for Referral * Diagnostic Test (Routine) - Closed Specialty Diagnoses / Procedures Referred By Contac t Referred To Contact Radiology Diagnoses Hypoglycemia Procedures NM Gastric Emptying Scan Shira Leach PA [facility] [place] [address] [place] [address] Referral ID Status Reason Start Date Expiration Date V isits Requested Visits Authorized [id number] Closed Specialty Service Requested 02/07/2024 08/09/2025 1 1 Encounter Details Date Type Department Care Team (Late st Contact Info) Description 02/07/2024 Orders [place] [address] Shira Leach PA [facility] [place] [address] Hypoglycemia Social History Tobacco Use Types Packs/Day Years [...] 1:30 PM EDT Office Visit [place] [address] Lee Regan MD [facility] [place] [address] Scheduled Orders Name Type Priority Associated Diagnoses Orde r Schedule XR Fluoro Upper GI Series Imaging Routine Hypoglycemia Expected: 02/07/2024, Expires: 08/08/2024 documented as of this encounter Results * NM Gastric Emptying Scan (05/20/2024 2:23 PM EDT) WORKSTATION ID [id number] RAD Anatomical Region Laterality Modality Nuclear Medicine Impressions [...] who have questions please contact the health child care giver that requested your imaging first. ? Narrative [...] patients who have questions please contactthe health child care giver that requested your imaging first. Sundar Bingham MD IM NM ORDERABLES documented in this encounter Visit Diagnoses Diagnosis Hypoglycemia Hypoglycemia, unspecified Hypoglycemia Hypoglycemia, unspecified documented in this encounter Care Teams Banquet Director Relationship Specialty Start Date End Date Keyla Solorzano DO [address] [place] [address] PCP - General Family Medicine 05/23/23 documented as of this encounter
--- OUTSIDE RECORDS SUMMARY | 2024-06-14 23:15 | XMS_ITS | Encounter Summary ---
Author Organization [facility] [place] [address] Care Team Providers Care Certified Physical Therapist Assistant Name Role Phone Keyla Solorzano Primary Care Provider +1- [phone] Encounter Details Date Type Department Care Team (Late st Contact Info) Description 10/18/2023 Telephone Cardiology at [address] [place] [address] Chela Rivera APRN [facility] [place] [address] Social History Tobacco Use Types Packs/Day Years [...] encounter Miscellaneous Notes * Telephone Encounter - Chela Rivera APRN - 10/18/2023 3:33 PM EST Images from the original note were not included. 10/18/2023 3:33 PM Call received from Antonieta Tapia MD for update on patient. Please refer to Dr. Evangelista's telephone noted dated 10/17 for H+P details. TTE 10/18/2023 as below: Interpretation Summary Left ventricle is of normal size. Wall thickness is normal. Left ventricular size and systolic function is normal. The left ventricular ejection fraction is 58% by Rivera's biplane. The right ventricle is of normal size. Right ventricular systolic function is normal. HS trop (ULN 60) 55,62, <50. EKG with sinus tachyardia, no ischemic changes. Chest pain has completely resolved after IV toradol. Plan to discharge her home with conservative treatment for COVID. Chela Rivera APRN Cardiovascular Medicine 10/18/2023 documented in this encounter Plan of Treatment Upcoming Encounters Date Type Department Care Team (Late st Contact Info) Description 07/10/2024 1:30 PM EDT Office Visit [place] [address] Lee Regan MD [facility] [place] [address] documented as of this encounter Visit Diagnoses Not on filedocumented in this encounter Care Teams Certified Physical Therapist Assistant Relationship Specialty Start Date End Date Keyla Solorzano DO [address] [place] [address] PCP - General Family Medicine 05/23/23 documented as of this encounter
--- OUTSIDE RECORDS SUMMARY | 2024-06-14 23:15 | XMS_ITS | Encounter Summary ---
Author Organization [facility] Address [facility] [place] [address] Care Team Providers Care Oracle Soa Architect Name Role Phone Keyla Solorzano Primary Care Provider +1- [phone] Reason for Referral * Consultation (Routine) - Authorized Specialty Diagnoses / Procedures Referred By Lilly fry Referred To Contact Otolaryngology Diagnoses Chronic frontal sinusitis THIS YOUNG LADY SEEMS TO HAVE SOME FORM OF IMMUNODEFICIENCY, ALTHOUGH IT HAS NOT BEEN DEFINED, AND DOES HAVE MULTIPLE ALLERGIES INCLUDING TO LACTOSE. 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 THIS IS BEING MANAGED BY NEUROLOGY. SHE HAD AN MRI OF HER HEAD A RESULT OF THE TRIGEMINAL NEURALGIA AND IT SHOWS COMPLETE OPACIFICATION OF HER RIGHT FRONTAL SINUS. PLEASE EVAL AND TREAT. Reinier Goerge MD [address] [place] [address] [place] [address] Lee Regan MD [facility] [place] [address] Referral ID Status Reason Start Date Expiration Date Visits Requested Visits Authorized [id number] Authorized Consult, Test & Treat PCP Updated and/or Approved 02/12/2024 02/11/2025 6 6 Encounter Details Date Type Department Care Team (Late st Contact Info) Description 02/12/2024 Transcribe Orders eDH Incoming Referrals [phone] Reinier George MD [address] [place] [address] [place] [address] Chronic frontal sinusitis Social History Tobacco Use Types Packs/Day Years [...] 1:30 PM EDT Office [place] [address] Lee Regan MD [facility] [place] [address] Scheduled Referrals Name Type Priority Associated Diagnoses Orde r Schedule Referral to ENT Outpatient Referral Routine Chronic frontal sinusitis Ordered: 02/12/2024 documented as of this encounter Visit Diagnoses Diagnosis Chronic frontal sinusitis documented in this encounter Care Teams Oracle Soa Architect Relationship Specialty Start Date End Date Keyla Solorzano DO [address] [facility] [place] [address] PCP - General Family Medicine 05/23/23 documented as of this encounter
--- OUTSIDE RECORDS SUMMARY | 2024-06-14 23:15 | XMS_ITS | Encounter Summary ---
Author Organization [facility] [place] [address] Care Team Providers Care Drafter Commercial Name Role Phone Jeanine Keylaarmida Jessica DO Primary Care Provider +1- [phone] Reason for Visit * Diagnostic Test (Routine) - Closed Specialty Diagnoses / Procedures Referred By Contac t Referred To Contact Radiology Diagnoses Hypoglycemia Procedures NM Gastric Emptying Scan Shira Leach PA [facility] [place] [address] [place] [address] Referral ID Status Reason Start Date Expiration Date V isits Requested Visits Authorized [id number] Closed Specialty Service Requested 02/07/2024 08/09/2025 1 1 Encounter Details Date Type Department Care Team (Latest Contact Info) Description 05/20/2024 9:30 AM EDT - 05/20/2024 11:59 PM EDT Hospital En[place] [address] Sundar Bingham MD [facility] [place] [address] Discharge Disposition: Home Social History [...] Apply topically. fluticasone propionate (Flonase) 50 mcg/actuation [place], Suspension 08/08/2022 albuteroL 90 mcg/actuation HFA Aerosol Inhaler Every 4 hours. Microgestin 1.5/30, 21, 1.5-30 mg-mcg Tablet TAKE 1 ACTIVE PILL BY MOUTH DAILY, NO WITHDRAWAL BLEED 07/29/2022 documented as of this encounter Plan of Treatment Upcoming Encounters Date Type Department Care Team (Late st Contact Info) Description 07/10/2024 1:30 PM EDT Office [place] [address] Lee Regan MD [facility] [place] [address] documented as of this encounter Procedures Procedure Name Priority Date/Time Associated Diagnosis Comments NM GASTRIC EMPTYING SCAN Routine 05/20/2024 2:23 PM EDT Hypoglycemia documented in this encounter Results * NM Gastric Emptying Scan (05/20/2024 2:23 PM EDT) WORKSTATION ID [id number] [facility] Anatomical Region Laterality Modality Nuclear Medicine Impressions [...] who have questions please contact the health account executive healthcare that requested your imaging first. ? Electronically signed by: Emanuel Bennett MD, [facility] ([phone]), at 05/20/2024 2:51 PM Narrative 05/20/2024 2:51 [...] patients who have questions please contactthe health account executive healthcare that requested your imaging first. Electronically signed by: Emanuel Bennett MD, [facility]([phone]), at 05/20/2024 2:51 PM Sundar Bingham MD IM NM ORDERABLES documented in this encounter Visit Diagnoses Not on filedocumented in this encounter Care Teams Drafter Commercial Relationship Specialty Start Date End Date Keyla Solorzano DO [address] [place] [address] PCP - General Family Medicine 05/23/23 documented as of this encounter
--- OUTSIDE RECORDS SUMMARY | 2024-06-14 23:15 | XMS_ITS | Encounter Summary ---
[place] [address] Care Team Providers Care Figure Skater Name Role Phone Keyla Solorzano DO Primary Care Provider +1- [phone] Reason for Referral * Consultation (Routine) - Denied Specialty Diagnoses / Procedures Referred By Contac t Referred To Contact Rheumatology Diagnoses Disorder involving the immune mechanism Other specified disorders involving the immune mechanism, not elsewhere classified Postural orthostatic tachycardia syndrome (POTS) EVAL AND TREAT IMMUNE DISORDER INFLAMMATORY AUTOIMMUNE DISORDER POTS -ON 04/09/24 @09:58 [facility] WROTE TO KEYLA SOLORZANO- Margaret SPOKE W/ STEVE AT [facility]. SHE SAID RHEUM WOULD HANDLE THE AUTOIMMUNE ISSUES SO THIS REFERRAL SHOULD BE SENT TO [facility]. APPRECIATE EVAL OF POSSIBLE SYSTEMIC INFLAMMATORY CONDITION ASSOCIATED W/ HYPOGLYCEMIA, LOW TSH (WNL FT4). PT IS WORKING W/ [employer] RE: HYPOGLUCEMIA, USING CGM.. BUT NO EXPLANATIONS RE: ETIOLOGY OR ASSOCIATION W/ FREQUENT ILLNESSES.. Keyla Solorzano DO [address] [place] [address] [facility] Rheumatology [address] [place] [phone] Referral ID Status Reason Start Date Expiration Date V isits Requested Visits Authorized [id number] Denied Consult, Test & Treat PCP Updated and/or Approved 04/09/2024 04/09/2025 6 0 Encounter Details Date Type Department Care Team (Latest Contact Info) Description 04/25/2024 Transcribe Orders eDH Incoming Referrals [phone] Keyla Solorzano DO [address] [address] Disorder involving the immune mechanism; Other specified disorders involving the immune mechanism, not elsewhere classified; Postural orthostatic tachycardia syndrome (POTS) Social History Tobacco Use Types Packs/Day Years [...] 1:30 PM EDT Office [place] [address] Lee Regan MD [facility] [place] [address] Scheduled Referrals Name Type Priority Associated Diagnoses Orde r Schedule Referral to Rheumatology Outpatient Referral Routine Disorder involving the immune mechanism Other specified disorders involving the immune mechanism, not elsewhere classified Postural orthostatic tachycardia syndrome (POTS) Ordered: 04/25/2024 documented as of this encounter Visit Diagnoses Diagnosis Disorder involving the immune mechanism Unspecified disorder of immune mechanism Other specified disorders involving the immune mechanism, not elsewhere classified Postural orthostatic tachycardia syndrome (POTS) documented in this encounter Care Teams Figure Skater Relationship Specialty Start Date End Date Keyla Solorzano DO [address] [place] [address] PCP - General Family Medicine 05/23/23 documented as of this encounter
--- OUTSIDE RECORDS SUMMARY | 2024-06-14 23:15 | XMS_ITS | Clinical Summary ---
[place] [address] Care Team Providers Care Barkeep Name Role Phone JeanineCinthyane Jaskaran Primary Care Provider +1- [phone] Allergies Active Allergy Reactions Criticality Noted Date Comments Lactose 08/09/2022 Lavender 08/09/2022 Medications Medication Sig Dispensed Refills Start Date End Date Status fluticasone propionate (Flonase) 50 mcg/actuation [place], Suspension 08/08/2022 Active albuteroL 90 mcg/actuation HFA Aerosol Inhaler Every 4 hours. Activ e Microgestin 1.5/30, 21, 1.5-30 mg-mcg Tablet TAKE 1 ACTIVE PILL BY MOUTH DAILY, NO WITHDRAWAL BLEED 07/29/2022 Active Dexcom G7 Sensor Device CHANGE EVERY 10 DAYS DIRECTED 06/05/2023 Active diclofenac (Voltaren) 1 % Gel Apply topically. Active Active Problems No known active problems Encounters Date Type Department Care Team Description 05/20/2024 9:30 AM EDT - 05/20/2024 11:59 PM EDT Hospital Encounter [place] [address] Sundar Bingham MD Discharge Disposition: Home 05/20/2024 9:30 AM EDT - 05/20/2024 11:59 PM EDT Hospital Encounter [place] [address] Sundar Bingham MD Discharge Disposition: Home 05/20/2024 9:29 AM EDT Hospital Encounter [place] [address] Sundar Bingham MD Discharge Disposition: Home 05/20/2024 9:29 AM EDT Hospital Encounter Nuclear Medicine at [place] [phone] Sundar Bingham MD Discharge Disposition: Home 05/20/2024 9:29 AM EDT Hospital Encounter [place] [address] Sundar Bingham MD Hypoglycemia Discharge Disposition: Home 05/20/2024 Travel 04/25/2024 Transcribe Orders eD Incoming Referrals [phone] Keyla Solorzano DO Disorder involving the immune mechanism; Other specified disorders involving the immune mechanism, not elsewhere classified; Postural orthostatic tachycardia syndrome (POTS) 04/25/2024 Transcribe Orders eD Incoming Referrals [phone] Keyla Solorzano DO 04/09/2024 Telephone [place] [address] Estee Lloyd 04/05/2024 Transcribe Orders eD Incoming Referrals [phone] Keyla Solorzano DO POTS (postural orthostatic tachycardia syndrome); Hypoglycemia, unspecified; Systemic involvement of connective tissue; Other disorders of autonomic nervous system; Other specified disorders involving the immune mechanism, not elsewhere classified 04/05/2024 Transcribe Orders eD Incoming Referrals [phone] Keyla Solorzano DO POTS (postural orthostatic tachycardia syndrome); Hypoglycemia without diagnosis of diabetes mellitus; Autoimmune disease; Autoimmune disorder of autonomic nervous system; Inflammatory autoimmune disorder 03/18/2024 Notes [place] [address] Shira Leach PA from Last 3 Months Family History Medical History Relation Comments Diabetes Father Diabetes Maternal Grandmother Diabetes Paternal Aunt Diabetes Paternal Grandmother Relation Status Comments Father Maternal Grandmother Paternal Aunt Paternal Grandmother Social History Tobacco Use Types Packs/Day Years Used Date Smoking Tobacco: Never Smokeless Tobacco: Never Tobacco Cessation:Counseling Given: Not Answered Alcohol Use Standard Drinks/Week Comments Not Currently 0 (1 standard drink = 0.6 oz pur e alcohol) Sex and Gender Information Value Date Recorded Sex Assigned at Not on file Gender Identity Not on file Sexual Orientation Not on file Last Filed Vital Signs Vital Sign Reading Time Taken Comments Blood Pressure - - Pulse - - Temperature - - Respiratory Rate - - Oxygen Saturation - - Inhaled Oxygen Concentration - - Weight 67.1 kg (148 lb) 06/09/2023 9:06 AM EDT Height 157.5 cm (5' 2) 06/09/2023 9:06 AM EDT Body Mass Index 27.07 06/09/2023 9:06 AM EDT Plan of Treatment Upcoming Encounters Date Type Department Care Team (Late st Contact Info) Description 07/10/2024 1:30 PM EDT Office [place] [address] Lee Regan MD [facility] [place] [address] Health Maintenance Due Date Last Done Comments HPV vaccine (1 - 3-dose series) 2012 HIV screen 2015 Hepatitis C Screening 2015 Hepatitis B vaccine (0-59 yrs) (1) 2016 Tdap adult 2016 Tetanus vaccine 2016 PAP Smear 2018 Covid-19 Vaccine ( - 2022- season) 2023 Influenza (Flu) vaccine (1 o f 1 - Influenza standard series) 07/28/2024 Procedures Procedure Name Priority Date/Time Associated Diagnosis Comments NM GASTRIC EMPTYING SCAN Routine 05/20/2024 2:23 PM EDT Hypoglycemia LAB SCAN 04/16/2024 12:00 AM EDT LAB SCAN 04/05/2024 12:00 AM EDT from Last 3 Months Results * NM Gastric Emptying Scan (05/20/2024 2:23 PM EDT) [facility] WORKSTATION ID [id number] [facility] Anatomical Region Laterality Modality Nuclear Medicine Impressions [...] who have questions please contact the health home health care physician that requested your imaging first. ? Narrative [...] patients who have questions please contactthe health home health care physician that requested your imaging first. Sundar Bingham MD G NM ORDERABLES * Scan Doc: Lab (04/16/2024 12:00 AM EDT) Only the most recent of2 resultswithin the time period is included. Narrative 04/16/2024 12:00 AM EDT Ordered by an unspecified provider. Scanning Provider MEDIA MGR SCAN EXT O RDR/RSLT from Last 3 Months Care Teams Barkeep Relationship Specialty Start Date End Date Keyla Solorzano DO [address] [place] [place] [address] PCP - General Family Medicine 05/23/23
--- OUTSIDE RECORDS SUMMARY | 2024-06-14 23:15 | XMS_ITS | Encounter Summary ---
[place] [address] Care Team Providers Care Bobbin Winder Tender Name Role Phone Keyla Solorzano DO Primary Care Provider +1- [phone] Encounter Details Date Type Department Care Team (Latest Contact Info) Description 05/20/2024 Travel Social History Tobacco Use Types Packs/Day [...] 1:30 PM EDT Office [place] [address] Lee Regan MD [facility] [place] [address] documented as of this encounter Visit Diagnoses Not on filedocumented in this encounter Care Teams Bobbin Winder Tender Relationship Specialty Start Date End Date Keyla Solorzano DO [address] [place] [address] PCP - General Family Medicine 05/23/23 documented as of this encounter
--- OUTSIDE RECORDS SUMMARY | 2024-06-14 23:15 | XMS_ITS | Encounter Summary ---
[place] [address] Care Team Providers Care Information Services Manager Name Role Phone Keyla Solorzano DO Primary Care Provider +1- [phone] Reason for Referral * Consultation (Routine) - Duplicate Referral Specialty Diagnoses / Procedures Referred By Contac t Referred To Contact Endocrinology Diagnoses Disorder of carbohydrate metabolism, unspecified Other hypoglycemia Hypoglycemia, unspecified Keyla Solorzano DO [address] [place] [address] [facility] Endocrinology [address] [place] [phone] Referral ID Status Reason Start Date Expiration Date Visits Requested Visits Authorized [id number] Duplicate Referral Consult, Test & Treat 06/01/2023 05/31/2024 6 6 Encounter Details Date Type Department Care Team (Latest Contact Info) Description 06/01/2023 Transcribe Orders eDH Incoming Referrals [phone] Keyla Solorzano DO [address] [place] [address] Disorder of carbohydrate metabolism, unspecified; Other hypoglycemia; Hypoglycemia, unspecified Social History Tobacco Use Types Packs/Day Years [...] 1:30 PM EDT Office [place] [address] Lee Regan MD [facility] [place] [address] Scheduled Referrals Name Type Priority Associated Diagnoses Orde r Schedule Referral to Endocrinology Outpatient Referral Routine Disorder of carbohydrate metabolism, unspecified Other hypoglycemia Hypoglycemia, unspecified Ordered: 06/01/2023 documented as of this encounter Visit Diagnoses Diagnosis Disorder of carbohydrate metabolism, unspecified Other hypoglycemia Hypoglycemia, unspecified documented in this encounter Care Teams Information Services Manager Relationship Specialty Start Date End Date Keyla Solorzano DO [address] [place] [address] PCP - General Family Medicine 05/23/23 documented as of this encounter
--- OUTSIDE RECORDS SUMMARY | 2024-06-14 23:15 | XMS_ITS | Encounter Summary ---
Author Organization [facility] [place] [address] Care Team Providers Care Petroleum Geology Faculty Member Name Role Phone Keyla Solorzano DO Primary Care Provider +1- [phone] Encounter Details Date Type Department Care Team (Late st Contact Info) Description 01/15/2024 Ancillary Procedure [place] [address] Keyla Solorzano, [address] [place], [place] [address] Social History Tobacco Use Types Packs/Day Years [...] 1:30 PM EDT Office [place] [address] Lee Regan MD [facility] [address] documented as of this encounter Procedures Procedure Name Priority Date/Time Associated Diagnosis Comments FILM LIBRARY STORAGE ONLY MR HEAD Routine 01/15/2024 12:00 AM EST documented in this encounter Results * Film Library- Storage Only MR Head (01/15/2024 12:00 AM EST) Narrative [facility] - 02/21/2024 3:42 PM EDT This exam is auto-finalizing. It's purpose is for storage only. Keyla Solorzano DO IMG FILM LIBRARY O RDERABLES Performing Organization Address City/State/[facility] Co de Phone Number [place], [place] documented in this encounter Visit Diagnoses Not on filedocumented in this encounter Care Teams Petroleum Geology Faculty Member Relationship Specialty Start Date End Date Keyla Solorzano DO [address] [place] [address] PCP - General Family Medicine 05/23/23 documented as of this encounter
--- OUTSIDE RECORDS SUMMARY | 2024-06-14 23:15 | XMS_ITS | Encounter Summary ---
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 Hypoglycemia, unspecified Slow transit constipation Nausea possible gastroparesis Keyla Solorzano DO [address] [place] [address] [facility] G[facility] [address] [place] [address] Referral ID Status Reason Start Date Expiration Date Visits Requested Visits Authorized [id number] Authorized Consult, Test & Treat PCP Updated and/or Approved 10/30/2023 10/29/2024 6 6 Encounter Details Date Type Department Care Team (Latest Contact Info) Description 10/30/2023 Transcribe Orders eDH Incoming Referrals [phone] Keyla Solorzano DO [address] [place] [address] Disorder of carbohydrate metabolism; Iatrogenic hyperinsulinism; Hypoglycemia, unspecified; Slow transit constipation; Nausea Social History Tobacco Use Types Packs/Day Years [...] 1:30 PM EDT Office Visit [place] [address] Lee Regan MD [facility] [place] [address] Scheduled Referrals Name Type Priority Associated Diagnoses Order Schedule Referral to Gastroenterology Outpatient Referral Routine 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
--- OUTSIDE RECORDS SUMMARY | 2024-06-14 23:15 | XMS_ITS | Encounter Summary ---
Author Organization [facility] Address [facility] [place] [address] Care Team Providers Care Utility Driver Name Role Phone Keyla Solorzano Primary Care Provider +1- [phone] Encounter Details Date Type Department Care Team (Late st Contact Info) Description 10/17/2023 Telephone Cardiology at [address] [address] Zia Evangelista MD [facility] [place] [address] Social History Tobacco Use Types Packs/Day Years [...] encounter Miscellaneous Notes * Telephone Encounter - Zia Evangelista MD - 10/17/2023 10:36 PM EST Telephone Triage Note Initial Contact Date: 10/17/2023 Initial Contact Time: 21:17 Patient Location: [facility] Presenting Symptoms per OSH: 28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 Subsequently she had new intermittent chest discomfort, which was non-exertional, non- pleuritic, non-positional, non-radiating. Today, the episodes became more frequent so she presented to the emergency room for further evaluation. Endorses some mild exertional shortness of breath (unchanged since leonor Covid-19 in 08/2022, which required hospitalization and left her with residual tachycardia for about six months post-Covid that ultimately resolved, with interimstress testing as part of the workup negative for ischemia) and nausea, but no syncope, palpitations, orthopnea, PND, or edema. No fevers, chills, vomiting, or diarrhea. Afebrile, normotensive, HR 110-130s, saturating normally on room air Pertinent Diagnostic Findings: Hstrop 55 -> 62 CBC significant for leukocytosis (WBC 14) Electrolytes, BNP wnl CRP 12 Lactate normal CTPE showed no pulmonary embolism, no pneumonia, and no effusion EKG showed sinus tachycardia Plan: - Discussed that there is low likelihood for acute coronary syndrome given her young age, atypical presentation, lack of cardiovascular risk factors, no ischemic changes on EKG, and prior negative stress testing - Troponin elevation and sinus tachycardia (which is a physiologic response) are likely in the setting of Covid-19 positive status. It is also reassuring that there was no evidence of pulmonary embolism on imaging. - Transthoracic echocardiogram to rule out any significant pericardial effusions, LV dysfunction, or other structural heart disease - Check ESR as further confirmation of inflammatory state (probably from Covid) - Advised on addressing underlying cause, i.e. conservative management for Covid-19 - Based on current objective data and lack of bed capacity at [facility], no need for transfer at this time - If any significant changes in clinical status, provider will reach out to us again for reevaluation Above recommendations/plans are based on my conversation with the referring provider. I have not personally interviewed or examined this patient. Zia Evangelista MD Audit Associate documented in this encounter Plan of Treatment Upcoming Encounters Date Type Department Care Team (Late st Contact Info) Description 07/10/2024 1:30 PM EDT Office [place] [address] Lee Regan MD [facility] [place] [address] documented as of this encounter Visit Diagnoses Not on filedocumented in this encounter Care Teams Utility Driver Relationship Specialty Start Date End Date Keyla Solorzano DO [address] [place] [address] PCP - General Family Medicine 05/23/23 documented as of this encounter
--- OUTSIDE RECORDS SUMMARY | 2024-06-14 23:15 | XMS_ITS | Encounter Summary ---
Author Organization [facility] [address] Care Team Providers Care Forming Machine Upkeep Mechanic Name Role Phone Jocelyn Dhillon APRN Primary Care Provider [phone] Reason for Referral * Consultation (Routine) - Closed Specialty Diagnoses / Procedures Referred By Contstephany t Referred To Contact Dermatology Diagnoses Melanocytic nevus, unspecified location Valerie Morrison APRN [address] [place] [address] [facility] Dermatology [address] [place] [address] Referral ID Status Reason Start Date Expiration Date V isits Requested Visits Authorized [id number] Closed Consult, Test & Treat PCP Updated and/or Approved 07/29/2022 07/29/2023 6 6 Encounter Details Date Type Department Care Team (Late st Contact Info) Description 07/29/2022 Transcribe Orders eDH Incoming Referrals [phone] Valerie Morrison APRN [address] [place], [place] [id number] Melanocytic nevus, unspecified location Social History Tobacco Use Types Packs/Day Years Used Date Smoking Tobacco: Never Assessed Sex and Gender Information Value Date Recorded Sex Assigned at Not on file Gender Identity Not on file Sexual Orientation Not on file documented as of this encounter Plan of Treatment Upcoming Encounters Date Type Department Care Team (Late st Contact Info) Description 07/10/2024 1:30 PM EDT Office [place] [address] Lee Regan MD [facility] [place] [address] Scheduled Referrals Name Type Priority Associated Diagnoses Orde r Schedule Referral to Dermatology Outpatient Referral Routine Melanocytic nevus, unspecified location Ordered: 07/29/2022 documented as of this encounter Visit Diagnoses Diagnosis Melanocytic nevus, unspecified location documented in this encounter Care Teams Forming Machine Upkeep Mechanic Relationship Specialty Start Date End Date Griffinwalter GAUDENCIO Banks [address] [place] [address] PCP - General Family Medicine 07/29/22 05/22/23 documented as of this encounter
--- OUTSIDE RECORDS SUMMARY | 2024-06-14 23:15 | XMS_ITS | Encounter Summary ---
Author Organization [facility] [place] [address] Care Team Providers Care Lumber Press Operator Name Role Phone Keyla Solorzano DO Primary Care Provider [phone]- [phone] Encounter Details Date Type Department Care Team (Late st Contact Info) Description 04/25/2024 Transcribe Orders eDH Incoming Referrals [phone] Keyla Solorzano DO [address] [place], [place] [id number] Social History Tobacco Use Types Packs/Day Years [...] 1:30 PM EDT Office [place] [address] Lee Regan MD [facility] [place] [address] documented as of this encounter Visit Diagnoses Not on filedocumented in this encounter Care Teams Lumber Press Operator Relationship Specialty Start Date End Date Keyla Solorzano DO [address] [place], [place] [address] PCP - General Family Medicine 05/23/23 documented as of this encounter
--- OUTSIDE RECORDS SUMMARY | 2024-06-14 23:15 | XMS_ITS | Encounter Summary ---
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 Hypoglycemia, unspecified Slow transit constipation Nausea possible gastroparesis Keyla Solorzano DO [address] [place] [address] [facility] Gastro [address] [place] [address] Referral ID Status Reason Start Date Expiration Date Visits Requested Visits Authorized [id number] Authorized Consult, Test & Treat PCP Updated and/or Approved 10/30/2023 10/29/2024 6 6 Encounter Details Date Type Department Care Team (Late st Contact Info) Description 02/02/2024 4:00 PM EST TH Visit (TeleHealth) [place] [address] Shira Leach PA [facility] [place] [address] Hypoglycemia Social History Tobacco Use [...] Progress Notes * Shira Leach PA - 02/02/2024 4:00 PM EST Images from the original note were not included. GASTROENTEROLOGY TELEHEALTH PROGRAM - NEW PATIENT VISIT Chief Complaint: Shira Cheatham is a 28 y.o. patient referred for consultation by Dr. Solorzano for dumping syndrome History of Present Illness: 28-year-old female seen in consultation to discuss possible dumping syndrome. She was recently diagnosed with severe hyporglycemia and is seen by [facility] in [facility]. She tells me they are a bit perplexed by her case since she does not quite meet the criteria for type 1 diabetes but has severe hypoglycemia and the rest the question of dumping syndrome. She denies significant GI side effects. She denies significant change in bowel pattern. He tells meduring childhood she tended to be slightly constipated but during adulthood has managed this much better. Rarely does she have loose stools. No vomiting, occasional mild intermittent nausea. No earlysatiety or weight loss. No GI surgeries. Medications: Dexcom G7 Sensor Device diclofenac (Voltaren) 1 % Gel fluticasone propionate (Flonase) 50 mcg/actuation Perry, Suspension albuteroL 90 mcg/actuation HFA Aerosol Inhaler Microgestin 1.5/30, 21, 1.5-30 mg-mcg Tablet Allergies: is allergic to lactose and lavender. Past Medical History: Past Surgical History: has no past surgical history on file. Family History: family history includes Diabetes in her father, maternal grandmother, paternal aunt, and paternal grandmother. denies family history of colon cancer, IBD, or celiac disease in mother father or other family members Social History: reports that she has never smoked. She has never used smokeless tobacco. She reports that she does not currently use alcohol. She reports that she does not currently use drugs. Assessment/Plan: 28-year-old female seen in consultation to discuss her severe hypoglycemia and the possibility of dumping syndrome. I explained to Shira that I am not sure what specific tests are available to diagnose dumping syndrome. I explained to her that we may see rapid emptying on gastric emptying scans, though I am not sure if this is diagnostic of dumping. We also discussed how not a specific solutionfor dumping aside from dietary changes. She tells me that her team is not necessarily looking for solution but rather a better understanding as to the etiology of her symptoms. I explained to Shira that I will discuss her case on Monday's multidisciplinary conference and reach back out to her. Other considerations that I will discuss with the team is whether we need to evaluate for an insulinoma. I will reach out to Dr. Young as well JOLEEN Blancas [facility] 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
--- OUTSIDE RECORDS SUMMARY | 2024-06-14 23:15 | XMS_ITS | Encounter Summary ---
[place] [address] Care Team Providers Care Plane Runner Name Role Phone Keyla Solorzano DO Primary Care Provider +1- [phone] Reason for Referral * Consultation (Routine) - Closed Specialty Diagnoses / Procedures Referred By Contstephany t Referred To Contact Endocrinology Diagnoses Disorder of carbohydrate metabolism Other hypoglycemia Hypoglycemia, unspecified Keyla Solorzano DO [address] [place] [address] [facility] Endocrinology [address] [place] [phone] Referral ID Status Reason Start Date Expiration Date V isits Requested Visits Authorized [id number] Closed Consult, Test & Treat PCP Updated and/or Approved 05/23/2023 11/22/2023 6 6 Encounter Details Date Type Department Care Team (Latest Contact Info) Description 06/16/2023 Transcribe Orders eDH Incoming Referrals [phone] Keyla Solorzano DO [address] [place] [address] Disorder of carbohydrate metabolism; Other hypoglycemia; Hypoglycemia, unspecified Social History Tobacco [...] 1:30 PM EDT Office [place] [address] Lee Regan MD [facility] [address] Scheduled Referrals Name Type Priority Associated Diagnoses Orde r Schedule Referral to Endocrinology Outpatient Referral Routine Disorder of carbohydrate metabolism Other hypoglycemia Hypoglycemia, unspecified Ordered: 06/16/2023 documented as of this encounter Visit Diagnoses Diagnosis Disorder of carbohydrate metabolism Unspecified disorder of carbohydrate transport and metabolism Other hypoglycemia Hypoglycemia, unspecified documented in this encounter Care Teams Plane Runner Relationship Specialty Start Date End Date Keyla Solorzano DO [address] [place] [address] PCP - General Family Medicine 05/23/23 documented as of this encounter
--- OUTSIDE RECORDS SUMMARY | 2024-06-14 23:15 | XMS_ITS | Encounter Summary ---
[place] [address] Care Team Providers Care Inspector Repairer Sandstone Name Role Phone Keyla Solorzano DO Primary Care Provider +1- [phone] Reason for Referral * Consultation (Routine) - Authorized Specialty Diagnoses / Procedures Referred By Contstephany t Referred To Contact Endocrinology Diagnoses POTS (postural orthostatic tachycardia syndrome) Hypoglycemia, unspecified Systemic involvement of connective tissue Other disorders of autonomic nervous system Other specified disorders involving the immune mechanism, not elsewhere classified Keyla Solorzano DO [address] [place] [address] [facility] Endocrinology [address] [place] [phone] Referral ID Status Reason Start Date Expiration Date Visits Requested Visits Authorized [id number] Authorized Consult, Test & Treat PCP Updated and/or Approved 03/26/2024 03/26/2025 6 6 Encounter Details Date Type Department Care Team (Latest Contact Info) Description 04/05/2024 Transcribe Orders eDH Incoming Referrals [phone] Keyla Solorzano DO [address] [place], [place] [id number] POTS (postural orthostatic tachycardia syndrome); Hypoglycemia, unspecified; Systemic involvement of connective tissue; Other disorders of autonomic nervous system; Other specified disorders involving the immune mechanism, not elsewhere classified Social History Tobacco Use Types Packs/Day Years [...] 1:30 PM EDT Office [place] [address] Lee Regan MD [facility] [place] [address] Scheduled Referrals Name Type Priority Associated Diagnoses Order Schedule Referral to Endocrinology Outpatient Referral Routine POTS (postural orthostatic tachycardia syndrome) Hypoglycemia, unspecified Systemic involvement of connective tissue Other disorders of autonomic nervous system Other specified disorders involving the immune mechanism, not elsewhere classified Ordered: 04/05/2024 documented as of this encounter Visit Diagnoses Diagnosis POTS (postural orthostatic tachycardia syndrome) Tachycardia, unspecified Hypoglycemia, unspecified 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
--- OUTSIDE RECORDS SUMMARY | 2024-06-14 23:15 | XMS_ITS | Encounter Summary ---
Author Organization [facility] [place] [address] Care Team Providers Care Knitter Operator Name Role Phone Keyla Solorzano DO Primary Care Provider [phone]- [phone] Encounter Details Date Type Department Care Team (Late st Contact Info) Description 10/17/2023 9:10 PM EST Ancillary Procedure [place] [address] Keyla Solorzano DO [address] [place] [id number] Social History Tobacco Use Types Packs/Day Years [...] 1:30 PM EDT Office Visit [place] [address] [facility] [place] [address] documented as of this encounter Procedures Procedure Name Priority Date/Time Associated Diagnosis Comments FILM LIBRARY STORAGE ONLY CT CHEST Routine 10/17/2023 9:00 PM EST documented in this encounter Results * Film Library- Storage Only CT Chest (10/17/2023 9:00 PM EST) Narrative [facility] - 10/17/2023 9:00 PM EST This exam is auto-finalizing. It's purpose is for storage only. Keyla Solorzano DO IMG FILM LIBRARY O RDERABLES Performing Organization Address City/State/[facility] Co de Phone Number [place], [place] documented in this encounter Visit Diagnoses Not on filedocumented in this encounter Care Teams Knitter Operator Relationship Specialty Start Date End Date Keyla Solorzano DO [address] [place] [address] PCP - General Family Medicine 05/23/23 documented as of this encounter
--- OUTSIDE RECORDS SUMMARY | 2024-06-14 23:16 | XMS_ITS | Encounter Summary ---
Author Organization [facility] Address [address] [place] [address] Care Team Providers Care Income Tax Administrator Name Role Phone Unavailable Primary Care Provider Unavailabl e Encounter Details Date Type Department Care Team (Late st Contact Info) Description 11/17/2023 Lab Requisition [facility] Pathology & Laboratory Medicine - [facility] [address] [place] [address] Outr Resulting Lab, Provider Social History Tobacco Use Types Packs/Day Years Used Date Smoking Tobacco: Never Assessed Interpersonal Safety Answer Date Record ed Physically Hurt Never 11/03/2020 Verbally Threaten Not on file 11/03/2020 Sex and Gender Information Value Date Recorded Sex Assigned at Not on file Gender Identity Not on file Sexual Orientation Not on file documented as of this encounter Plan of Treatment Not on file documented as of this encounter Procedures Procedure Name Priority Date/Time Associated Diagnosis Comments T3 FREE Routine 11/16/2023 15:30 EST documented in this encounter Results * T3 FREE (11/16/2023 15:30 EST) T3, Free 4.6 2.8 - 5.3 pg/mL 11/17/2023 17:16 EST [facility] Blood VENOUS BLOOD / Unknown 11/16/2023 15:30 EST 11/17/2023 16:47 EST Provider Outr Resulting Lab CHEMISTRY & BLOOD GAS ORDERABLES [facility] [address] [place] [address] documented in this encounter Visit Diagnoses Not on filedocumented in this encounter
--- OUTSIDE RECORDS SUMMARY | 2024-06-14 23:16 | XMS_ITS | Encounter Summary ---
Author Organization [facility] Address [address] [place] [address] Care Team Providers Care Pony Rougher Name Role Phone Unavailable Primary Care Provider Unavailabl e Encounter Details Date Type Department Care Team (Late st Contact Info) Description 01/05/2021 Lab Requisition [facility] Pathology & [place] [address] Outr Resulting Lab, Provider Social History Tobacco [...] Procedure Name Priority Date/Time Associated Diagnosis Comments ZZCOVID-19 TEST [facility] PCR Today 01/05/2021 9:08 EST COVID-19 TESTING Routine 01/05/2021 9:08 EST documented in this encounter Results * COVID-19 TEST [facility] PCR (01/05/2021 9:08 EST) Swab ENTIRE NASOPHARYNX / Unknown 01/05/2021 9:08 EST 01/05/2021 16:56 EST Provider Outr Resulting Lab MICROBIOLOGY - GENERAL ORDERABLES [facility] [address] [place] [address] * COVID-19 TESTING (01/05/2021 9:08 EST) COVID-19 rt-PCR Result Negative Negative 01/06/2021 15:12 EST [facility] Comment: This test has not been FDA cleared or approved. This test has been authorized by FDA under an EUA for use by authorized laboratories. This test has been authorized only for detection of nucleic acid from 2019-nCoV, not for any other viruses or pathogens. This test is only authorized for the duration of the declaration that circumstances exist justifying the authorization of emergency use of in vitro diagnostic tests for detection and/or diagnosis of 2019-nCoV under section 564(b)(1) of Act, 21 U.S.C ?? 360bbb-3(b) (1), unless the authorization is terminated or revoked sooner. Negative results do not preclude 2019-nCoV infection and should not be used as the sole basis for treatment or other patient management decisions. Negative results must be combined with clinical observations, patient history, and epidemiological information. Testing was performed using the kanu SARS-CoV-2 assay ([employer] on the Kanu 6800 System Performing Lab Kanu [address] [facility] 01/06/2021 15:12 EST [facility] Swab 01/05/2021 9:08 EST 01/05/2021 16:56 EST Provider Outr Resulting Lab MICROBIOLOGY - GENERAL ORDERABLES [facility] [address] [place] [address] documented in this encounter Visit Diagnoses Not on filedocumented in this encounter
--- OUTSIDE RECORDS SUMMARY | 2024-06-14 23:16 | XMS_ITS | Clinical Summary ---
Author Organization [facility] Address [address] [place] [address] Care Team Providers Care Dermatology Sales Representative Name Role Phone Pcp, No Unavailable Unavailable Allergies Active Allergy Reactions Criticality Noted Date Comments Lactose Unknown - not noted in history 08/09 Lavender Oil Hives 06/04/2020 Medications Medication Sig Dispensed Refills Start Date End Date Status montelukast (Singulair) 5 MG Chew Tab Chew and swallow 2 tablets (10 mg total) by mouth daily. 60 Tablet 12 10/24/2023 Active norethindrone acetate-ethinyl estradiol (JUNEL .04/25) 1.5-30 MG-MCG Tab TAKE 1 ACTIVE TABLET BY MOUTH DAILY, NO WITHDRAWL BLEED 63 Tablet 3 06/30/2023 Active albuterol HFA 108 (90 Base) MCG/ACT Aero Soln Every 4 hours. 0 Active benzonatate (TESSALON) 200 MG Cap 0 11/17/2023 Active budesonide-formoter ol (Symbicort) 160-4.5 mcg/puff Aerosol Inhalation 2 Puffs. 0 Activ e EPINEPHrine (EPI-PEN) 0.3 MG/0.3ML Solution Auto-injector 0 09/01/2023 Active fluconazole (Diflucan) 40 MG/ML Recon Susp TAKE 2.5ML BY MOUTH ONCE DAILY FOR 14 DAYS 0 11/15/2023 Active fluticasone (Flonase) 50 MCG/ACT Suspension 0 08/08/2022 Active OneTouch Verio Strip USE TO TEST BLOOD SUGER TWO TIMES A DAY 0 10/28/2023 Active ipratropium-albuter ol (Duo-Neb) 0.5-2.5 (3) MG/3ML Solution INHALE THE CONTENTS OF ONE VIAL VIA NEBULIZER FOUR TIMES A DAY NEEDED FOR WHEEZING/PRODUCTIVE MOIST COUGH +MAY USE INSTEAD OF ALBUTEROL W 0 09/14/2023 Active midodrine (Proamatine) 5 MG Tab TAKE ONE TABLET BY MOUTH THREE TIMES A DAY; DO NOT GIVE THE LAST DOSE OF DAY AFTER 6PM OR WITHIN 4 HOURS OF BEDTIME 0 10/27/2023 Active Social History Tobacco Use Types Packs/Day Years Used Date Smoking Tobacco: Never Smokeless Tobacco: Never PHQ-2 Answer Date Recorded Patient Health Questionnaire-2 Score 0 11/23/2023 Sex and Gender Information Value Date Recorded Sex Assigned at Not on file Gender Identity Not on file Sexual Orientation Not on file Last Filed Vital Signs Vital Sign Reading Time Taken Comments Blood Pressure 108/66 11/23/2023 2:49 PM EST Pulse 122 11/23/2023 2:49 PM EST Temperature 36.9 ??C (98.4 ??F) 11/23/2023 2:49 PM ES T Respiratory Rate 24 11/23/2023 2:49 PM EST Oxygen Saturation 99% 11/23/2023 2:49 PM EST Inhaled Oxygen Concentration 99% 11/23/2023 2 :49 PM EST Weight 72.6 kg (160 lb) 11/23/2023 2:49 PM EST Height 157.5 cm (5' 2) 11/23/2023 2:49 PM EST Body Mass Index 29.26 11/23/2023 2:49 PM EST Plan of Treatment Health Maintenance Due Date Last Done Comments HIV Screening with Documente d Verbal Consent 2012 HPV Vaccines (1 - 3-dose series) 2012 Hepatitis C Screening 2015 TDAP/TD Vaccine 18+ 2015 Hepatitis B Vaccines (1 of 3 - 19+ 3-dose series) 2016 Cervical Cancer Screening 2018 COVID-19 Vaccine (1 - 2022-2 4 season) 2023 Influenza Vaccine (#1) 2024 Depression Screening 11/23/2024 11/23/2023 Pneumococcal: Peds (0-5y) OR At-Risk Patient (6-64y) Aged Out No longer eligib le based on patient's age to complete this topic Insurance Payer Benefit Plan / Group Subscriber ID Effective Dates Phone Address Type [facility] [id number] [address] [place] [id number] Care Teams Dermatology Sales Representative Relationship Specialty Start Date End Date Pcp, No PCP - Generic [facility] PCP 11/23/23
--- OUTSIDE RECORDS SUMMARY | 2024-06-14 23:16 | XMS_ITS | Encounter Summary ---
Author Organization [facility] Address [address] [place] [address] Care Team Providers Care Process Control Board Operator Name Role Phone Unavailable Primary Care Provider Unavailabl e Encounter Details Date Type Department Care Team (Late st Contact Info) Description 10/26/2023 Lab Requisition [facility] Pathology & Laboratory Medicine - [address] [address] Outr Resulting Lab, Provider Social History Tobacco [...] Procedure Name Priority Date/Time Associated Diagnosis Comments FOLATE Routine 10/26/2023 6:15 EST VITAMIN B12 Routine 10/26/2023 6:15 EST documented in this encounter Results * FOLATE (10/26/2023 6:15 EST) Folate 13.4 See Note ng/mL 10/26/2023 23:12 EST [facility] Comment: Reference Ranges for Folate: Deficient: ?< 3.4 ng/mL Indeterminate: ??3.4 - 5.4 ng/mL Normal: ? > 5.4 ng/mL The results of this assay can be falsely elevated due to the consumption of Biotin. Blood VENOUS BLOOD / Unknown 10/26/2023 6:15 EST 10/26/2023 22:00 EST Provider Outr Resulting Lab CHEMISTRY & BLOOD GAS ORDERABLES Performing Organization Address City/[facility]/ZIP Co de Phone Number [facility] [address] [place] [address] * VITAMIN B12 (10/26/2023 6:15 EST) Vitamin B12 282 211 - 911 pg/mL 10/26/2023 23:16 EST [facility] Blood VENOUS BLOOD / Unknown 10/26/2023 6:15 EST 10/26/2023 22:00 EST Provider Outr Resulting Lab CHEMISTRY & BLOOD GAS ORDERABLES Performing Organization Address [facility] Co de Phone Number [facility] [address] [place] [address] documented in this encounter Visit Diagnoses Not on filedocumented in this encounter
--- OUTSIDE RECORDS SUMMARY | 2024-06-14 23:16 | XMS_ITS | Encounter Summary ---
Author Organization [facility] Address [address] [place] [address] Care Team Providers Care Rigger Name Role Phone Unavailable Primary Care Provider Unavailabl e Encounter Details Date Type Department Care Team (Late st Contact Info) Description 01/10/2024 Lab Requisition [facility] Pathology & Laboratory Medicine - [facility] [address] [place] [address] Outr Resulting Lab, Provider Social History Tobacco [...] Date/Time Associated Diagnosis Comments T3 FREE Routine 01/09/2024 15:55 EST THYROID ANTIBODIES Routine 01/09/2024 15 :55 EST documented in this encounter Results * T3 FREE (01/09/2024 15:55 EST) T3, Free 4.0 2.8 - 5.3 pg/mL 01/10/2024 17:59 EST [facility] Blood VENOUS BLOOD / Unknown 01/09/2024 15:55 EST 01/10/2024 17:00 EST Provider Outr Resulting Lab CHEMISTRY & BLOOD GAS ORDERABLES [facility] [address] [place] [address] * THYROID ANTIBODIES (01/09/2024 15:55 EST) Anti-Thyroglobulin <15 <=60 U/mL 2023 19:11 EST [facility] Thyroperoxidase Ab 29 <=60 U/mL 2023 19:11 EST [facility] Blood VENOUS BLOOD / Unknown 01/09/2024 15:55 EST 01/10/2024 17:00 EST Provider Outr Resulting Lab CHEMISTRY & BLOOD GAS ORDERABLES [facility] [address] [place] [address] documented in this encounter Visit Diagnoses Not on filedocumented in this encounter
--- OUTSIDE RECORDS SUMMARY | 2024-06-14 23:16 | XMS_ITS | Encounter Summary ---
Author Organization [facility] Address [address] [place] [address] Care Team Providers Care Recreation Director Name Role Phone Unavailable Primary Care Provider Unavailabl e Encounter Details Date Type Department Care Team (Late st Contact Info) Description 12/06/2023 Lab Requisition [facility] Pathology & [place] [address] Outr Resulting Lab, Provider Social History Tobacco [...] Procedure Name Priority Date/Time Associated Diagnosis Comments IGE Routine 12/05/2023 16:25 EST documented in this encounter Results * IGE (12/05/2023 16:25 EST) IgE 3 <158 IU/mL 12/06/2023 18:06 EST [facility] Blood VENOUS BLOOD / Unknown 12/05/2023 16:25 EST 12/06/2023 17:01 EST Provider Outr Resulting Lab CHEMISTRY & BLOOD GAS ORDERABLES [facility] [address] [place] [address] documented in this encounter Visit Diagnoses Not on filedocumented in this encounter
--- OUTSIDE RECORDS SUMMARY | 2024-06-14 23:16 | XMS_ITS | Referral Summary ---
Author Organization [facility] Address [address] [place] [address] Care Team Providers Care Dump Operator Name Role Phone Unavailable Primary Care Provider Unavailabl e Social History Tobacco Use Types Packs/Day Years Used Date Smoking Tobacco: Never Assessed Interpersonal Safety Answer Date Record ed Physically Hurt Never 11/03/2020 Verbally Threaten Not on file 11/03/2020 Sex and Gender Information Value Date Recorded Sex Assigned at Not on file Gender Identity Not on file Sexual Orientation Not on file Plan of Treatment Not on file
--- OUTSIDE RECORDS SUMMARY | 2024-06-14 23:16 | XMS_ITS | Patient Health Record ---
Author Organization [facility] Address [address] [place] [address] Care Team Providers Care Supervisor Bindery Name Role Phone Suki Meadeer Primary Care Provider Unavail able Allergies No Known Allergies Reason For Referral No Information Medications Medication SIG (Take, Route, Frequency, Duration) Notes Start Date End Date Status ProAir HFA 108 (90 Base) MCG/ACT 1 puff as needed Inhalation every 4 hrs PRN Active EpiPen PRN Active Iso-Balta Active Problems Problem Type SNOMED Code ICD Code Onset Dates Problem Status W/U Status Risk Notes Problem Allergic rhinitis (88407103) Other allergic rhinitis (J30.89) Active confirmed Plan Of Treatment No Information Insurance Providers Payer Name Payer Address Payer Phone Subscriber Number Group Number Insured Name Patient Relationship to Insured Coverage Start Date Coverage End Date [place] [employer] [facility] [address] [place] [id number] [phone] [id number] Diana [place] Self - patient is the insured Medical (General) History Medical History History ICD Code Asthma Seizures Migraines Temporal lobe cyst Abdominal Pain Diarrhea Food Allergy Surgical History Surgery Date(Month/Year) sinus surgery 2019 Hospitalization History Reason Date(Month/Year) seizure 09/1997
--- OUTSIDE RECORDS SUMMARY | 2024-06-14 23:16 | XMS_ITS | Referral Summary ---
Author Organization [facility] Address [address] [place] [address] Care Team Providers Care Parking Meter Mechanic Name Role Phone Pcp, No Unavailable Unavailable [...] 11/23/2023 2:49 PM EST Plan of Treatment Not on file Insurance Payer Benefit Plan / Group Subscriber ID Effective Dates Phone Address Type BCBS [facility] [id number] 2023-[place] [address] [place] [id number] Care Teams Parking Meter Mechanic Relationship Specialty Start Date End Date Pcp, No PCP - Generic [facility] PCP 11/23/23
--- OUTSIDE RECORDS SUMMARY | 2024-06-14 23:16 | XMS_ITS | Encounter Summary ---
Author Organization [facility] Address [address] [place] [address] Care Team Providers Care Commercial Energy Rater Name Role Phone Unavailable Primary Care Provider Unavailabl e Encounter Details Date Type Department Care Team (Late st Contact Info) Description 07/10/2021 Lab Requisition [facility] Pathology & [place] [address] Outr Resulting Lab, Provider Social History Tobacco [...] Priority Date/Time Associated Diagnosis Comments [facility]COVID-19 [facility] Today 07/09/2021 15:45 EDT COVID-19 TESTING Routine 07/09/2021 15:4 5 EDT documented in this encounter Results * COVID-19 TEST [facility] LAB PCR (07/09/2021 15:45 EDT) Swab ENTIRE NASOPHARYNX / Unknown 07/09/2021 15:45 EDT 07/10/2021 21:48 EDT Provider Outr Resulting Lab MICROBIOLOGY - GENERAL ORDERABLES [facility] [address] [place] [address] * COVID-19 TESTING (07/09/2021 15:45 EDT) COVID-19 rt-PCR Result Negative Negative 07/11/2021 1:21 EDT [facility] Comment: This test has [...] clinical observations, patient history, and epidemiological information. Performed on the Luxeraher Fusion instrument Performing Lab [place] [facility] Lab 07/11/2021 1:21 EDT [facility] Swab 07/09/2021 15:4 5 EDT 07/10/2021 21:48 EDT Provider Outr Resulting Lab MICROBIOLOGY - GENERAL ORDERABLES [facility] [address] [place] [address] documented in this encounter Visit Diagnoses Not on filedocumented in this encounter
--- OUTSIDE RECORDS SUMMARY | 2024-06-14 23:16 | XMS_ITS | Encounter Summary ---
Author Organization [facility] Address [address] [place] [address] Care Team Providers Care Hardwood Sawyer Name Role Phone Unavailable Primary Care Provider Unavailabl e Encounter Details Date Type Department Care Team (Late st Contact Info) Description 10/29/2021 Lab Requisition [facility] Pathology & Laboratory Medicine - [address] [address] Outr Resulting Lab, Provider Social History Tobacco [...] Procedure Name Priority Date/Time Associated Diagnosis Comments CELIAC DISEASE PANEL Routine 10/29/2021 13:24 EST documented in this encounter Results * CELIAC DISEASE PANEL (10/29/2021 13:24 EST) Tissue Transglutaminase Antibody IGA <1.2 <4.0 U/mL 11/01/2021 13:13 EST [facility] Comment: A negative result may be due to IgA deficiency and does not rule out celiac disease. ? Negative: ??<4.0 U/mL ? Weak Positive: ??4.0 - 10.0 U/mL ? Positive: ??>10.0 U/mL Results were obtained with the VehconA Lite R h-tTG IgA PATT assay on the yuilop SL DSX. IgA 136 85 - 499 mg/dL 11/01/2021 13:13 EST [facility] Celiac Disease Interpretation Negative Serology. Celiac disease unlikely. Approximately 10% of patients with celiac disease are seronegative. Patients who are already adhering to a gluten-free diet may also be seronegative. If celiac disease is highly clinically suspected, referral to gastroenterology for additional evaluation is recommended. 11/01/2021 13:13 EST [facility] Blood VENOUS BLOOD / Unknown 10/29/2021 13:24 EST 10/29/2021 21:27 EST Provider Outr Resulting Lab IMMUNOLOGY A ND SEROLOGY ORDERABLES [facility] [address] [place] [address] documented in this encounter Visit Diagnoses Not on filedocumented in this encounter
--- OUTSIDE RECORDS SUMMARY | 2024-06-14 23:16 | XMS_ITS | Encounter Summary ---
Author Organization [facility] Address [address] [place] [address] Care Team Providers Care Senior Grants Officer Name Role Phone Pcp, No Unavailable Unavailable Reason for Visit * Reason Comments Fever 103 last night, 102 this morning- had covid 4 weeks ago, tested negative today Cough Started the Generalized Body Aches Shortness of Breath Encounter Details Date Type Department Care Team (Late st Contact Info) Description 11/23/2023 5:00 PM EST Office Visit [facility] [address] [facility] [address] [place] [address] Melania Howard, [facility] [address] [place] [address] Viral illness (Primary Dx); Influenza Social History Tobacco Use Types Packs/Day Years [...] Mass Index 29.26 11/23/2023 2:49 PM EST documented in this encounter Progress Notes * O'Nathan, Christiano, PAC - 11/24/2023 10:35 AM ESTAddended by: CHRISTIANO TAPIA F on: 11/24/2023 10:35 AM Modules accepted: Orders * Christiano Tapia PAC - 11/24/2023 10:33 AM EST Pos Flu - PT with 2 days of acute influenza symptoms in setting of 5-week cough following COVID infection. With asthma dx. * Melania Howard PAC - 11/23/2023 3:27 PM EST Subjective: 28 year old female presents to the walk-in clinic for cough and fever starting 11/21. On that day, she was seen at an urgent care in [place]. She was told it was viral and to be evaluated againif symptoms become worse. She presents today for evaluation for fever, 102 this morning, body achesand cough. She has been taking tylenol and Ibuprofen. She reports a history of Covid 5 weeks ago. She was subsequently diagnosed with myocarditis and is following with a Splicer Operator at [facility] in [place]. She has an echo, Cardiac MRI and stress testscheduled. She is being tapered off midodrine. She has completed 3x round of prednisone. She reports fluid retention from the prednisone. Her covid symptoms did linger for some time. She reports 4 symptom free days, until she again became ill on 11/21. Home covid testing is negative. She has a history of asthma. Follows with pulmonology at home. Uses Levalbuterol and Symbicort. Hassome further symptomatic relief with tessalon. She has not been using her levalbuterol per cardio to reduce the risk of tachyarrhythmia. When walking she notes some baseline chest discomfort which she has been experiencing since being diagnosed with myocarditis. Feels like this is slightly worse. Since the diagnosis, her resting HR has been 100-105. Chief Complaint: Fever (103 last night, 102 this morning- had covid 4 weeks ago, tested negative today ), Cough (Started the ), Generalized Body Aches, and Shortness of Breath Review of Systems Constitutional: Positive for fever. HENT: Negative. Respiratory: Positive for cough and shortness of breath. Cardiovascular: Positive for chest pain. Gastrointestinal: Negative. Musculoskeletal: Positive for myalgias. Objective: Vitals: 11/23/23 1449 BP: 108/66 Pulse: (!) 122 Resp: 24 Temp: 36.9 ??C (98.4 ??F) SpO2: 99% Physical Exam Constitutional: General: She is not in acute distress. Appearance: She is well-developed. She is not toxic-appearing. HENT: Mouth/Throat: Mouth: Mucous membranes are moist. Pharynx: Oropharynx is clear. Cardiovascular: Rate and Rhythm: Regular rhythm. Tachycardia present. Comments: Heart rate is 117 bpm during my exam She is calm and comfortable appearing Pulmonary: Effort: Pulmonary effort is normal. No tachypnea. Breath sounds: Normal breath sounds. No decreased breath sounds, wheezing, rhonchi or rales. Comments: 18 breaths per minute at rest during my exam Musculoskeletal: Cervical back: Normal range of motion. Neurological: Mental Status: She is oriented to person, place, and time. Assessment and Plan: Viral illness - INFLUENZA A + B PCR; Future Orders Placed This Encounter Procedures INFLUENZA A + B PCR Orders Placed This Encounter Medications benzonatate (Tessalon) 100 MG Cap Sig: Take 1 Capsule (100 mg total) by mouth 3 times daily as needed for Cough. Dispense: 21 Capsule Refill: 0 2 days sudden onset viral symptoms. Home testing for covid negative. PCR influenza obtained. She isoutside the window of tamiflu, but this is important to obtain due to current treatment of Myocarditis Her chest is clear to ausculation. I would continue to hold off on her levalbuterol unless absolutely necessary I discussed the limitations of a walk-in clinic. If her breathing becomes labored or chest pain worsens, dizziness or syncope occur she was directed to the ER for evaluation documented in this encounter Plan of Treatment Not on file documented as of this encounter Results * (ABNORMAL) INFLUENZA A + B PCR (11/23/2023 6:29 PM EST) Influenza Virus A RNA PCR DETECTED(A) NOT DETECTED [facility] Influenza Virus B RNA PCR NOT DETECTED NOT DETECTED [facility] Comment: - THIS ASSAY DETECTS ALL SUBTYPES OF INFLUENZA A AND INFLUENZA B. INFLUENZA A INCLUDES THE SEASONAL H3 INFLUENZA, SEASONAL H1 INFLUENZA AND THE 2009 H1N1 SWINE INFLUENZA VIRUS. - THIS TEST IS SPECIFIC FOR INFLUENZA A AND B. A NEGATIVE RESULT DOES NOT ELIMINATE THE POSSIBILITY OF INFECTION WITH OTHER RESPIRATORY VIRUSES. A NEGATIVE TEST DOES NOT EXCLUDE INFECTION WITH INFLUENZA A OR INFLUENZA B VIRUS. THE RESULTS OBTAINED SHOULD BE USED IN CONJUNCTION WITH CLINICAL FINDINGS TO MAKE AN ACCURATE DIAGNOSIS. - THE SENSITIVITY OF THE ASSAY IS VERY DEPENDENT UPON THE QUALITY OF THE SPECIMEN SUBMITTED. RECENT VACCINATION WITH LIVE INFLUENZA VIRUS MAY AFFECT TEST RESULTS. - THIS TEST'S PERFORMANCE CHARACTERISTICS WERE VALIDATED AT [facility]. IT HAS NOT BEEN CLEARED OR APPROVED BY THE [place] FOOD AND DRUG ADMINISTRATION (FDA). THIS TEST IS USED FOR CLINICAL PURPOSES, AND SHOULD NOT BE REGARDED INVESTIGATIONAL OR FOR RESEARCH USE ONLY. Swab 11/23/2023 6:29 PM EST 11/23/2023 6:29 PM EST Melania Howard PAC MICROBIOLOGY - G ENERAL ORDERABLES [facility] [address] [place] [address] documented in this encounter Visit Diagnoses Diagnosis Viral illness- Primary Unspecified viral infection, in conditions classified elsewhere and of unspecified site Influenza Influenza with other respiratory manifestations documented in this encounter Additional Health Concerns Infection Onset Date Last Indicated Resolved Time R/O Influenza 11/23/2023 11/25/2023 11/24/2023 2:4 5 AM EST INFLUENZA 11/23/2023 11/23/2023 11/30/2023 7:27 PM EST documented as of this encounter Care Teams Senior Grants Officer Relationship Specialty Start Date End Date Pcp, No PCP - Generic [facility] PCP 11/23/23 documented as of this encounter
--- OUTSIDE RECORDS SUMMARY | 2024-06-14 23:16 | XMS_ITS | Encounter Summary ---
Author Organization [facility] Address [address] [place] [address] Care Team Providers Care Stripper Printed Circuit Boards Name Role Phone Unavailable Primary Care Provider Unavailabl e Encounter Details Date Type Department Care Team (Late st Contact Info) Description 12/01/2021 Lab Requisition [facility] Pathology & Laboratory Medicine - [address] [address] Outr Resulting Lab, Provider Social History Tobacco [...] Procedure Name Priority Date/Time Associated Diagnosis Comments C4 COMPLEMENT Routine 12/01/2021 7:20 EST documented in this encounter Results * C4 COMPLEMENT (12/01/2021 7:20 EST) C4 Complement 23 13 - 39 mg/dL 12/02/2021 10:33 EST [facility] Blood VENOUS BLOOD / Unknown 12/01/2021 7:20 EST 12/01/2021 21:22 EST Provider Outr Resulting Lab CHEMISTRY & BLOOD GAS ORDERABLES [facility] [address] [place] [address] documented in this encounter Visit Diagnoses Not on filedocumented in this encounter
--- OUTSIDE RECORDS SUMMARY | 2024-06-14 23:16 | XMS_ITS | Encounter Summary ---
Author Organization [facility] Address [address] [place] [address] Care Team Providers Care Paint Roller Covermaker Name Role Phone Unavailable Primary Care Provider Unavailabl e Encounter Details Date Type Department Care Team (Late st Contact Info) Description 11/18/2021 Lab Requisition [facility] Pathology & [place] [address] Outr Resulting Lab, Provider Social History Tobacco [...] Priority Date/Time Associated Diagnosis Comments ZZCOVID-19 TEST [facility] LAB PCR Today 11/18/2021 10:05 EST COVID-19 TESTING Routine 11/18/2021 10:0 5 EST documented in this encounter Results * COVID-19 TEST [facility] LAB PCR (11/18/2021 10:05 EST) Swab 11/18/2021 10:0 5 EST 11/18/2021 21:51 EST Provider Outr Resulting Lab MICROBIOLOGY - GENERAL ORDERABLES [facility] [address] [place] [address] * COVID-19 TESTING (11/18/2021 10:05 EST) COVID-19 rt-PCR Result Negative Negative 11/19/2021 16:47 EST [facility] Comment: This test has not [...] performed using the kanu SARS-CoV-2 assay ([employer] on the Kanu 6800 System Performing Lab [facility] [address] [facility] Lab 11/19/2021 16:47 EST [facility] Swab 11/18/2021 10:0 5 EST 11/18/2021 21:51 EST Provider Outr Resulting Lab MICROBIOLOGY - GENERAL ORDERABLES [facility] [address] [place] [address] documented in this encounter Visit Diagnoses Not on filedocumented in this encounter
--- OUTSIDE RECORDS SUMMARY | 2024-06-14 23:16 | XMS_ITS | Encounter Summary ---
Author Organization [facility] Address [address] [place] [address] Care Team Providers Care Print Line Inspector Name Role Phone Unavailable Primary Care Provider Unavailabl e Encounter Details Date Type Department Care Team (Late st Contact Info) Description 11/02/2020 Lab Requisition [facility] Pathology & Laboratory Medicine - [address] [address] Outr Resulting Lab, Provider Social History Tobacco [...] Procedure Name Priority Date/Time Associated Diagnosis Comments DO NOT ORDER STANDALONE - BROAD COVID TEST Today 11/02/2020 9:11 EST COVID-19 TESTING Routine 11/02/2020 9:11 EST documented in this encounter Results * DO NOT ORDER STANDALONE - BROAD COVID TEST (11/02/2020 9:11 EST) COVID-19 rt-PCR Result NEGATIVE Negative 11/03/2020 23:20 EST [facility] Comment: 2019-novel Coronavirus (2019-nCoV) not detected by the qRT-PCR assay. Consider testing for other respiratory viruses or re-collecting for 2019-nCoV testing. Note: Optimum timing for peak viral levels during infections caused by 2019-nCoV have not been determined. Collection of multiple specimens from the same patient may be necessary to detect the virus. Limitations Positive results are indicative of active infection with SARS-CoV-2 but do not rule out bacterial infection or co-infection with other viruses. The agent detected may not be the definite cause of disease. In addition, detection of viral RNA may not indicate the presence of infectious virus or that SARS-CoV-2 is the causative agent for clinical symptoms. Negative results do not preclude SARS-CoV-2 infection and should not be used as the sole basis for patient management decisions. Negative results must be combined with clinical observations, patient history, and epidemiological information. False negative results may also occur if amplification inhibitors are present in the specimen or if inadequate numbers of organisms are present in the specimen. Optimum specimen types and timing for peak viral levels during infections caused by SARS-CoV-2 have not been fully determined. Collection of multiple specimens (types and time points) from the same patient may be necessary to detect the virus. The test was validated for use with upper respiratory specimens obtained via nasopharyngeal or oropharyngeal swabs in VTM, UTM, M4, M5, M6, saline, and MTM media. The performance of this test has not been established for other specimens. Specimens collected using other FDA recommended Specimen Collection Materials listed in the FDA COVID-19 [employer] communication (February 20, 2020) are processed with the caveat that they were not all validated for use with this test and the result must be interpreted in this context. Furthermore, a false negative results may occur if a specimen is improperly collected, transported or handled. If the virus mutates in the RT-PCR target region, SARS-CoV-2 may not be detected or may be detected less predictably. Inhibitors or other types of interference may produce a false negative result. An interference study evaluating the effect of common cold medications was not performed. This test is not FDA-cleared but its performance characteristics were established by our CLIA-certified, CAP-accredited, high complexity laboratory in accordance with CLIA regulations, [employer] [place] (CAP) guidelines (Feb 13, 2020), and FDA guidance (Jan 25, 2020). This test is only for use under the Food and Drug Administration's Emergency Use Authorization. Swab ENTIRE NASOPHARYNX / Unknown 11/02/2020 9:11 EST 11/02/2020 16:17 EST Provider Outr Resulting Lab MICROBIOLOGY - GENERAL ORDERABLES [place] * COVID-19 TESTING (11/02/2020 9:11 EST) [facility] COVID-19 rt-PCR Result NEGATIVE Negative 11/03/2020 23:20 EST [facility] Comment: 2019-novel Coronavirus (2019-nCoV) not detected by the qRT-PCR assay. Consider testing for other respiratory viruses or re-collecting for 2019-nCoV testing. Note: Optimum timing for peak viral levels during infections caused by 2019-nCoV have not been determined. Collection of multiple specimens from the same patient may be necessary to detect the virus. Limitations Positive results are indicative of active infection with SARS-CoV-2 but do not rule out bacterial infection or co-infection with other viruses. The agent detected may not be the definite cause of disease. In addition, detection of viral RNA may not indicate the presence of infectious virus or that SARS-CoV-2 is the causative agent for clinical symptoms. Negative results do not preclude SARS-CoV-2 infection and should not be used as the sole basis for patient management decisions. Negative results must be combined with clinical observations, patient history, and epidemiological information. False negative results may also occur if amplification inhibitors are present in the specimen or if inadequate numbers of organisms are present in the specimen. Optimum specimen types and timing for peak viral levels during infections caused by SARS-CoV-2 have not been fully determined. Collection of multiple specimens (types and time points) from the same patient may be necessary to detect the virus. The test was validated for use with upper respiratory specimens obtained via nasopharyngeal or oropharyngeal swabs in VTM, UTM, M4, M5, M6, saline, and MTM media. The performance of this test has not been established for other specimens. Specimens collected using other FDA recommended Specimen Collection Materials listed in the FDA COVID-19 [employer] communication (February 20, 2020) are processed with the caveat that they were not all validated for use with this test and the result must be interpreted in this context. Furthermore, a false negative results may occur if a specimen is improperly collected, transported or handled. If the virus mutates in the RT-PCR target region, SARS-CoV-2 may not be detected or may be detected less predictably. Inhibitors or other types of interference may produce a false negative result. An interference study evaluating the effect of common cold medications was not performed. This test is not FDA-cleared but its performance characteristics were established by our CLIA-certified, CAP-accredited, high complexity laboratory in accordance with CLIA regulations, [employer] [place] (CAP) guidelines (Feb 13, 2020), and FDA guidance (Jan 25, 2020). This test is only for use under the Food and Drug Administration's Emergency Use Authorization. Performing Lab [facility] 11/03/2020 23:20 EST [facility] Swab 11/02/2020 9:11 EST 11/02/2020 16:17 EST Provider Outr Resulting Lab MICROBIOLOGY - GENERAL ORDERABLES [facility] [address] [place] [address] [facility] [place], [place] documented in this encounter Visit Diagnoses Not on filedocumented in this encounter
--- OUTSIDE RECORDS SUMMARY | 2024-06-14 23:16 | XMS_ITS | Clinical Summary ---
Author Organization [facility] Address [address] [place] [address] Care Team Providers Care Chainstitch Felled Seam Operator Name Role Phone Unavailable Primary Care [...] Orientation Not on file Plan of Treatment Health Maintenance Due Date Last Done Comments Hepatitis C Screen 1997 Hepatitis B Vaccine (1 of 3 - 19+ 3-dose series) 08/05 COVID-19 Vaccine (2022-24 season) 2023
--- OUTSIDE RECORDS SUMMARY | 2024-06-14 23:16 | XMS_ITS | Encounter Summary ---
Author Organization [facility] Address [address] [place] [address] Care Team Providers Care Parking Lot Attendant And Cashier Name Role Phone Unavailable Primary Care Provider Unavailabl e Encounter Details Date Type Department Care Team (Late st Contact Info) Description 06/14/2022 Lab Requisition [facility] Pathology & Laboratory Medicine - [address] [address] Nirali Quijano MD [address] [place] [address],[address] [id number] Encounter for other general examination Social History Tobacco Use Types Packs/Day Years [...] Procedure Name Priority Date/Time Associated Diagnosis Comments PAP TEST Today 06/13/2022 11:20 EDT Encounter for other general examination documented in this encounter Results * PAP TEST (06/13/2022 11:20 EDT) Specimens A. Cervix and/or Endocervix , ThinPrep Imaging System with Manual Evaluation 06/16/2022 11:04 EDT [facility] Specimen Adequacy Satisfactory for Evaluation - transformation zone component present 06/16/2022 11:04 EDT [facility] General Categorization Negative for intraepithelial lesion or malignancy 06/16/2022 11:04 T [facility] Attestation . 06/16/2022 11:04 T [facility] at 1104 Clinical History See below 06/16/20 11:04 EDT [facility] Performing Lab [facility] 06/16/2022 11:04 EDT [facility] Scanned Images 06/16/2022 11:04 EDT [facility] Papanicolaou smear specimen (specimen) CERVIX UTERI STRUCTURE / Unknown 06/13/2022 11:20 EDT 06/14/2022 11:05 EDT Nirali Quijano MD PATHOLOGY ORDERABLES [facility] [address] [place] [address] documented in this encounter Visit Diagnoses Diagnosis Encounter for other general examination documented in this encounter
--- OUTSIDE RECORDS SUMMARY | 2024-06-14 23:16 | XMS_ITS | Encounter Summary ---
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 Name Role Phone Pcp, No Unavailable Unavailable Encounter Details Date Type Department Care Team (Late st Contact Info) Description 03/04/2017 Hospital Visit [facility] LEGACY CONVERSION Sangeetha Valencia MD [address] [place] [id number] Social History Tobacco Use Types Packs/Day Years Used Date Smoking Tobacco: Never Assessed Sex and Gender Information Value Date Recorded Sex Assigned at Not on file Gender Identity Not on file Sexual Orientation Not on file documented as of this encounter ED Notes * Sangeetha Valencia MD - 03/05/2017 2:32 AM EDT Patient: SHIRA HORAN Clinical Report - Physicians/Mid Levels [facility] VisitID: [id number] [address] [place] [address] . [phone] 21y, F Registration Date/Time: 03/04/2017 19:16 Time Seen: 21:21. Arrived- By private vehicle. Historian- patient. CPT: ER: level 4 (CPT 17400). HISTORY OF PRESENT ILLNESS Chief Complaint: DYSPNEA and HISTORY OF ASTHMA. This started yesterday and is still present. The dyspnea is described as moderate and is worsened by exertion and cough. The patient has had a cough, chest discomfort, fever of 101 F and wheezing and experienced sweating episodes. (21 yo F presents for evaluation of cough, fever, and myalgias worsening over the 2 days. her cough is not productive but causing pain in anterior and posterior chest. she has chills and sweats, no rash. she has been in contact with several persons diagnosed with influenza. she had a near syncopal episode earlier today and suspects she is dehydrated). Similar symptoms previously: (reports having pneumonia or bronchitis twice per year). Recent medical care: The patient was seen recently by a health care provider. REVIEW OF SYSTEMS No eye irritation, nasal discharge, sinus drainage, nausea or vomiting. No abdominal pain or skin rash. She has had a sore throat and experienced syncope. All systems otherwise negative, except as recorded above. PAST HISTORY See nurses notes. Problems: Asthma. Medications: Montelukast Sodium Oral. Monocycline. Flovent HFA Inhalation. ProAir HFA Inhalation. Apree Control. Allergies: No Known Drug Allergy. SOCIAL HISTORY Never smoker. No alcohol use or drug use. ADDITIONAL NOTES The nursing notes have been reviewed. PHYSICAL EXAM Vital Signs: 03/04/2017 21:17 BP: 148/79. HR: 125. RR: 18. O2 saturation : 98%. Temp: 101.5 F. 03/04/2017 19:37 BP: 150/67. HR: 137. RR: 20. O2 saturation: 99%. Temp: 99.9 F. Pain level now: 09/05. Have been reviewed. Tachycardic. Febrile. Appearance: Alert. Patient in moderate distress. Eyes: Eyes normal inspection. ENT: Ears normal. Pharynx normal. Neck: Normal inspection. CVS: Normal heart rate and rhythm. Heart sounds normal. Pulses normal. Respiratory: No respiratory distress. Wheezing present. Abdomen: Soft and nontender. Back: Normal inspection. Skin: Skin warm and dry. Normal skin color. Neuro: Oriented X 3. No motor deficit. No sensory deficit. LABS, X-RAYS, AND EKG Chest X-ray: No acute disease. Infiltrate in the right lower lobe and left lower lobe. Consistent with pneumonia. Normal heart size. Mediastinum normal. Views: PA and lateral. Technique: good. The X-rays were independently viewed by me and interpreted contemporaneously by me. Interpretation time: 21:35. Laboratory Tests: Laboratory tests have been ordered, with results reviewed and considered in the medical decision making process. INFLUENZA RAPID SCREEN A : (HERBERT: 03/04/2017 19:45) ( MsgRcvd 20:14) Final results INFLU TYPE A: (HERBERT: 03/04/2017 19:45) ( MsgRcvd 03/04/2017 20: 15) Final results Performed at [facility] Lab Test Result Flag Units (Reference) INFLU TYPE A NEGATIVE N (NEGATIVE) INFLU TYPE B NEGATIVE N (NEGATIVE) A negative result does not rule out Influenza A and/orInfluenza B infection. . PROGRESS AND PROCEDURES Course of Care: fever and breathing improved with antipyretics and nebulizers. she continued to have tachycaridia while in the ED. she was in the 140 's in the beginning but after 3 L of fluids, she lowered to 100's. she appears anxious at times. Patient counseled in person regarding the patient's test results, diagnosis and need for follow-up. Concerns were addressed. Disposition: Discharged home in stable and improved condition. Condition: good and stable. CLINICAL IMPRESSION 03/05/2017 01:16 BP: 105/63. HR: 114. RR: 18. O2 saturation: 100%. Temp: 98.4 F. Pain level now: 0/10. Tachycardic. Fever Pneumonia. INSTRUCTIONS Take Tylenol (Acetaminophen) or Motrin (Ibuprofen) as needed for fever control. Take medication according to label instructions. Off work today, tomorrow. Off school until well, for 3 days. Rest. Warnings: GENERAL WARNINGS: Return or contact your physician immediately if your condition worsens or changes unexpectedly, if not improving as expected, or if other problems arise. SPECIFICALLY, return if you develop excessive fatigue; or for continued fever, productive cough or difficulty breathing. Prescription Medications: Doxycycline 100 mg: Take 1 capsule orally every 12 hours for 10 days. No refill. OTC Medications: Acetaminophen (available over the counter): take according to label instructions. Motrin (available over the counter): take according to label instructions. Follow-up: Return to the emergency department if not better. Follow up with your doctor if not better. Call for an appointment. Reason for referral: evaluation and cough and fever. Understanding of the discharge instructions verbalized by patient. ( [id number] by Sangeetha Valencia Transcribed on 03/04/17 191 by [employer] User Account Sign by Sangeetha Valencia on 03/05/17 0232 documented in this encounter Plan of Treatment Not on file documented as of this encounter Visit Diagnoses Not on filedocumented in this encounter Additional Health Concerns Infection Onset Date Last Indicated Resolved Time R/O Influenza 11/23/2023 11/25/2023 11/24/2023 2:4 5 AM EST INFLUENZA 11/23/2023 11/23/2023 11/30/2023 7:27 PM EST documented as of this encounter Care Teams Tree Fruit And Nut Crops Farmer Relationship Specialty Start Date End Date Pcp, No PCP - Generic [facility] PCP 11/23/23 documented as of this encounter
--- OUTSIDE RECORDS SUMMARY | 2024-06-14 23:16 | XMS_ITS | Encounter Summary ---
Author Organization [facility] Address [address] [place] [id number] Care Team Providers Care Jack Strip Assembler Name Role Phone Unavailable Primary Care Provider Unavailabl e Encounter Details Date Type Department Care Team (Late st Contact Info) Description 06/13/2022 Lab Requisition [facility] Pathology & Laboratory Medicine - [address] [address] Outr Resulting Lab, Provider Social History Tobacco [...] Procedure Name Priority Date/Time Associated Diagnosis Comments CHLAMYDIA/N. GONORRHOEAE AMPLIFIED NUCLEIC ACID Routine 06/13/2022 11:20 EDT documented in this encounter Results * CHLAMYDIA/N. GONORRHOEAE AMPLIFIED RNA (06/13/2022 11:20 EDT) Neisseria gonorrhoeae Result Negative Negative 06/14/2022 15:23 EDT [facility] Chlamydia trachomatis Result Negative Negative 06/14/2022 15:23 EDT [facility] Swab ENTIRE ENDOCERVIX / Unknown 06/13/2022 11:20 EDT 06/13/2022 21:57 EDT Provider Outr Resulting Lab MICROBIOLOGY - GENERAL ORDERABLES [facility] [address] [place] [address] documented in this encounter Visit Diagnoses Not on filedocumented in this encounter
--- OUTSIDE RECORDS SUMMARY | 2024-06-14 23:16 | XMS_ITS | Encounter Summary ---
Author Organization [facility] Address [address] [place] [address] Care Team Providers Care Threading Machine Operator Name Role Phone Pcp, No Unavailable Unavailable Encounter Details Date Type Department Care Team (Latest Contact Info) Description 11/23/2023 6:21 PM EST - 11/23/2023 11:59 PM EST Hospital Encounter [facility] [address] [place] [address] Melania Howard, PAC [address] [place] [address] Discharge Disposition: Home or Self Care Social History Tobacco Use Types Packs/Day Years [...] Sig Dispensed Refills Start Date End Date albuterol HFA 108 (90 Base) MCG/ACT Aero Soln Every 4 hours. 0 benzonatate (TESSALON) 200 MG Cap 0 11/17/2023 budesonide-formoterol (Symbicort) 160-4.5 mcg/puff Aerosol Inhalation 2 Puffs. 0 EPINEPHrine (EPI-PEN) 0.3 MG/0.3ML Solution Auto-injector 0 09/01/2023 fluconazole (Diflucan) 40 MG/ML Recon Susp TAKE 2.5ML BY MOUTH ONCE DAILY FOR 14 DAYS 0 11/15/2023 fluticasone (Flonase) 50 MCG/ACT Suspension 0 08/08/2022 ipratropium-albuterol (Duo-Neb) 0.5-2.5 (3) MG/3ML Solution INHALE THE CONTENTS OF ONE VIAL VIA NEBULIZER FOUR TIMES A DAY NEEDED FOR WHEEZING/PRODUCTIVE MOIST COUGH +MAY USE INSTEAD OF ALBUTEROL W 0 09/14/2023 midodrine (Proamatine) 5 MG Tab TAKE ONE TABLET BY MOUTH THREE TIMES A DAY; DO NOT GIVE THE LAST DOSE OF DAY AFTER 6PM OR WITHIN 4 HOURS OF BEDTIME 0 10/27/2023 OneTouch Verio Strip USE TO TEST BLOOD SUGER TWO TIMES A DAY 0 10/28/2023 montelukast (Singulair) 5 MG Chew Tab Chew and swallow 2 tablets (10 mg total) by mouth daily. 60 Tablet 12 10/24/2023 norethindrone acetate-ethinyl estradiol (JUNEL .04/25) 1.5-30 MG-MCG Tab TAKE 1 ACTIVE TABLET BY MOUTH DAILY, NO WITHDRAWL BLEED 63 Tablet 3 06/30/2023 benzonatate (Tessalon) 100 MG Cap Take 1 Capsule (100 mg total) by mouth 3 times daily as needed for Cough. 21 Capsule 0 11/23/2023 12/01/2023 documented as of this encounter Progress Notes * Francisca Messer NP - 11/23/2023 6:25 PM EST Inform patient that she is positive for influenza. Thank you. * Sigrid Finney RN - 11/23/2023 6:25 PM EST Notified patient of results. She is wondering why she isn't eligible for Tamiflu. She states her symptoms started 11/22, her cough is ongoing for 5 weeks since having covid. She would really like to start on Tamiflu. Please advise. * Carissa Manriquez PAC - 11/23/2023 6:25 PM EST I will send in tamiflu * Sigrid Finney RN - 11/23/2023 6:25 PM EST Notified patient that rx for Tamiflu has been sent to pharmacy. Pt expressed understanding. documented in this encounter Plan of Treatment Not on file documented as of this encounter Procedures Procedure Name Priority Date/Time Associated Diagnosis Comments INFLUENZA A + B PCR Routine 11/23/2023 6 :29 PM EST Viral illness documented in this encounter Results * (ABNORMAL) INFLUENZA A [...] THIS TEST'S PERFORMANCE CHARACTERISTICS WERE VALIDATED AT [facility]. IT HAS NOT BEEN CLEARED OR APPROVED BY THE [place]. FOOD AND DRUG ADMINISTRATION (FDA). THIS TEST IS USED FOR CLINICAL PURPOSES, AND SHOULD NOT BE REGARDED INVESTIGATIONAL OR FOR RESEARCH USE ONLY. Swab 11/23/2023 6:29 PM EST 11/23/2023 6:29 PM EST Melania Howard PAC MICROBIOLOGY - G ENERAL ORDERABLES [facility] [address] [place] [address] documented in this encounter Visit Diagnoses Diagnosis Viral illness Unspecified viral infection, in conditions classified elsewhere and of unspecified site documented in this encounter Additional Health Concerns Infection Onset Date Last Indicated Resolved Time R/O Influenza 11/23/2023 11/25/2023 11/24/2023 2:4 5 AM EST documented as of this encounter Care Teams Threading Machine Operator Relationship Specialty Start Date End Date Pcp, No PCP - Generic [facility] PCP 11/23/23 documented as of this encounter
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
[2024-06-14] MEDS: Fluorescein STRIPS 100/BOX 1 MG (23:31)
[2024-06-14] MEDS: Tetracaine 0.5% 4 ML BTL (23:31)
== END 2024-06-14 23:58 | disposition home or self-care (01) ==
PROVIDERS: Emergency Provider Student in an Organized Health Care Education/Training Program; PCP Student in an Organized Health Care Education/Training Program
DX: H04.122 Dry eye syndrome of left lacrimal gland (principal); E16.2 Hypoglycemia, unspecified
CPT/HCPCS: 99283

== ENCOUNTER 2024-11-04 17:07 | Outpatient (CLI) | payer BC, SELFPAY | END 2024-11-04 17:08 | disposition home or self-care (01) | LOC: DI.KIM 17:09 | PROVIDERS: PCP Student in an Organized Health Care Education/Training Program; Visit Provider Nurse Practitioner | CPT/HCPCS: 93010 ==

== ENCOUNTER 2025-01-17 00:37 | Outpatient (CLI) | payer BC, SELFPAY ==
[2025-01-17 16:02] LABS: HCT 42.8 % (36.0-46.0); HGB 13.9 g/dL (11.2-15.7); MCH 30.8 pg (27.0-33.0); MCHC 32.5 % (32.0-36.0); MCV 95 fL (80-95); MPV 12.1 fL (8.0-11.0); Platelet Count 204 10^3/uL (130-400); RBC 4.52 10^6/uL (3.93-5.22); RDW 11.9 % (11.7-14.6); RDW-SD 41.4 fL
[2025-01-17 16:52] LABS: ALT 11 U/L (14-59); AST 12 U/L (15-37); Albumin 3.4 g/dL (3.4-5.0); Alkaline Phosphatase 83 U/L (46-116); Anion Gap 5.6 mmol/L (3-11); BUN 13 mg/dL (7-18); Bilirubin, Total 0.19 mg/dL (0.2-1.0); C-Reactive Protein 0.84 mg/dL (<or=0.5); CO2 30.4 mmol/L (21.0-32.0); CREATININE 0.7 mg/dL (0.55-1.02); Calcium 9.2 mg/dL (8.5-10.1); Calculated LDL 91 mg/dL (<100); Chloride 104 mmol/L (98-107); Cholesterol 200 mg/dL (<200); Estimated GFR 121.49 (mL/min/1.73m2); Folate 18.6 ng/mL (8.6-20.0); Glucose 84 mg/dL (74-106); HDL Cholesterol 88 mg/dL (40-60); Potassium 3.9 mmol/L (3.5-5.1); Sodium 140 mmol/L (136-145); TSH (W/Ref FT4) 1.55 uIU/mL (0.36-3.74); Total Protein 7.1 g/dL (6.4-8.2); Triglyceride 106 mg/dL (<150); Vitamin B12 212 pg/mL (193-986)
== END 2025-01-17 00:38 | disposition home or self-care (01) ==
LOC: LBO 00:38
PROVIDERS: PCP Student in an Organized Health Care Education/Training Program; Referring Provider Student in an Organized Health Care Education/Training Program; Visit Provider Student in an Organized Health Care Education/Training Program
DX: K90.9 Intestinal malabsorption, unspecified (principal); E46 Unspecified protein-calorie malnutrition; R53.83 Other fatigue; D89.9 Disorder involving the immune mechanism, unspecified; Z13.220 Encounter for screening for lipoid disorders; R79.82 Elevated C-reactive protein (CRP); D89.89 Other specified disorders involving the immune mechanism, not elsewhere classified; R79.89 Other specified abnormal findings of blood chemistry; E16.1 Other hypoglycemia; R73.09 Other abnormal glucose; M77.9 Enthesopathy, unspecified; Z91.018 Allergy to other foods
CPT/HCPCS: 36415; 80053; 80061; 85027; 82607; 82746; 83036; 84443; 86140

== ENCOUNTER 2025-02-03 18:06 | Outpatient (REF) | payer BC, SELFPAY | END 2025-02-03 18:07 | disposition home or self-care (01) | LOC: LBN 18:06 | PROVIDERS: PCP Student in an Organized Health Care Education/Training Program; Referring Provider Nurse Practitioner; Visit Provider Nurse Practitioner | DX: R35.0 Frequency of micturition (principal) | CPT/HCPCS: 87086 ==

== ENCOUNTER 2025-02-25 16:10 | Outpatient (REF) | payer BC, SELFPAY | END 2025-02-25 16:11 | disposition home or self-care (01) | LOC: LBN 16:10 | PROVIDERS: PCP Student in an Organized Health Care Education/Training Program; Visit Provider Obstetrics & Gynecology | DX: Z12.4 Encounter for screening for malignant neoplasm of cervix (principal) | CPT/HCPCS: 88142 ==

== ENCOUNTER 2025-05-13 18:10 | Outpatient (REF) | payer BC, SELFPAY ==
[2025-05-15 11:37] LABS: Chlamydia Result Negative (Negative); GC Result Negative (Negative)
== END 2025-05-13 18:11 | disposition home or self-care (01) ==
LOC: LBN 18:10
PROVIDERS: PCP Student in an Organized Health Care Education/Training Program; Visit Provider Obstetrics & Gynecology
DX: N89.8 Other specified noninflammatory disorders of vagina (principal)
CPT/HCPCS: 87491; 87591; 87480; 87510; 87660